=== PATIENT | female | born 1945 | race Caucasian/White ===

== ENCOUNTER → 2017-08-21 | Day surgery (SDC) | payer MEDICARE ==
[~2017-08-21] MED LIST: HYDROmorphone 2 MG/ML VIAL IV; LIDOCAINE 1% PF 2 ML VIAL. ID; LIDOCAINE 2% PF Vial for OR 5 ML VIAL.; MIDAZOLAM HCL/PF 2 MG/2 ML VIAL.; MORPHINE SULFATE 2 MG/ML DISP.SYRIN. IV; ONDANSETRON PF 4 MG/2 ML VIAL. IV; PROCHLORPERAZINE 10 MG/2 ML VIAL. IV; PROPOFOL 50 ML IV; fentaNYL PF VIAL 100 MCG/2 ML VIAL IV
[2017-08-21] MEDS: IV RINGERS,LACTATED 1000ML 1,000 ML IV (07:00)
== END | disposition home or self-care (01) ==
LOC: SURG 11:04
DX: M48.56XD Collapsed vertebra, not elsewhere classified, lumbar region, subsequent encounter for fracture with routine healing (principal); M54.5 Low back pain; M47.896 Other spondylosis, lumbar region; I95.89 Other hypotension; I10 Essential (primary) hypertension; I25.10 Atherosclerotic heart disease of native coronary artery without angina pectoris; E11.9 Type 2 diabetes mellitus without complications; E78.5 Hyperlipidemia, unspecified; K57.30 Diverticulosis of large intestine without perforation or abscess without bleeding; J44.9 Chronic obstructive pulmonary disease, unspecified; Z98.890 Other specified postprocedural states; Z79.82 Long term (current) use of aspirin; Z79.899 Other long term (current) drug therapy; Z95.5 Presence of coronary angioplasty implant and graft; Z88.8 Allergy status to other drugs, medicaments and biological substances
CPT/HCPCS: 22514; 99152; 99153; J2250; J2704

== ENCOUNTER → 2017-08-21 | Outpatient (CLI) | payer MEDICARE ==
[~2017-08-21] MED LIST changes: -HYDROmorphone 2 MG/ML VIAL IV; +IOHEXOL 240 MG/ML 50ML VIAL.; -LIDOCAINE 1% PF 2 ML VIAL. ID; -LIDOCAINE 2% PF Vial for OR 5 ML VIAL.; +LIDOCAINE WITH 8.4% SOD BICARB 3 ML DISP.SYRIN.; -MIDAZOLAM HCL/PF 2 MG/2 ML VIAL.; -MORPHINE SULFATE 2 MG/ML DISP.SYRIN. IV; -ONDANSETRON PF 4 MG/2 ML VIAL. IV; -PROCHLORPERAZINE 10 MG/2 ML VIAL. IV; -PROPOFOL 50 ML IV; +VANCOMYCIN 1GM IVPB FOR OMNI 250 ML; -fentaNYL PF VIAL 100 MCG/2 ML VIAL IV
[2017-08-21 11:30] LABS: ADD MAN DIFF? NO
[2017-08-21 11:33] LABS: BASO # 0.1 x10^3/uL (0.0-0.2); BASO % 1 % (0-3); EOS # 0.2 x10^3/uL (0.0-0.7); EOS % 2 % (0-3); LYMPH # 2.9 x10^3/uL (1.0-4.8); LYMPH % 38 % (24-48); MEAN CORPUSCULAR HEMOGLOBIN 30 pg (25-35); MEAN CORPUSCULAR HGB CONC 33 g/dL (31-37); MEAN CORPUSCULAR VOLUME 90 fL (79-100); MONO # 0.8 x10^3/uL (0.0-1.1); MONO % 10 % (0-9); NEUT # 3.6 x10^3uL (1.8-7.7); NEUT % 48 % (31-73); PLATELET COUNT 191 x10^3/uL (140-400); RED BLOOD COUNT 4.69 x10^6/uL (3.50-5.40); RED CELL DISTRIBUTION WIDTH 13.1 % (11.5-14.5); WHITE BLOOD COUNT 7.5 x10^3/uL (4.0-11.0)
[2017-08-21 11:41] LABS: PROTHROMBIN TIME PATIENT 12.6 SEC (11.7-14.0)
[2017-08-21] MEDS: VANCOMYCIN 1GM IVPB FOR OMNI 250 ML IV ×2 (12:11)
[2017-08-21] MEDS: IOHEXOL 240 MG/ML 50ML VIAL. IT ×2 (12:45)
[2017-08-21] MEDS: LIDOCAINE WITH 8.4% SOD BICARB 3 ML DISP.SYRIN. IJ ×2 (12:45)
== END | disposition home or self-care (01) ==
LOC: INTRAD 11:08
DX: M48.56XA Collapsed vertebra, not elsewhere classified, lumbar region, initial encounter for fracture (principal); Z79.01 Long term (current) use of anticoagulants; E11.42 Type 2 diabetes mellitus with diabetic polyneuropathy; J44.9 Chronic obstructive pulmonary disease, unspecified; E78.00 Pure hypercholesterolemia, unspecified; K21.9 Gastro-esophageal reflux disease without esophagitis; F32.9 Major depressive disorder, single episode, unspecified; F17.200 Nicotine dependence, unspecified, uncomplicated; I25.10 Atherosclerotic heart disease of native coronary artery without angina pectoris; Z87.39 Personal history of other diseases of the musculoskeletal system and connective tissue; Z86.69 Personal history of other diseases of the nervous system and sense organs; Z86.39 Personal history of other endocrine, nutritional and metabolic disease; Z90.710 Acquired absence of both cervix and uterus; Z88.8 Allergy status to other drugs, medicaments and biological substances; Z88.1 Allergy status to other antibiotic agents; Z91.040 Latex allergy status; Z90.49 Acquired absence of other specified parts of digestive tract
CPT/HCPCS: 22514; 36415; 85025; 85610; 99152; 99153; C1758; J3370; Q9966

== ENCOUNTER → 2017-10-22 | Outpatient (CLI) | payer MEDICARE | END | disposition home or self-care (01) | LOC: KCIC MRI 11:58 | DX: M48.56XD Collapsed vertebra, not elsewhere classified, lumbar region, subsequent encounter for fracture with routine healing (principal); M51.37 Other intervertebral disc degeneration, lumbosacral region; M48.061 Spinal stenosis, lumbar region without neurogenic claudication; M47.896 Other spondylosis, lumbar region; M25.78 Osteophyte, vertebrae; Z91.81 History of falling | CPT/HCPCS: 72148 ==

== ENCOUNTER 2018-04-01 15:00 | Inpatient (IN) | payer MEDICARE ==
[~2018-04-01] VITALS: Ht 160 cm; Wt 82.2 kg
[~2018-04-01 15:00] MED LIST changes: +AMLO5TAB7 PO; +ASPI-482 PO; +ATOR40TA59 PO; +ATORVASTATIN CA80 MG PO; +BENZ-8 PO; +BYSTOLIC10 MG PO; +CALC1TAB75 PO; +CARV6.252 PO; +CHOL10003 PO; +CITA10TA8 PO; +CYAN10005 PO; +DIPH50CA PO; +FLUT16SP NS; +GABA600T2 PO; +HYDR25TA9 PO; -IOHEXOL 240 MG/ML 50ML VIAL.; +IPRA3AMP29 NEB; +LEVALBUTER0.63 MG/3 IH; -LIDOCAINE WITH 8.4% SOD BICARB 3 ML DISP.SYRIN.; +LOSA50TA7 PO; +METH500T7 PO; +NAPR250T6 PO; +OMEP20CA9 PO; +OMEP40CA5 PO; +PRAS10TA9 PO; +SENN1TAB99 PO; +TIOT18CA IH; +TRAZ-86 PO; -VANCOMYCIN 1GM IVPB FOR OMNI 250 ML
--- NOTE | 2018-04-01 17:20 | PDOC1 ---
History and Physical Date of Admission Date of Admission DATE: 04/01/18 TIME: 17:19 Identification/Chief Complaint Chief Complaint seen at [facility] ER with chest tightness x 1 week, has known hx CAD/ STENTS, followed by [facility] cardiology. still smokes lightly, hx hx asthma/ copd, transferred here for cardiology eval, stat v/q, and doppler of legs notes pain radiates to neck, is better at this time, some pain in left calf, no known hx dvt's Past Medical History Cardiovascular: CAD, HTN, [place] GI: GERD Musculoskeletal: Osteoarthritis Renal/: Chronic renal insuff Past Surgical History Past Surgical History: Appendectomy, Cholecystectomy, Tonsillectomy, Hysterectomy Family History Family History: High Cholestrol Social History Smoke: <1 pack per day ALCOHOL: occassional Drugs: None Current Medications Current Medications Active Scripts Active Reported Duoneb 0.5-3(2.5) Mg/3 Ml (Albuterol/Ipratropium) 3 Ml Ampul.neb 3 Ml NEB TID PRN PRN Diphenhydramine Hcl 50 Mg Capsule 25 Mg PO Q4-6HRS PRN Carvedilol 6.25 Mg Tablet 1 Tab PO BID Vitamin D3 (Cholecalciferol (Vitamin D3)) 1,000 Unit Tablet 2,000 Unit PO DAILY Vitamin B-12 (Cyanocobalamin (Vitamin B-12)) 1,000 Mcg Tablet 5,000 Mcg PO DAILY Omeprazole 40 Mg Capsule.dr 40 Mg PO DAILY Atorvastatin Calcium 80 Mg Tablet 80 Mg PO HS Fluticasone Propionate Nasal [place] (Fluticasone Propionate) 16 Gm [place].susp 1 [place] NS BID Trazodone Hcl 100 Mg Tablet 1 Tab PO QHS Spiriva (Tiotropium [place]) 18 Mcg Cap.w.dev 1 Cap IH DAILY Losartan Potassium 50 Mg Tablet 50 Mg PO DAILY Gabapentin 600 Mg Tablet 600 Mg PO TID Celexa (Citalopram Hydrobromide) 10 Mg Tablet 1 Tab PO DAILY Aspir 81 (Aspirin) 81 Mg Tablet.dr 1 Tab PO DAILY Allergies Allergies: Coded Allergies: ampicillin (Verified Allergy, Intermediate, 10/03/15) cyclobenzaprine (Verified Allergy, Intermediate, 10/03/15) latex (Verified Allergy, Intermediate, 10/03/15) pravastatin (Verified Allergy, Intermediate, 08/13/17) ROS Review of System 14 pt ros otherwise neg General: No: Chills, Night Sweats, Fatigue, Malaise, Appetite, Other PSYCHOLOGICAL ROS: No: Anxiety, Behavioral Disorder, Concentration difficultie , Decreased libido, Depression, Disorientation, Hallucinations, Hostility, Irritablity, Memory difficulties, Mood Swings, Obsessive thoughts, Physical abuse, Sexual abuse, Sleep disturbances, Suicidal ideation, Other Eyes: No Blurry vision, No Decreased vision, No Double vision, No Dry eyes, No Excessive tearing, No Eye Pain, No Itchy Eyes, No Loss of vision, No Photophobia , No Scotomata, No Uses contacts, No Uses glasses, No Other HEENT: YES: Hearing change; No: Heacaches, Visual Changes, Nasal congestion, Nasal discharge, Oral lesions, Sinus pain, Sore Throat, Epistaxis, Sneezing, Snoring, Tinnitus, Vertigo, Vocal changes, Other ALLERGY AND IMMUNOLOGY: No: Hives, Insect Bite Sensitivity, Itchy/Watery Eyes, Nasal Congestion, Post Nasal Drip, Seasonal Allergies, Other Hematological and Lymphatic: No: Bleeding Problems, Blood Clots, Blood Transfusions, Brusing, Night Sweats, Pallor, Swollen Lymph Nodes, Other ENDOCRINE: No: Breast Changes, Galactorrhea, Hair Pattern Changes, Hot Flashes , Malaise/lethargy, Mood Swings, Palpitations, Polydipsia/polyuria, Skin Changes , Temperature Intolerance, Unexpected Weight Changes, Other Respiratory: YES: Cough, Shortness of breath, SOB with excertion Cardiovascular: yes Chest Pain Musculoskeletal: Yes Joint Stiffness Skin: No Dry Skin, No Eczema, No Hair Changes, No Lumps, No Mole Changes, No Mottling, No Nail Changes, No Pruritus, No Rash, No Skin Lesion Changes, No Other, No Acne Physical Exam General: Alert, Oriented X3, Cooperative HEENT: Atraumatic, PERRLA Lungs: Clear to auscultation Heart: S1S2, RRR Breasts: Not examined Abdomen: Normal bowel sounds, Soft Rectal Exam: not examined PELVIC: Examination not indicated Extremities: No clubbing, No cyanosis, Other (trace left leg edema) Neuro: Normal gait, Normal speech, Cranial nerves 3-12 NL Psych/Mental Status: Mental status NL, Mood NL VTE Prophylaxis Ordered VTE Prophylaxis Devices: Yes VTE Pharmacological Prophylaxi: Yes Assessment/Plan Assessment/Plan impression 1. chest pain with known CAD 2. HTN 3, GERD 4. COPD 5. HX ASTHMA 6. HX depression 7. elevated d-dimer plan 1. cvc admit 2. cardiology consult 3. stat vq scan 4, statin 5. sq lovenox 70mg sq bid 6, gi prophylaxis 7. yehuda troponin i 8. stat venous doppler both legs DANIELLE PARKER MD Apr 01, 2018 17:20
[2018-04-01] MEDS ORDERED: MAGNESIUM HYDROXIDE 2,400 MG/30 ML ORAL.SUSP. PO PRN (17:30)
[2018-04-01] MEDS ORDERED: NITROGLYCERIN SUBLINGUAL 0.4 MG BOTTLE OF 25. SL PRN (17:30)
[2018-04-01] MEDS ORDERED: ASPIRIN 325 MG TABLET PO ONE (17:30)
[2018-04-01] MEDS ORDERED: ACETAMINOPHEN 325 MG TABLET. PO PRN (17:30)
[2018-04-01] MEDS ORDERED: 0.9 % SODIUM CHLORIDE 10 ML DISP.SYRIN. IV PRN (17:30)
[2018-04-01] MEDS ORDERED: PROCHLORPERAZINE 25 MG SUPP.RECT. PR PRN (17:30)
[2018-04-01] MEDS ORDERED: CALC600T4 PO (17:31)
[2018-04-01] MEDS ORDERED: MECL25TA3 PO (17:31)
[2018-04-01] MEDS ORDERED: TIOT18CA IH (17:31)
[2018-04-01] MEDS ORDERED: CITA10TA4 PO (17:36)
[2018-04-01] MEDS ORDERED: IPRA0.2S5 IH (17:36)
[2018-04-01] MEDS ORDERED: DICL75TA PO (17:36)
[2018-04-01] MEDS ORDERED: LOSA100T7 PO (17:36)
[2018-04-01] MEDS ORDERED: MECLIZINE HCL 12.5 MG TABLET. PO PRN (18:00)
[2018-04-01] MEDS: CARVEDILOL 6.25 MG TABLET. PO SCH (18:16)
[2018-04-01] MEDS: IV NORMAL SALINE 1000ML BAG 1,000 ML IV SCH (18:17)
[2018-04-01] MEDS: NITROGLYCERIN OINT 1 GM PACKET. TP SCH ×2 (18:17→23:35)
[2018-04-01 19:00] VITALS: BP 170/77
--- NOTE | 2018-04-01 19:08 | RAD ---
Ultrasound venous Doppler INDICATION:LEFT CALF PAIN TECHNIQUE: Grayscale, color Doppler and spectral waveform ultrasound images of the bilateral lower extremities deep veins obtained. COMPARISON: None FINDINGS: The interrogated deep veins are compressible and demonstrate evidence of blood flow with normal respiratory variation and response to augmentation. IMPRESSION: No sonographic evidence of acute DVT of the bilateral lower extremity deep veins. Electronically signed by: Alexi He DO (04/01/2018 7:05 PM) [facility]
[2018-04-01] MEDS: IPRATRPIUM/ALBUTEROL 0.5/2.5MG 3 ML NEBU. NEB SCH (19:46)
[2018-04-01] MEDS ORDERED: ENOXAPARIN 40 MG/0.4 ML SYRINGE. SQ SCH (21:00)
--- NOTE | 2018-04-01 21:00 | RAD ---
Indication: Chest pain for one week. Positive d-dimer. TECHNIQUE: Nuclear medicine VQ scan with 20 mCi of xenon-133 for ventilation imaging and 6.3 mCi of technetium 99m MAA for perfusion imaging. COMPARISON: None FINDINGS: The ventilation exam demonstrates homogeneous distribution of the xenon-133 with appropriate washout and washout. Multiple wedge-shaped areas of ventilation/perfusion mismatch is seen in both lungs. IMPRESSION: High probability VQ scan. CT angiogram of the chest is strongly recommended. Electronically signed by: Alexi He DO (04/01/2018 8:56 PM) [facility]
[2018-04-01] MEDS: FLUTICASONE 50MCG/NASAL SPRAY 16GM BOTTLE. NS SCH (21:34)
[2018-04-01] MEDS: GABAPENTIN 300 MG CAPSULE. PO SCH (21:34)
[2018-04-01] MEDS: DICLOFENAC SODIUM 25 MG TABLET.DR PO SCH (21:35)
[2018-04-01] MEDS: DOCUSATE SODIUM 100 MG CAPSULE. PO SCH (21:35)
[2018-04-01] MEDS: traZODone 100 MG TABLET. PO SCH (21:35)
[2018-04-01] MEDS: SENNOSIDES/DOCUSATE 8.6/50MG TABLET. PO SCH (21:36)
[2018-04-01] MEDS: ATORVASTATIN CALCIUM 40 MG TABLET. PO SCH (21:36)
[2018-04-01] MEDS ORDERED: IPRATROPIUM BROMIDE 0.5 MG/2.5 ML NEBU. IH SCH (22:00)
[2018-04-01 22:32] VITALS: BP 140/62
[2018-04-02] VITALS (8 sets, daily range): BP systolic 99–181; BP diastolic 37–77
[2018-04-02] MEDS: ONDANSETRON PF 4 MG/2 ML VIAL. IV PRN (01:56)
[2018-04-02] MEDS: MORPHINE SULFATE 2 MG/ML VIAL. IV PRN ×5 (01:56→22:59)
[2018-04-02] MEDS: ENALAPRILAT 1.25 MG/ML VIAL. IVP PRN (03:30)
[2018-04-02] MEDS: IV NORMAL SALINE 1000ML BAG 1,000 ML IV SCH ×3 (03:30→20:39)
[2018-04-02 05:20] LABS: BASO # 0.1 x10^3/uL (0.0-0.2); BASO % 1 % (0-3); EOS # 0.3 x10^3/uL (0.0-0.7); EOS % 3 % (0-3); HEMATOCRIT 35.6 % (36.0-47.0); LYMPH % 43 % (24-48); MEAN CORPUSCULAR HEMOGLOBIN 31 pg (25-35); MEAN CORPUSCULAR HGB CONC 34 g/dL (31-37); MEAN CORPUSCULAR VOLUME 91 fL (79-100); MONO % 10 % (0-9); NEUT % 42 % (31-73); PLATELET COUNT 202 x10^3/uL (140-400); RED BLOOD COUNT 3.92 x10^6/uL (3.50-5.40); RED CELL DISTRIBUTION WIDTH 13.3 % (11.5-14.5); WHITE BLOOD COUNT 9.4 x10^3/uL (4.0-11.0)
[2018-04-02 05:27] LABS: ALBUMIN 3.1 g/dL (3.4-5.0); ALBUMIN/GLOBULIN RATIO 0.9 (1.0-1.7); CALCIUM 8.8 mg/dL (8.5-10.1); GFR 54.7; POTASSIUM 4.8 mmol/L (3.5-5.1); TOTAL BILIRUBIN 0.3 mg/dL (0.2-1.0); TOTAL PROTEIN 6.6 g/dL (6.4-8.2)
[2018-04-02] MEDS: NITROGLYCERIN OINT 1 GM PACKET. TP SCH ×4 (06:20→22:59)
[2018-04-02] MEDS: IPRATRPIUM/ALBUTEROL 0.5/2.5MG 3 ML NEBU. NEB SCH ×4 (07:28→19:05)
--- NOTE | 2018-04-02 07:55 | EKG ---
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
[2018-04-02 08:06] LABS: CHOLESTEROL/HDL RATIO 4.5
[2018-04-02] MEDS: LOSARTAN POTASSIUM 50 MG TABLET. PO SCH (09:00)
--- NOTE | 2018-04-02 09:45 | PDOC2 ---
[employer] 04/02/18 0945: CARDIAC CONSULT DATE OF CONSULT Date of Consult DATE: 04/02/18 TIME: 09:41 REASON FOR CONSULT Reason for Consult: chest pain REFERRING PHYSICIAN Referring Physician: Giovanni SOURCE Source: Chart review, Patient HISTORY OF PRESENT ILLNESS HISTORY OF PRESENT ILLNESS 72 year old female transferred from [facility] after presenting there with a one week history of chest heaviness involving the entire thoracic region. Associated with dizziness and nausea. Usually starts at night or awakens her from sleep. She has treated with multiple doses of aspirin. D-Dimer @ [facility] > [address] there due to elevated Cr. LE venous Dopplers negative for DVT; VQ scan high probability for PE. Only recent travel was 1.5 hr car trip to [facility]. Denies prior history of DVT/PE. History of CAD with stents placed to unknown targets @ [facility]. BP with accelerated HTN Reason for Visit: prob pulm embolus PAST MEDICAL HISTORY Cardiovascular: CAD (with prior PCI/stents-2015), HTN, [place], Hyperlipidemia Pulmonary: Asthma, COPD CENTRAL NERVOUS SYSTEM: Other (none) GI: GERD Heme/Onc: No pertinent hx Hepatobiliary: No pertinent hx Psych: No pertinent hx Musculoskeletal: No pain Rheumatologic: No pertinent hx Infectious disease: No pertinent hx Renal/: Chronic renal insuff Endocrine: No pertinent hx Dermatology: No pertinent hx PAST SURGICAL HISTORY Past Surgical History: Appendectomy, Cholecystectomy, Tonsillectomy, Hysterectomy FAMILY HISTORY Family History: High Cholestrol SOCIAL HISTORY Smoke: <1 pack per day ALCOHOL: social Drugs: None Lives: with Family CURRENT MEDICATIONS CURRENT MEDICATIONS Current Medications Medications (Trade) Dose Ordered Sig/Gale Route PRN Reason Start Time Stop Time Status Last Admin Dose Admin Aspirin (Gerry Aspirin) 325 mg 1X ONCE PO 04/01/18 17:30 04/01/18 17:31 DC 04/01/18 18:16 Nitroglycerin (Nitro-Bid Oint) 1 inch Q6HRS TP 04/01/18 18:00 04/01/18 23:35 Morphine Sulfate (Morphine Sulfate) 1 mg PRN Q10MIN PRN IV CHEST PAIN 04/01/18 17:30 04/02/18 03:29 Ondansetron HCl (Zofran) 4 mg PRN Q6HRS PRN IV NAUSEA/VOMITING 9/13/18 17:30 04/02/18 01:56 Sodium Chloride 1,000 ml @ 100 mls/hr Q10H IV 04/01/18 17:21 04/02/18 03:30 Senna/Docusate Sodium (Senna Plus) 1 tab BID PO 04/01/18 21:00 04/01/18 21:36 Docusate Sodium (Colace) 100 mg BID PO 04/01/18 21:00 04/01/18 21:35 Carvedilol (Coreg) 6.25 mg BIDWMEALS PO 04/01/18 18:00 04/01/18 18:16 Fluticasone Propionate (Flonase) 1 spray BID NS 04/01/18 21:00 04/01/18 21:34 Trazodone HCl (Desyrel) 100 mg QHS PO 04/01/18 21:00 04/01/18 21:35 Atorvastatin Calcium (Lipitor) 80 mg QHS PO 04/01/18 21:00 04/01/18 21:36 Diclofenac Sodium (Voltaren) 75 mg BID PO 04/01/18 21:00 04/01/18 21:35 Gabapentin (Neurontin) 600 mg TID PO 04/01/18 21:00 04/01/18 21:34 Albuterol/ Ipratropium (Duoneb) 3 ml RTQID NEB 04/01/18 20:00 04/02/18 07:28 Enoxaparin Sodium (Lovenox 80mg Syringe) 80 mg Q12HR SQ 04/01/18 19:01 04/02/18 07:18 DC 04/01/18 18:18 Enalaprilat (Vasotec Inj) 1.25 mg PRN Q6HRS PRN IVP HYPERTENSION, SEE COMMENTS 04/02/18 03:15 04/02/18 03:30 ALLERGIES ALLERGIES: Coded Allergies: ampicillin (Verified Allergy, Intermediate, 10/03/15) cyclobenzaprine (Verified Allergy, Intermediate, 10/03/15) latex (Verified Allergy, Intermediate, 10/03/15) pravastatin (Verified Allergy, Intermediate, 08/13/17) ROS General: No: Chills, Night Sweats, Fatigue, Malaise, Appetite, Other PSYCHOLOGICAL ROS: No: Anxiety, Behavioral Disorder, Concentration difficultie , Decreased libido, Depression, Disorientation, Hallucinations, Hostility, Irritablity, Memory difficulties, Mood Swings, Obsessive thoughts, Physical abuse, Sexual abuse, Sleep disturbances, Suicidal ideation, Other Eyes: No Blurry vision, No Decreased vision, No Double vision, No Dry eyes, No Excessive tearing, No Eye Pain, No Itchy Eyes, No Loss of vision, No Photophobia , No Scotomata, No Uses contacts, No Uses glasses, No Other HEENT: No: Heacaches, Visual Changes, Hearing change, Nasal congestion, Nasal discharge, Oral lesions, Sinus pain, Sore Throat, Epistaxis, Sneezing, Snoring, Tinnitus, Vertigo, Vocal changes, Other ENDOCRINE: No: Breast Changes, Galactorrhea, Hair Pattern Changes, Hot Flashes , Malaise/lethargy, Mood Swings, Palpitations, Polydipsia/polyuria, Skin Changes , Temperature Intolerance, Unexpected Weight Changes, Other Breast: No New/Changing Breast Lumps, No Nipple changes, No Nipple discharge, No Other Respiratory: No: Cough, Hemoptysis, Orthopnea, Pleuritic Pain, Shortness of breath, SOB with excertion, Sputum Changes, Stridor, Tachypnea, Wheezing, Other Cardiovascular: yes Chest Pain Gastrointestinal: Yes Nausea, Yes Vomiting Genitourinary: No Dysuria, No Frequency, No Incontinence, No Hematuria, No Retention, No Discharge, No Urgency, No Pain, No Flank Pain, No Other Musculoskeletal: No Gait Disturbance, No Joint Pain, No Joint Stiffness, No Joint Swelling, No Muscle Pain, No Muscular Weakness, No Pain In:, No Swelling In:, No Other Neurological: No Behavorial Changes, No Bowel/Bladder ControlChng, No Confusion , No Dizziness, No Gait Disturbance, No Headaches, No Impaired Coord/balance, No Memory Loss, No Numbness/Tingling, No Seizures, No Speech Problems, No Tremors, No Visual Changes, No Weakness, No Other Skin: No Dry Skin, No Eczema, No Hair Changes, No Lumps, No Mole Changes, No Mottling, No Nail Changes, No Pruritus, No Rash, No Skin Lesion Changes, No Other, No Acne PHYSICAL EXAM General: Alert, Oriented X3, Cooperative HEENT: Atraumatic, PERRLA Lungs: Clear to auscultation Heart: Normal S1, Normal S2, No murmurs Abdomen: Soft Extremities: No edema, Normal pulses Skin: No rashes Neuro: Normal speech Psych/Mental Status: Mental status NL, Mood NL MUSCULOSKELETAL: No deformity VITALS VITALS Vital Signs Date Time Temp Pulse Resp B/P (MAP) Pulse Ox O2 Delivery O2 Flow Rate FiO2 04/02/18 07:28 95 Room Air 04/02/18 06:15 98.2 65 16 99/43 (61) 2.0 98.2 LABS Lab: Laboratory Tests Test 04/01/18 17:30 04/01/18 20:20 04/01/18 20:57 04/02/18 02:30 Prothrombin Time 12.0 SEC (11.7-14.0) Prothromb Time International Ratio 0.9 (0.8-1.1) Troponin I Quantitative < 0.017 ng/mL (0.000-0.055) < 0.017 ng/mL (0.000-0.055) < 0.017 ng/mL (0.000-0.055) Glucose (Fingerstick) 135 mg/dL (70-99) White Blood Count 9.4 x10^3/uL (4.0-11.0) Red Blood Count 3.92 x10^6/uL (3.50-5.40) Hemoglobin 12.0 g/dL (12.0-15.5) Hematocrit 35.6 % (36.0-47.0) Mean Corpuscular Volume 91 fL (79-100) Mean Corpuscular Hemoglobin 31 pg (25-35) Mean Corpuscular Hemoglobin Concent 34 g/dL (31-37) Red Cell Distribution Width 13.3 % (11.5-14.5) Platelet Count 202 x10^3/uL (140-400) Neutrophils (%) (Auto) 42 % (31-73) Lymphocytes (%) (Auto) 43 % (24-48) Monocytes (%) (Auto) 10 % (0-9) Eosinophils (%) (Auto) 3 % (0-3) Basophils (%) (Auto) 1 % (0-3) Neutrophils # (Auto) 4.0 x10^3uL (1.8-7.7) Lymphocytes # (Auto) 4.0 x10^3/uL (1.0-4.8) Monocytes # (Auto) 1.0 x10^3/uL (0.0-1.1) Eosinophils # (Auto) 0.3 x10^3/uL (0.0-0.7) Basophils # (Auto) 0.1 x10^3/uL (0.0-0.2) Sodium Level 144 mmol/L (136-145) Potassium Level 4.8 mmol/L (3.5-5.1) Chloride Level 105 mmol/L (98-107) Carbon Dioxide Level 34 mmol/L (21-32) Anion Gap 5 (6-14) Blood Urea Nitrogen 23 mg/dL (7-20) Creatinine 1.0 mg/dL (0.6-1.0) Estimated GFR (Cockcroft-Gault) 54.7 BUN/Creatinine Ratio 23 (6-20) Glucose Level 131 mg/dL (70-99) Calcium Level 8.8 mg/dL (8.5-10.1) Total Bilirubin 0.3 mg/dL (0.2-1.0) Aspartate Amino Transf (AST/SGOT) 24 U/L (15-37) Alanine Aminotransferase (ALT/SGPT) 29 U/L (14-59) Alkaline Phosphatase 90 U/L (46-116) Total Protein 6.6 g/dL (6.4-8.2) Albumin 3.1 g/dL (3.4-5.0) Albumin/Globulin Ratio 0.9 (1.0-1.7) Triglycerides Level 193 mg/dL (0-150) Cholesterol Level 176 mg/dL (0-200) LDL Cholesterol, Calculated 98 mg/dL (0-100) VLDL Cholesterol, Calculated 39 mg/dL (0-40) Non-HDL Cholesterol Calculated 137 mg/dL (0-129) HDL Cholesterol 39 mg/dL (40-60) Cholesterol/HDL Ratio 4.5 Thyroid Stimulating Hormone (TSH) 1.059 uIU/mL (0.358-3.74) Test 04/02/18 08:25 Glucose (Fingerstick) 117 mg/dL (70-99) EKG EKG SR; no acute changes ECHOCARDIOGRAM ECHOCARDIOGRAM pending ASSESSMENT/PLAN ASSESSMENT/PLAN 1. chest pain --atypical presentation --troponin levels not consistent with AMI --EKG without acute changes --TTE to evaluate LVEF and assess for WMA --request records from [place] 2. pulmonary embolus --high prob VQ scan --continue BID lovenox --? CTA to confirm; defer to pulm 3. Asthma/COPD --persistent tobacco abuse --defer to pulm 4. HTN --continue usual meds 5. HLD --check FLP --continue statin therapy 6. GERD --continue home meds INEZ CARROLL MD 04/02/182: CARDIAC CONSULT ASSESSMENT/PLAN ASSESSMENT/PLAN Pt. seen and examined. Agree with above [employer] note. 72 y.o woman with prior CAD s/p PCI. Denies any recurrent similar symptoms but has diffuse chest pressure with features suggestive of unstable angina. She also has atypical features in the setting of GERD and prior esophageal issues and dysphagia. Given significant cardiac history with an abnormal EKG, will plan for cath in a.m. Discussed r/b/a and patient wishes to proceed. Thanks. Will f/u after cath. MAXIMO WAITE APRN Apr 02, 2018 09:45 INEZ CARROLL MD Apr 02, 2018 18:12
[2018-04-02] MEDS: CALCIUM CARBONATE 500 MG TABLET PO SCH (10:18)
[2018-04-02] MEDS: GABAPENTIN 300 MG CAPSULE. PO SCH ×3 (10:18→20:35)
[2018-04-02] MEDS: CARVEDILOL 6.25 MG TABLET. PO SCH ×2 (10:20→17:52)
[2018-04-02] MEDS: PANTOPRAZOLE 40 MG TABLET.DR. PO SCH (10:21)
[2018-04-02] MEDS: CYANOCOBALAMIN (VITAMIN B-12) 1,000 MCG TABLET. PO SCH (10:21)
[2018-04-02] MEDS: DOCUSATE SODIUM 100 MG CAPSULE. PO SCH ×2 (10:21→20:34)
[2018-04-02] MEDS: SENNOSIDES/DOCUSATE 8.6/50MG TABLET. PO SCH ×2 (10:21→20:39)
[2018-04-02] MEDS: FLUTICASONE 50MCG/NASAL SPRAY 16GM BOTTLE. NS SCH ×2 (10:22→20:34)
[2018-04-02] MEDS: CHOLECALCIFEROL (VITAMIN D3) 1,000 UNIT TABLET PO SCH (10:22)
[2018-04-02] MEDS: CITALOPRAM 10 MG TABLET. PO SCH (10:22)
[2018-04-02] MEDS: ASPIRIN ENTERIC COATED 81 MG TABLET.DR. PO SCH (10:22)
[2018-04-02] MEDS: DICLOFENAC SODIUM 25 MG TABLET.DR PO SCH ×2 (10:22→20:35)
--- NOTE | 2018-04-02 10:25 | PDOC ---
PROGRESS NOTES Chief Complaint Chief Complaint CC: Chest pain DE, 2 stents CAD HTN GERD Osteoarthritis Chronic renal insufficiency Appendectomy Cholecystectomy Tonsillectomy Hysterectomy <1 ppd smoker History of Present Illness History of Present Illness Pt. seen and examined Pt. alert and oriented; pt's affect good Pt. was seen at [facility] ER for 1 wk chest tightness; hx of CAD and 2 stents DW nursing Pt. receiving echo upon entrance Cardiac workup in-progress Troponin I: <0.017 (04/02) Vitals Vitals Vital Signs Date Time Temp Pulse Resp B/P (MAP) Pulse Ox O2 Delivery O2 Flow Rate FiO2 04/02/18 09:52 63 111/51 (71) 04/02/18 07:28 95 Room Air 04/02/18 06:15 98.2 16 2.0 98.2 Physical Exam General: Alert, Oriented X3, Cooperative Heart: Regular rate, Normal S1, Normal S2 Lungs: Clear Abdomen: Normal bowel sounds, Soft Extremities: No clubbing, No cyanosis, Other (trace left leg edema) Skin: No rashes, No breakdown Labs LABS Laboratory Tests Test 04/01/18 17:30 04/01/18 20:20 04/01/18 20:57 04/02/18 02:30 Prothrombin Time 12.0 SEC (11.7-14.0) Prothromb Time International Ratio 0.9 (0.8-1.1) Troponin I Quantitative < 0.017 ng/mL (0.000-0.055) < 0.017 ng/mL (0.000-0.055) < 0.017 ng/mL (0.000-0.055) Glucose (Fingerstick) 135 mg/dL (70-99) White Blood Count 9.4 x10^3/uL (4.0-11.0) Red Blood Count 3.92 x10^6/uL (3.50-5.40) Hemoglobin 12.0 g/dL (12.0-15.5) Hematocrit 35.6 % (36.0-47.0) Mean Corpuscular Volume 91 fL (79-100) Mean Corpuscular Hemoglobin 31 pg (25-35) Mean Corpuscular Hemoglobin Concent 34 g/dL (31-37) Red Cell Distribution Width 13.3 % (11.5-14.5) Platelet Count 202 x10^3/uL (140-400) Neutrophils (%) (Auto) 42 % (31-73) Lymphocytes (%) (Auto) 43 % (24-48) Monocytes (%) (Auto) 10 % (0-9) Eosinophils (%) (Auto) 3 % (0-3) Basophils (%) (Auto) 1 % (0-3) Neutrophils # (Auto) 4.0 x10^3uL (1.8-7.7) Lymphocytes # (Auto) 4.0 x10^3/uL (1.0-4.8) Monocytes # (Auto) 1.0 x10^3/uL (0.0-1.1) Eosinophils # (Auto) 0.3 x10^3/uL (0.0-0.7) Basophils # (Auto) 0.1 x10^3/uL (0.0-0.2) Sodium Level 144 mmol/L (136-145) Potassium Level 4.8 mmol/L (3.5-5.1) Chloride Level 105 mmol/L (98-107) Carbon Dioxide Level 34 mmol/L (21-32) Anion Gap 5 (6-14) Blood Urea Nitrogen 23 mg/dL (7-20) Creatinine 1.0 mg/dL (0.6-1.0) Estimated GFR (Cockcroft-Gault) 54.7 BUN/Creatinine Ratio 23 (6-20) Glucose Level 131 mg/dL (70-99) Calcium Level 8.8 mg/dL (8.5-10.1) Total Bilirubin 0.3 mg/dL (0.2-1.0) Aspartate Amino Transf (AST/SGOT) 24 U/L (15-37) Alanine Aminotransferase (ALT/SGPT) 29 U/L (14-59) Alkaline Phosphatase 90 U/L (46-116) Total Protein 6.6 g/dL (6.4-8.2) Albumin 3.1 g/dL (3.4-5.0) Albumin/Globulin Ratio 0.9 (1.0-1.7) Triglycerides Level 193 mg/dL (0-150) Cholesterol Level 176 mg/dL (0-200) LDL Cholesterol, Calculated 98 mg/dL (0-100) VLDL Cholesterol, Calculated 39 mg/dL (0-40) Non-HDL Cholesterol Calculated 137 mg/dL (0-129) HDL Cholesterol 39 mg/dL (40-60) Cholesterol/HDL Ratio 4.5 Thyroid Stimulating Hormone (TSH) 1.059 uIU/mL (0.358-3.74) Test 04/02/18 08:25 Glucose (Fingerstick) 117 mg/dL (70-99) Review of Systems Review of Systems C/O weakness Pt. denies current chest pain Assessment and Plan Assessmemt and Plan CC: Chest pain Assessment: Chest pain DE, 2 stents CAD HTN GERD Osteoarthritis Chronic renal insufficiency Appendectomy Cholecystectomy Tonsillectomy Hysterectomy <1 ppd smoker Plan: Continue cardiac monitoring Awaiting echo results and cardiac workup Fu w/ cardio; appreciate input Monitor labs PT/OT Home meds Continue current diet Comment Review of Relevant I have reviewed the following items sarah (where applicable) has been applied. Labs Laboratory Tests Test 04/01/18 17:30 04/01/18 20:20 04/01/18 20:57 04/02/18 02:30 Prothrombin Time 12.0 SEC (11.7-14.0) Prothromb Time International Ratio 0.9 (0.8-1.1) Troponin I Quantitative < 0.017 ng/mL (0.000-0.055) < 0.017 ng/mL (0.000-0.055) < 0.017 ng/mL (0.000-0.055) Glucose (Fingerstick) 135 mg/dL (70-99) White Blood Count 9.4 x10^3/uL (4.0-11.0) Red Blood Count 3.92 x10^6/uL (3.50-5.40) Hemoglobin 12.0 g/dL (12.0-15.5) Hematocrit 35.6 % (36.0-47.0) Mean Corpuscular Volume 91 fL (79-100) Mean Corpuscular Hemoglobin 31 pg (25-35) Mean Corpuscular Hemoglobin Concent 34 g/dL (31-37) Red Cell Distribution Width 13.3 % (11.5-14.5) Platelet Count 202 x10^3/uL (140-400) Neutrophils (%) (Auto) 42 % (31-73) Lymphocytes (%) (Auto) 43 % (24-48) Monocytes (%) (Auto) 10 % (0-9) Eosinophils (%) (Auto) 3 % (0-3) Basophils (%) (Auto) 1 % (0-3) Neutrophils # (Auto) 4.0 x10^3uL (1.8-7.7) Lymphocytes # (Auto) 4.0 x10^3/uL (1.0-4.8) Monocytes # (Auto) 1.0 x10^3/uL (0.0-1.1) Eosinophils # (Auto) 0.3 x10^3/uL (0.0-0.7) Basophils # (Auto) 0.1 x10^3/uL (0.0-0.2) Sodium Level 144 mmol/L (136-145) Potassium Level 4.8 mmol/L (3.5-5.1) Chloride Level 105 mmol/L (98-107) Carbon Dioxide Level 34 mmol/L (21-32) Anion Gap 5 (6-14) Blood Urea Nitrogen 23 mg/dL (7-20) Creatinine 1.0 mg/dL (0.6-1.0) Estimated GFR (Cockcroft-Gault) 54.7 BUN/Creatinine Ratio 23 (6-20) Glucose Level 131 mg/dL (70-99) Calcium Level 8.8 mg/dL (8.5-10.1) Total Bilirubin 0.3 mg/dL (0.2-1.0) Aspartate Amino Transf (AST/SGOT) 24 U/L (15-37) Alanine Aminotransferase (ALT/SGPT) 29 U/L (14-59) Alkaline Phosphatase 90 U/L (46-116) Total Protein 6.6 g/dL (6.4-8.2) Albumin 3.1 g/dL (3.4-5.0) Albumin/Globulin Ratio 0.9 (1.0-1.7) Triglycerides Level 193 mg/dL (0-150) Cholesterol Level 176 mg/dL (0-200) LDL Cholesterol, Calculated 98 mg/dL (0-100) VLDL Cholesterol, Calculated 39 mg/dL (0-40) Non-HDL Cholesterol Calculated 137 mg/dL (0-129) HDL Cholesterol 39 mg/dL (40-60) Cholesterol/HDL Ratio 4.5 Thyroid Stimulating Hormone (TSH) 1.059 uIU/mL (0.358-3.74) Test 04/02/18 08:25 Glucose (Fingerstick) 117 mg/dL (70-99) Laboratory Tests Test 04/01/18 17:30 04/01/18 20:20 04/01/18 20:57 04/02/18 02:30 Prothrombin Time 12.0 SEC (11.7-14.0) Prothromb Time International Ratio 0.9 (0.8-1.1) Troponin I Quantitative < 0.017 ng/mL (0.000-0.055) < 0.017 ng/mL (0.000-0.055) < 0.017 ng/mL (0.000-0.055) Glucose (Fingerstick) 135 mg/dL (70-99) White Blood Count 9.4 x10^3/uL (4.0-11.0) Red Blood Count 3.92 x10^6/uL (3.50-5.40) Hemoglobin 12.0 g/dL (12.0-15.5) Hematocrit 35.6 % (36.0-47.0) Mean Corpuscular Volume 91 fL (79-100) Mean Corpuscular Hemoglobin 31 pg (25-35) Mean Corpuscular Hemoglobin Concent 34 g/dL (31-37) Red Cell Distribution Width 13.3 % (11.5-14.5) Platelet Count 202 x10^3/uL (140-400) Neutrophils (%) (Auto) 42 % (31-73) Lymphocytes (%) (Auto) 43 % (24-48) Monocytes (%) (Auto) 10 % (0-9) Eosinophils (%) (Auto) 3 % (0-3) Basophils (%) (Auto) 1 % (0-3) Neutrophils # (Auto) 4.0 x10^3uL (1.8-7.7) Lymphocytes # (Auto) 4.0 x10^3/uL (1.0-4.8) Monocytes # (Auto) 1.0 x10^3/uL (0.0-1.1) Eosinophils # (Auto) 0.3 x10^3/uL (0.0-0.7) Basophils # (Auto) 0.1 x10^3/uL (0.0-0.2) Sodium Level 144 mmol/L (136-145) Potassium Level 4.8 mmol/L (3.5-5.1) Chloride Level 105 mmol/L (98-107) Carbon Dioxide Level 34 mmol/L (21-32) Anion Gap 5 (6-14) Blood Urea Nitrogen 23 mg/dL (7-20) Creatinine 1.0 mg/dL (0.6-1.0) Estimated GFR (Cockcroft-Gault) 54.7 BUN/Creatinine Ratio 23 (6-20) Glucose Level 131 mg/dL (70-99) Calcium Level 8.8 mg/dL (8.5-10.1) Total Bilirubin 0.3 mg/dL (0.2-1.0) Aspartate Amino Transf (AST/SGOT) 24 U/L (15-37) Alanine Aminotransferase (ALT/SGPT) 29 U/L (14-59) Alkaline Phosphatase 90 U/L (46-116) Total Protein 6.6 g/dL (6.4-8.2) Albumin 3.1 g/dL (3.4-5.0) Albumin/Globulin Ratio 0.9 (1.0-1.7) Triglycerides Level 193 mg/dL (0-150) Cholesterol Level 176 mg/dL (0-200) LDL Cholesterol, Calculated 98 mg/dL (0-100) VLDL Cholesterol, Calculated 39 mg/dL (0-40) Non-HDL Cholesterol Calculated 137 mg/dL (0-129) HDL Cholesterol 39 mg/dL (40-60) Cholesterol/HDL Ratio 4.5 Thyroid Stimulating Hormone (TSH) 1.059 uIU/mL (0.358-3.74) Test 04/02/18 08:25 Glucose (Fingerstick) 117 mg/dL (70-99) Medications Current Medications Aspirin (Gerry Aspirin) 325 mg 1X ONCE PO Last administered on 04/01/18at 18:16 ; Start 04/01/18 at 17:30; Stop 04/01/18 at 17:31; Status DC Nitroglycerin (Nitrostat) 0.4 mg PRN Q5MIN PRN SL CHEST PAIN; Start 04/01/18 at 17:30 Nitroglycerin (Nitro-Bid Oint) 1 inch Q6HRS TP Last administered on 04/01/18at 23:35; Start 04/01/18 at 18:00 Morphine Sulfate (Morphine Sulfate) 1 mg PRN Q10MIN PRN IV CHEST PAIN Last administered on 04/02/18at 03:29; Start 04/01/18 at 17:30 Acetaminophen (Tylenol) 650 mg PRN Q6HRS PRN PO MILD PAIN / TEMP; Start at 17:30 Ondansetron HCl (Zofran) 4 mg PRN Q6HRS PRN IV NAUSEA/VOMITING Last administered on 04/02/18at 01:56; Start 04/01/18 at 17:30 Prochlorperazine (Compazine) 25 mg PRN Q12HR PRN TN NAUSEA/VOMITING; Start at 17:30 Zolpidem Tartrate (Ambien) 5 mg PRN QHS PRN PO INSOMNIA; Start 04/01/18 at 17: 30 Enoxaparin Sodium (Lovenox 40mg Syringe) 40 mg Q12HR SQ ; Start 04/01/18 at 21: 00; Status Cancel Sodium Chloride (Normal Saline Flush) 3 ml QSHIFT PRN IV AFTER MEDS AND BLOOD DRAWS; Start 04/01/18 at 17:30 Sodium Chloride 1,000 ml @ 100 mls/hr Q10H IV Last administered on 04/02/18at 03:30; Start 04/01/18 at 17:21 Senna/Docusate Sodium (Senna Plus) 1 tab BID PO Last administered on 04/01/18at 21:36; Start 04/01/18 at 21:00 Docusate Sodium (Colace) 100 mg BID PO Last administered on 04/01/18at 21:35; Start 04/01/18 at 21:00 Magnesium Hydroxide (Milk Of Magnesia) 2,400 mg PRN Q12HR PRN PO CONSTIPATION; Start 04/01/18 at 17:30 Aspirin (Ecotrin) 81 mg DAILY PO ; Start 04/02/18 at 09:00 Carvedilol (Coreg) 6.25 mg BIDWMEALS PO Last administered on 04/01/18at 18:16; Start 04/01/18 at 18:00 Vitamin D (Vitamin D3) 2,000 unit DAILY PO ; Start 04/02/18 at 09:00 Citalopram Hydrobromide (CeleXA) 10 mg DAILY PO ; Start 04/02/18 at 09:00 Cyanocobalamin (Vitamin B-12) 5,000 mcg DAILY PO ; Start 04/02/18 at 09:00 Fluticasone Propionate (Flonase) 1 spray BID NS Last administered on 04/01/18at 21:34; Start 04/01/18 at 21:00 Ipratropium [place] (Atrovent) 0.2 mg Q8HRS IH ; Start 04/01/18 at 22:00; Status Cancel Trazodone HCl (Desyrel) 100 mg QHS PO Last administered on 04/01/18at 21:35; Start 04/01/18 at 21:00 Atorvastatin Calcium (Lipitor) 80 mg QHS PO Last administered on 04/01/18at 21: 36; Start 04/01/18 at 21:00 Calcium Carbonate/ Glycine (Oscal) 500 mg DAILY PO ; Start 04/02/18 at 09:00 Diclofenac Sodium (Voltaren) 75 mg BID PO Last administered on 04/01/18at 21:35 ; Start 04/01/18 at 21:00 Gabapentin (Neurontin) 600 mg TID PO Last administered on 04/01/18at 21:34; Start 04/01/18 at 21:00 Losartan Potassium (Cozaar) 100 mg DAILY PO ; Start 04/02/18 at 09:00 Meclizine HCl (Antivert) 25 mg PRN TID PRN PO DIZZINESS; Start 04/01/18 at 18: 00 Pantoprazole Sodium (Protonix) 40 mg DAILYAC PO ; Start 04/02/18 at 07:30 Albuterol/ Ipratropium (Duoneb) 3 ml RTQID NEB Last administered on 04/02/18at 07:28; Start 04/01/18 at 20:00 Enoxaparin Sodium (Lovenox 80mg Syringe) 80 mg Q12HR SQ Last administered on at 18:18; Start 04/01/18 at 19:01; Stop 04/02/18 at 07:18; Status DC Enalaprilat (Vasotec Inj) 1.25 mg PRN Q6HRS PRN IVP HYPERTENSION, SEE COMMENTS Last administered on 04/02/18at 03:30; Start 04/02/18 at 03:15 Enoxaparin Sodium (Lovenox 80mg Syringe) 70 mg Q12HR SQ ; Start 04/02/18 at 09: 00 Active Scripts Active Reported Diclofenac Sodium 75 Mg Tablet.dr 75 Mg PO BID Citalopram Hbr (Citalopram Hydrobromide) 10 Mg Tablet 10 Mg PO DAILY Losartan Potassium 100 Mg Tablet 100 Mg PO DAILY Ipratropium [place] 0.2 Mg/1 Ml Solution 0.2 Mg IH Q8HRS Meclizine Hcl 25 Mg Tablet 25 Mg PO QID PRN Spiriva (Tiotropium [place]) 18 Mcg Cap.w.dev 1 Cap IH DAILY Calcium (Calcium Carbonate) 600 Mg Tablet 600 Mg PO DAILY Carvedilol 6.25 Mg Tablet 1 Tab PO BID Vitamin D3 (Cholecalciferol (Vitamin D3)) 1,000 Unit Tablet 2,000 Unit PO DAILY Vitamin B-12 (Cyanocobalamin (Vitamin B-12)) 1,000 Mcg Tablet 5,000 Mcg PO DAILY Omeprazole 40 Mg Capsule.dr 40 Mg PO DAILY Atorvastatin Calcium 80 Mg Tablet 80 Mg PO HS Fluticasone Propionate Nasal [place] (Fluticasone Propionate) 16 Gm [place].susp 1 [place] NS BID Trazodone Hcl 100 Mg Tablet 1 Tab PO QHS Gabapentin 600 Mg Tablet 600 Mg PO TID Aspir 81 (Aspirin) 81 Mg Tablet.dr 1 Tab PO DAILY Vitals/I & O Vital Sign - Last 24 Hours 04/01/18 04/01/18 04/01/18 04/01/18 17:30 18:16 18:17 19:00 Temp 98.4 98.4 Pulse 71 71 72 Resp 16 B/P (MAP) 171/81 171/81 170/77 (108) Pulse Ox 94 O2 Delivery Room Air Room Air 04/01/18 04/01/18 04/01/18 04/01/18 19:25 19:47 22:32 23:35 Temp 97.9 97.9 Pulse 72 72 Resp 16 B/P (MAP) 140/62 (88) 140/62 Pulse Ox 95 95 O2 Delivery Room Air Room Air Room Air 04/02/18 04/02/18 04/02/18 04/02/18 01:56 02:51 03:29 03:30 Temp 98.3 98.3 Pulse 82 84 Resp 16 18 18 B/P (MAP) 173/72 (105) 173/72 Pulse Ox 97 93 94 O2 Delivery Nasal Cannula Room Air Room Air 04/02/18 04/02/18 04/02/18 04/02/18 04:07 04:35 06:15 07:28 Temp 98.2 98.2 Pulse 63 65 Resp 18 16 B/P (MAP) 100/41 (60) 99/43 (61) Pulse Ox 97 94 95 O2 Delivery Nasal Cannula Nasal Cannula Room Air O2 Flow Rate 2.0 2.0 04/02/18 09:52 Pulse 63 B/P (MAP) 111/51 (71) Intake and Output 04/01/18 04/01/18 04/02/18 15:00 23:00 07:00 Intake Total 120 ml Balance 120 ml ARA MATTHEW III DO Apr 02, 2018 10:25
--- NOTE | 2018-04-02 10:54 | CARD ---
MR#: [id number] Date of Study: 04/02/2018 Ordering Physician: TIANNA JACOB, Referring Physician: DANIELLE PAREKR, Tech: ELI Rodríguez APPROVED REPORT EXAM: Two-dimensional and M-mode echocardiogram with Doppler and color Doppler. Other Information Quality : AverageHR: 60bpm Technically limited study due to CABG. INDICATION Pericardial Effusion Chest Pain Surgery/Intervention CABD DIMENSIONS RVDd3.0 (2.9-3.5cm)Left Atrium(2D)3.2 (1.6-4.0cm) IVSd1.9 (0.7-1.1cm)Aortic Root(2D)2.7 (2.0-3.7cm) LVDd3.6 (3.9-5.9cm)LVOT Diameter1.9 (1.8-2.4cm) PWd1.6 (0.7-1.1cm)IVSs2.5 (0.8-1.2cm) LVDs2.5 (2.5-4.0cm)FS (%) 30.1 % PWs1.9 (0.8-1.2cm)SV31.9 ml LVEF(%)58.4 (>50%) Aortic Valve AoV Peak Jabier.168.7cm/sAoV VTI39.4cm AO Peak GR.11.4mmHgLVOT Peak Jabier.108.7cm/s LVOT VTI 27.92cmAO Mean GR.6mmHg SIERRA (VMAX)1.46ux0TWH (VTI)1.99cm2 Mitral Valve MV E Fhueftvp125.9cm/sMV E Peak Gr.67mmHg MV DECEL [id number] A Euuvawnh14.4cm/s MV ZGM08ziF/A Ratio1.2 MVA (PHT)3.13cm2 TDI E/Lateral E'20.7E/Medial E'18.7 Pulmonary Valve PV Peak Qhvlasbn255.9cm/sPV Peak Grad.5mmHg Tricuspid Valve TR P. Halggwng761ve/sRAP [id number] TR Peak Gr.[id number] Pulmonary Vein S1 Oxzzrils82.3cm/sD2 Rnjsnowv90.7cm/s LEFT VENTRICLE The left ventricle is normal size. There is moderate concentric left ventricular hypertrophy. The lef t ventricular systolic function is normal. The ejection fraction is estimated at 60-65%. There is nor mal LV segmental wall motion. The left ventricular diastolic function and filling is normal for age. RIGHT VENTRICLE The right ventricle is normal size. The right ventricular systolic function is normal. ATRIA The left atrium size is normal. The right atrium size is normal. The interatrial septum is intact wit h no evidence for an atrial septal defect or patent foramen ovale as noted on 2-D or Doppler imaging. AORTIC VALVE The aortic valve is mildly thickened but opens well. Doppler and Color Flow revealed no significant a ortic regurgitation. There is no significant aortic valvular stenosis. There is no aortic valvular ve getation. MITRAL VALVE The mitral valve is normal in structure. Mitral annular calcification is mild. There is no evidence o f mitral valve prolapse. There is no mitral valve stenosis. Doppler and Color-flow revealed mild mitr al regurgitation. TRICUSPID VALVE The tricuspid valve is not well visualized. Doppler and Color Flow revealed trace to mild tricuspid r egurgitation. There is no tricuspid valve prolapse or vegetation. There is no tricuspid valve stenosi s. PULMONIC VALVE The pulmonic valve is not well visualized. Doppler and Color Flow revealed mild to moderate pulmonic valvular regurgitation. There is no pulmonic valvular stenosis. GREAT VESSELS The aortic root is normal in size. The IVC is dilated and collapses <50% with inspiration. PERICARDIAL EFFUSION There is no pleural effusion. There is no evidence of significant pericardial effusion. Critical Notification Critical Value: No <Conclusion> The left ventricular systolic function is normal. The ejection fraction is estimated at 60-65%. There is normal LV segmental wall motion. Mild mitral regurgitation. Mild tricuspid regurgitation. There is no evidence of significant pericardial effusion. Signed by : Guido Matthew Electronically Approved : 04/02/2018 10:53:11
--- NOTE | 2018-04-02 11:08 | PDOC ---
PULMONARY PROGRESS NOTES Vitals Vital Signs Date Time Temp Pulse Resp B/P (MAP) Pulse Ox O2 Delivery O2 Flow Rate FiO2 04/02/18 10:20 63 111/51 04/02/18 07:28 95 Room Air 04/02/18 06:15 98.2 16 2.0 98.2 Lungs: Clear Labs Laboratory Tests Test 04/01/18 17:30 04/01/18 20:20 04/01/18 20:57 04/02/18 02:30 Prothrombin Time 12.0 SEC (11.7-14.0) Prothromb Time International Ratio 0.9 (0.8-1.1) Troponin I Quantitative < 0.017 ng/mL (0.000-0.055) < 0.017 ng/mL (0.000-0.055) < 0.017 ng/mL (0.000-0.055) Glucose (Fingerstick) 135 mg/dL (70-99) White Blood Count 9.4 x10^3/uL (4.0-11.0) Red Blood Count 3.92 x10^6/uL (3.50-5.40) Hemoglobin 12.0 g/dL (12.0-15.5) Hematocrit 35.6 % (36.0-47.0) Mean Corpuscular Volume 91 fL (79-100) Mean Corpuscular Hemoglobin 31 pg (25-35) Mean Corpuscular Hemoglobin Concent 34 g/dL (31-37) Red Cell Distribution Width 13.3 % (11.5-14.5) Platelet Count 202 x10^3/uL (140-400) Neutrophils (%) (Auto) 42 % (31-73) Lymphocytes (%) (Auto) 43 % (24-48) Monocytes (%) (Auto) 10 % (0-9) Eosinophils (%) (Auto) 3 % (0-3) Basophils (%) (Auto) 1 % (0-3) Neutrophils # (Auto) 4.0 x10^3uL (1.8-7.7) Lymphocytes # (Auto) 4.0 x10^3/uL (1.0-4.8) Monocytes # (Auto) 1.0 x10^3/uL (0.0-1.1) Eosinophils # (Auto) 0.3 x10^3/uL (0.0-0.7) Basophils # (Auto) 0.1 x10^3/uL (0.0-0.2) Sodium Level 144 mmol/L (136-145) Potassium Level 4.8 mmol/L (3.5-5.1) Chloride Level 105 mmol/L (98-107) Carbon Dioxide Level 34 mmol/L (21-32) Anion Gap 5 (6-14) Blood Urea Nitrogen 23 mg/dL (7-20) Creatinine 1.0 mg/dL (0.6-1.0) Estimated GFR (Cockcroft-Gault) 54.7 BUN/Creatinine Ratio 23 (6-20) Glucose Level 131 mg/dL (70-99) Calcium Level 8.8 mg/dL (8.5-10.1) Total Bilirubin 0.3 mg/dL (0.2-1.0) Aspartate Amino Transf (AST/SGOT) 24 U/L (15-37) Alanine Aminotransferase (ALT/SGPT) 29 U/L (14-59) Alkaline Phosphatase 90 U/L (46-116) Total Protein 6.6 g/dL (6.4-8.2) Albumin 3.1 g/dL (3.4-5.0) Albumin/Globulin Ratio 0.9 (1.0-1.7) Triglycerides Level 193 mg/dL (0-150) Cholesterol Level 176 mg/dL (0-200) LDL Cholesterol, Calculated 98 mg/dL (0-100) VLDL Cholesterol, Calculated 39 mg/dL (0-40) Non-HDL Cholesterol Calculated 137 mg/dL (0-129) HDL Cholesterol 39 mg/dL (40-60) Cholesterol/HDL Ratio 4.5 Thyroid Stimulating Hormone (TSH) 1.059 uIU/mL (0.358-3.74) Test 04/02/18 08:25 Glucose (Fingerstick) 117 mg/dL (70-99) Laboratory Tests Test 04/01/18 17:30 04/01/18 20:20 04/01/18 20:57 04/02/18 02:30 Prothrombin Time 12.0 SEC (11.7-14.0) Prothromb Time International Ratio 0.9 (0.8-1.1) Troponin I Quantitative < 0.017 ng/mL (0.000-0.055) < 0.017 ng/mL (0.000-0.055) < 0.017 ng/mL (0.000-0.055) Glucose (Fingerstick) 135 mg/dL (70-99) White Blood Count 9.4 x10^3/uL (4.0-11.0) Red Blood Count 3.92 x10^6/uL (3.50-5.40) Hemoglobin 12.0 g/dL (12.0-15.5) Hematocrit 35.6 % (36.0-47.0) Mean Corpuscular Volume 91 fL (79-100) Mean Corpuscular Hemoglobin 31 pg (25-35) Mean Corpuscular Hemoglobin Concent 34 g/dL (31-37) Red Cell Distribution Width 13.3 % (11.5-14.5) Platelet Count 202 x10^3/uL (140-400) Neutrophils (%) (Auto) 42 % (31-73) Lymphocytes (%) (Auto) 43 % (24-48) Monocytes (%) (Auto) 10 % (0-9) Eosinophils (%) (Auto) 3 % (0-3) Basophils (%) (Auto) 1 % (0-3) Neutrophils # (Auto) 4.0 x10^3uL (1.8-7.7) Lymphocytes # (Auto) 4.0 x10^3/uL (1.0-4.8) Monocytes # (Auto) 1.0 x10^3/uL (0.0-1.1) Eosinophils # (Auto) 0.3 x10^3/uL (0.0-0.7) Basophils # (Auto) 0.1 x10^3/uL (0.0-0.2) Sodium Level 144 mmol/L (136-145) Potassium Level 4.8 mmol/L (3.5-5.1) Chloride Level 105 mmol/L (98-107) Carbon Dioxide Level 34 mmol/L (21-32) Anion Gap 5 (6-14) Blood Urea Nitrogen 23 mg/dL (7-20) Creatinine 1.0 mg/dL (0.6-1.0) Estimated GFR (Cockcroft-Gault) 54.7 BUN/Creatinine Ratio 23 (6-20) Glucose Level 131 mg/dL (70-99) Calcium Level 8.8 mg/dL (8.5-10.1) Total Bilirubin 0.3 mg/dL (0.2-1.0) Aspartate Amino Transf (AST/SGOT) 24 U/L (15-37) Alanine Aminotransferase (ALT/SGPT) 29 U/L (14-59) Alkaline Phosphatase 90 U/L (46-116) Total Protein 6.6 g/dL (6.4-8.2) Albumin 3.1 g/dL (3.4-5.0) Albumin/Globulin Ratio 0.9 (1.0-1.7) Triglycerides Level 193 mg/dL (0-150) Cholesterol Level 176 mg/dL (0-200) LDL Cholesterol, Calculated 98 mg/dL (0-100) VLDL Cholesterol, Calculated 39 mg/dL (0-40) Non-HDL Cholesterol Calculated 137 mg/dL (0-129) HDL Cholesterol 39 mg/dL (40-60) Cholesterol/HDL Ratio 4.5 Thyroid Stimulating Hormone (TSH) 1.059 uIU/mL (0.358-3.74) Test 04/02/18 08:25 Glucose (Fingerstick) 117 mg/dL (70-99) Medications Active Scripts Medications Dose Route/Sig Max Daily Dose Days Date Category Diclofenac Sodium 75 Mg Tablet.dr 75 Mg PO BID 04/01/18 Reported Citalopram Hbr (Citalopram Hydrobromide) 10 Mg Tablet 10 Mg PO DAILY 04/01/18 Reported Losartan Potassium 100 Mg Tablet 100 Mg PO DAILY 04/01/18 Reported Ipratropium [place] 0.2 Mg/1 Ml Solution 0.2 Mg IH Q8HRS 04/01/18 Reported Meclizine Hcl 25 Mg Tablet 25 Mg PO QID PRN 04/01/18 Reported Spiriva (Tiotropium [place]) 18 Mcg Cap.w.dev 1 Cap IH DAILY 04/01/18 Reported Calcium (Calcium Carbonate) 600 Mg Tablet 600 Mg PO DAILY 04/01/18 Reported Carvedilol 6.25 Mg Tablet 1 Tab PO BID 08/13/17 Reported Vitamin D3 (Cholecalciferol (Vitamin D3)) 1,000 Unit Tablet 2,000 Unit PO DAILY 08/13/17 Reported Vitamin B-12 (Cyanocobalamin (Vitamin B-12)) 1,000 Mcg Tablet 5,000 Mcg PO DAILY 08/13/17 Reported Omeprazole 40 Mg Capsule. 40 Mg PO DAILY 08/13/17 Reported Atorvastatin Calcium 80 Mg Tablet 80 Mg PO HS 08/13/17 Reported Fluticasone Propionate Nasal [place] (Fluticasone Propionate) 16 Gm [place].susp 1 [place] NS BID 08/13/17 Reported Trazodone Hcl 100 Mg Tablet 1 Tab PO QHS 10/03/15 Reported Gabapentin 600 Mg Tablet 600 Mg PO TID 10/03/15 Reported Aspir 81 (Aspirin) 81 Mg Tablet.dr 1 Tab PO DAILY 10/03/15 Reported Impression . NOTED DICTATED POSSIBLE PE I REVIEWED THE V/Q SCAN NOT CONVINCED THAT IT IS HIGH PROBABILITY WILL CHECK CT ANGIO CLINICAL SUSPICION FOR PE IS LOW IF CT IS NEGATIVE OK TO D/C TODAY ARABELLA RAY MD Apr 02, 2018 11:08
[2018-04-02] MEDS ORDERED: CONTRAST GIVEN. MC PRN (11:30)
[2018-04-02] MEDS ORDERED: IOHEXOL 300 MG/ML 100ML VIAL. IV ONE (11:30)
--- NOTE | 2018-04-02 13:53 | RAD ---
Examination: CT angiography chest HISTORY: History of chest pain, high probability for pulmonary embolism or a VQ scan COMPARISON: None available Exposure: One or more of the following individualized dose reduction techniques were utilized for this examination: 1. Automated exposure control 2. Adjustment of the mA and/or kV according to patient size 3. Use of iterative reconstruction technique TECHNIQUE: Axial CT angiographic images were performed with IV contrast. Coronal and sagittal 3-D MIP reformats are performed FINDINGS: There is a 1 cm hypodense nodule identified in the right lobe of thyroid gland. The central airways are patent. Mild cardiomegaly. Coronary artery calcifications. Moderate aortic atherosclerosis. No evidence of filling defect identified in the main pulmonary arterial trunk and right and left main pulmonary arteries and the visualized lobar, segmental branches of the pulmonary arteries. Moderate emphysematous changes identified in the lungs. There is a 3 mm nodule identified in the right upper lobe of the lung. There is a 4 mm nodule identified in the right middle lobe of the lung. Mild left lung base airspace opacities likely atelectasis or infiltrate. The visualized liver, spleen, right adrenal grossly appears unremarkable. There is a nodule identified in the left adrenal gland measuring 1.8 cm and measuring 14 Hounsfield units. Moderate degenerative changes thoracic spine. IMPRESSION: 1. No evidence of pulmonary embolism. 2. Small nodules identified in the right upper lobe, right middle lobe of lung with the largest measuring 4 mm. Follow-up per Fleischner Society guidelines follow-up CT in 6 months. 3. Mild left lung base airspace opacity likely atelectasis or infiltrate. 4. Moderate emphysematous changes identified in the lungs. 5. A 1.8 cm nodule identified in the left adrenal gland likely lipid rich adrenal adenoma. 6. 1 cm hypodense nodule identified in the right lobe of the thyroid gland. Recommend follow-up ultrasound thyroid. Electronically signed by: Enrique Easley MD (04/02/2018 1:50 PM) [id number]
--- NOTE | 2018-04-02 16:49 | CONS ---
DATE OF CONSULTATION: 04/02/2018 ATTENDING PHYSICIAN: Devon Davila MD. CONSULTING PHYSICIAN: Arabella Landa MD. REASON FOR CONSULTATION: The patient seen in pulmonary consultation at the request of Dr. Davila for possible PE. HISTORY OF PRESENT ILLNESS: The patient is a 72-year-old that presented to the Emergency Department at [facility] for chest pain. She was not really short of breath. Upon further questioning, she mentioned that she was somewhat short of breath but was unsure. She has underlying COPD, normally wears oxygen at bedtime at 2 liters. She has been having chest pain on and off for quite some time. Last night, the pain was excruciating anteriorly, felt like pressure. She came in, was transferred to [facility]. The patient underwent VQ scan, which was read out as high probability. She had venous Dopplers, which were negative. She had a D-dimer, which was elevated. PAST MEDICAL HISTORY: COPD, coronary artery disease, previous myocardial infarction, hypertension, gastroesophageal reflux, esophageal stricture with previous dilatation, osteoarthritis, chronic renal insufficiency. No prior history of DVT or pulmonary embolism. PAST SURGICAL HISTORY: Appendectomy, cholecystectomy, tonsillectomy, hysterectomy, previous esophageal dilatation. FAMILY HISTORY: Hyperlipidemia. SOCIAL HISTORY: She continues to smoke, occasional use of alcohol. CURRENT MEDICATIONS: List was reviewed. REVIEW OF SYSTEMS: CONSTITUTIONAL: No fever or chills. EYES: No change in visual acuity. HENT: No nasal congestion, no sore throat. PULMONARY: As indicated above. CARDIOVASCULAR: As indicated above. GASTROINTESTINAL: No nausea, vomiting, or diarrhea. GENITOURINARY: No dysuria or frequency. MUSCULOSKELETAL: No localized muscle aches or joint pain. SKIN: No new skin lesions. NEUROLOGIC: No headaches, diplopia or blurred vision. ALLERGIES: LISTED TO AMPICILLIN, CYCLOBENZAPRINE, LATEX AND PRAVASTATIN. PHYSICAL EXAMINATION: GENERAL: The patient appeared to be of stated age. She was in no respiratory distress. VITAL SIGNS: Stable. O2 saturation was greater than 92%, currently on room air. HEENT: Eyes, the sclerae were nonicteric. NECK: Jugular venous distention was not elevated. No lymphadenopathy. CHEST: Full expansion. LUNGS: Adequate airway flow with no wheezes. CARDIOVASCULAR: Regular rate and rhythm with S1, S2, no S3. ABDOMEN: Soft, nontender, nondistended. EXTREMITIES: No clubbing, cyanosis or edema. NEUROLOGIC: The patient was awake, alert, following commands. A detailed neuro exam was not performed. LABORATORY DATA: Reviewed. White count was normal. INR was elevated at [facility]. BUN and creatinine 23 and 1.0 today, albumin was low. IMPRESSION: 1. Abnormal VQ scan read out as high probability, my clinical suspicion for pulmonary embolism is low. I reviewed the VQ scan. I did not concur with current reading, I reviewed it with Dr. Norris Segura who concurs that if at all the VQ scan is low probability. 2. Chronic obstructive pulmonary disease. 3. Chronic respiratory failure. 4. Protein malnutrition, present upon admission. 5. Atypical chest pain, suspect secondary to reflux. 6. Coronary artery disease with previous myocardial infarction. 7. Gastroesophageal reflux. PLAN: 1. We will complete workup with CT angiogram, venous Dopplers of the lower extremities were negative: The patient is okay to discharge home later today if the above is negative. 2. 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 3. Follow up with her primary care doctor, Dr. Conley. I do appreciate the privilege in sharing in the patient's care. ARABELLA LANDA MD DR: JACKIE/sam JOB#: [id number] / [id number] KHOA Aguillon MD
[2018-04-02] MEDS ORDERED: guaiFENesin DM 200MG/20MG 10 ML SYRUP PO PRN (17:30)
[2018-04-02] MEDS ORDERED: TEMAZEPAM 7.5 MG CAPSULE PO PRN (17:30)
[2018-04-02 18:24] LABS: ALBUMIN 2.6 g/dL (3.4-5.0); ALBUMIN/GLOBULIN RATIO 0.8 (1.0-1.7); CALCIUM 8.5 mg/dL (8.5-10.1); GFR 54.7; POTASSIUM 4.8 mmol/L (3.5-5.1); TOTAL BILIRUBIN 0.2 mg/dL (0.2-1.0)
[2018-04-02] MEDS: traZODone 100 MG TABLET. PO SCH (20:35)
[2018-04-02] MEDS: ATORVASTATIN CALCIUM 40 MG TABLET. PO SCH (20:35)
[2018-04-02] MEDS: ZOLPIDEM 5 MG TABLET. PO PRN (20:35)
[2018-04-02] MEDS: HYDROcodone/APAP 5/325MG 1 TAB TABLET PO PRN (20:36)
[2018-04-02] MEDS: ENOXAPARIN 40 MG/0.4 ML SYRINGE. SQ SCH (20:36)
[2018-04-03] VITALS (14 sets, daily range): BP systolic 115–208; BP diastolic 52–82
[2018-04-03] MEDS: MORPHINE SULFATE 2 MG/ML VIAL. IV PRN ×2 (04:16→22:52)
[2018-04-03] MEDS: NITROGLYCERIN OINT 1 GM PACKET. TP SCH ×3 (04:19→22:53)
[2018-04-03 05:32] LABS: BASO # 0.1 x10^3/uL (0.0-0.2); BASO % 1 % (0-3); EOS # 0.3 x10^3/uL (0.0-0.7); EOS % 3 % (0-3); HEMATOCRIT 32.5 % (36.0-47.0); HEMOGLOBIN 10.8 g/dL (12.0-15.5); LYMPH # 2.9 x10^3/uL (1.0-4.8); LYMPH % 33 % (24-48); MEAN CORPUSCULAR HEMOGLOBIN 30 pg (25-35); MEAN CORPUSCULAR HGB CONC 33 g/dL (31-37); MEAN CORPUSCULAR VOLUME 92 fL (79-100); MONO # 0.9 x10^3/uL (0.0-1.1); MONO % 10 % (0-9); NEUT # 4.6 x10^3uL (1.8-7.7); NEUT % 53 % (31-73); PLATELET COUNT 182 x10^3/uL (140-400); RED BLOOD COUNT 3.55 x10^6/uL (3.50-5.40); RED CELL DISTRIBUTION WIDTH 13.5 % (11.5-14.5); WHITE BLOOD COUNT 8.8 x10^3/uL (4.0-11.0)
[2018-04-03 05:51] LABS: CALCIUM 8.5 mg/dL (8.5-10.1); CREATININE 0.9 mg/dL (0.6-1.0); GFR 61.7; POTASSIUM 5.2 mmol/L (3.5-5.1)
--- NOTE | 2018-04-03 06:59 | PDOC ---
PULMONARY PROGRESS NOTES Subjective sob better, has occ cough, no cp, is on 02 at night Vitals Vital Signs Date Time Temp Pulse Resp B/P (MAP) Pulse Ox O2 Delivery O2 Flow Rate FiO2 04/03/18 04:46 20 Nasal Cannula 2.0 04/03/18 04:19 82 174/75 04/03/18 03:00 98.2 94 98.2 ROS: No Nausea, No Chest Pain General: Alert, Oriented X4 HEENT: Other (nc at perrl nose throat clear) Lungs: Crackles Cardiovascular: S1, S2 Abdomen: Soft, Non-tender Neuro Exam: Alert Extremities: No Edema Skin: Warm Labs Laboratory Tests Test 04/01/18 17:30 04/01/18 20:20 04/01/18 20:57 04/02/18 02:30 Prothrombin Time 12.0 SEC (11.7-14.0) Prothromb Time International Ratio 0.9 (0.8-1.1) Troponin I Quantitative < 0.017 ng/mL (0.000-0.055) < 0.017 ng/mL (0.000-0.055) < 0.017 ng/mL (0.000-0.055) Glucose (Fingerstick) 135 mg/dL (70-99) White Blood Count 9.4 x10^3/uL (4.0-11.0) Red Blood Count 3.92 x10^6/uL (3.50-5.40) Hemoglobin 12.0 g/dL (12.0-15.5) Hematocrit 35.6 % (36.0-47.0) Mean Corpuscular Volume 91 fL (79-100) Mean Corpuscular Hemoglobin 31 pg (25-35) Mean Corpuscular Hemoglobin Concent 34 g/dL (31-37) Red Cell Distribution Width 13.3 % (11.5-14.5) Platelet Count 202 x10^3/uL (140-400) Neutrophils (%) (Auto) 42 % (31-73) Lymphocytes (%) (Auto) 43 % (24-48) Monocytes (%) (Auto) 10 % (0-9) Eosinophils (%) (Auto) 3 % (0-3) Basophils (%) (Auto) 1 % (0-3) Neutrophils # (Auto) 4.0 x10^3uL (1.8-7.7) Lymphocytes # (Auto) 4.0 x10^3/uL (1.0-4.8) Monocytes # (Auto) 1.0 x10^3/uL (0.0-1.1) Eosinophils # (Auto) 0.3 x10^3/uL (0.0-0.7) Basophils # (Auto) 0.1 x10^3/uL (0.0-0.2) Sodium Level 144 mmol/L (136-145) Potassium Level 4.8 mmol/L (3.5-5.1) Chloride Level 105 mmol/L (98-107) Carbon Dioxide Level 34 mmol/L (21-32) Anion Gap 5 (6-14) Blood Urea Nitrogen 23 mg/dL (7-20) Creatinine 1.0 mg/dL (0.6-1.0) Estimated GFR (Cockcroft-Gault) 54.7 BUN/Creatinine Ratio 23 (6-20) Glucose Level 131 mg/dL (70-99) Calcium Level 8.8 mg/dL (8.5-10.1) Total Bilirubin 0.3 mg/dL (0.2-1.0) Aspartate Amino Transf (AST/SGOT) 24 U/L (15-37) Alanine Aminotransferase (ALT/SGPT) 29 U/L (14-59) Alkaline Phosphatase 90 U/L (46-116) Total Protein 6.6 g/dL (6.4-8.2) Albumin 3.1 g/dL (3.4-5.0) Albumin/Globulin Ratio 0.9 (1.0-1.7) Triglycerides Level 193 mg/dL (0-150) Cholesterol Level 176 mg/dL (0-200) LDL Cholesterol, Calculated 98 mg/dL (0-100) VLDL Cholesterol, Calculated 39 mg/dL (0-40) Non-HDL Cholesterol Calculated 137 mg/dL (0-129) HDL Cholesterol 39 mg/dL (40-60) Cholesterol/HDL Ratio 4.5 Thyroid Stimulating Hormone (TSH) 1.059 uIU/mL (0.358-3.74) Test 04/02/18 08:25 04/02/18 10:35 04/02/18 11:12 04/02/18 16:55 Glucose (Fingerstick) 117 mg/dL (70-99) 152 mg/dL (70-99) 126 mg/dL (70-99) Troponin I Quantitative 0.027 ng/mL (0.000-0.055) Test 04/02/18 17:45 04/02/18 20:43 04/03/18 05:00 Sodium Level 142 mmol/L (136-145) 143 mmol/L (136-145) Potassium Level 4.8 mmol/L (3.5-5.1) 5.2 mmol/L (3.5-5.1) Chloride Level 106 mmol/L (98-107) 107 mmol/L (98-107) Carbon Dioxide Level 32 mmol/L (21-32) 33 mmol/L (21-32) Anion Gap 4 (6-14) 3 (6-14) Blood Urea Nitrogen 21 mg/dL (7-20) 19 mg/dL (7-20) Creatinine 1.0 mg/dL (0.6-1.0) 0.9 mg/dL (0.6-1.0) Estimated GFR (Cockcroft-Gault) 54.7 61.7 BUN/Creatinine Ratio 21 (6-20) Glucose Level 141 mg/dL (70-99) 123 mg/dL (70-99) Calcium Level 8.5 mg/dL (8.5-10.1) 8.5 mg/dL (8.5-10.1) Total Bilirubin 0.2 mg/dL (0.2-1.0) Aspartate Amino Transf (AST/SGOT) 17 U/L (15-37) Alanine Aminotransferase (ALT/SGPT) 25 U/L (14-59) Alkaline Phosphatase 77 U/L (46-116) Total Protein 6.0 g/dL (6.4-8.2) Albumin 2.6 g/dL (3.4-5.0) Albumin/Globulin Ratio 0.8 (1.0-1.7) Glucose (Fingerstick) 136 mg/dL (70-99) White Blood Count 8.8 x10^3/uL (4.0-11.0) Red Blood Count 3.55 x10^6/uL (3.50-5.40) Hemoglobin 10.8 g/dL (12.0-15.5) Hematocrit 32.5 % (36.0-47.0) Mean Corpuscular Volume 92 fL (79-100) Mean Corpuscular Hemoglobin 30 pg (25-35) Mean Corpuscular Hemoglobin Concent 33 g/dL (31-37) Red Cell Distribution Width 13.5 % (11.5-14.5) Platelet Count 182 x10^3/uL (140-400) Neutrophils (%) (Auto) 53 % (31-73) Lymphocytes (%) (Auto) 33 % (24-48) Monocytes (%) (Auto) 10 % (0-9) Eosinophils (%) (Auto) 3 % (0-3) Basophils (%) (Auto) 1 % (0-3) Neutrophils # (Auto) 4.6 x10^3uL (1.8-7.7) Lymphocytes # (Auto) 2.9 x10^3/uL (1.0-4.8) Monocytes # (Auto) 0.9 x10^3/uL (0.0-1.1) Eosinophils # (Auto) 0.3 x10^3/uL (0.0-0.7) Basophils # (Auto) 0.1 x10^3/uL (0.0-0.2) Laboratory Tests Test 04/02/18 08:25 04/02/18 10:35 04/02/18 11:12 04/02/18 16:55 Glucose (Fingerstick) 117 mg/dL (70-99) 152 mg/dL (70-99) 126 mg/dL (70-99) Troponin I Quantitative 0.027 ng/mL (0.000-0.055) Test 04/02/18 17:45 04/02/18 20:43 04/03/18 05:00 Sodium Level 142 mmol/L (136-145) 143 mmol/L (136-145) Potassium Level 4.8 mmol/L (3.5-5.1) 5.2 mmol/L (3.5-5.1) Chloride Level 106 mmol/L (98-107) 107 mmol/L (98-107) Carbon Dioxide Level 32 mmol/L (21-32) 33 mmol/L (21-32) Anion Gap 4 (6-14) 3 (6-14) Blood Urea Nitrogen 21 mg/dL (7-20) 19 mg/dL (7-20) Creatinine 1.0 mg/dL (0.6-1.0) 0.9 mg/dL (0.6-1.0) Estimated GFR (Cockcroft-Gault) 54.7 61.7 BUN/Creatinine Ratio 21 (6-20) Glucose Level 141 mg/dL (70-99) 123 mg/dL (70-99) Calcium Level 8.5 mg/dL (8.5-10.1) 8.5 mg/dL (8.5-10.1) Total Bilirubin 0.2 mg/dL (0.2-1.0) Aspartate Amino Transf (AST/SGOT) 17 U/L (15-37) Alanine Aminotransferase (ALT/SGPT) 25 U/L (14-59) Alkaline Phosphatase 77 U/L (46-116) Total Protein 6.0 g/dL (6.4-8.2) Albumin 2.6 g/dL (3.4-5.0) Albumin/Globulin Ratio 0.8 (1.0-1.7) Glucose (Fingerstick) 136 mg/dL (70-99) White Blood Count 8.8 x10^3/uL (4.0-11.0) Red Blood Count 3.55 x10^6/uL (3.50-5.40) Hemoglobin 10.8 g/dL (12.0-15.5) Hematocrit 32.5 % (36.0-47.0) Mean Corpuscular Volume 92 fL (79-100) Mean Corpuscular Hemoglobin 30 pg (25-35) Mean Corpuscular Hemoglobin Concent 33 g/dL (31-37) Red Cell Distribution Width 13.5 % (11.5-14.5) Platelet Count 182 x10^3/uL (140-400) Neutrophils (%) (Auto) 53 % (31-73) Lymphocytes (%) (Auto) 33 % (24-48) Monocytes (%) (Auto) 10 % (0-9) Eosinophils (%) (Auto) 3 % (0-3) Basophils (%) (Auto) 1 % (0-3) Neutrophils # (Auto) 4.6 x10^3uL (1.8-7.7) Lymphocytes # (Auto) 2.9 x10^3/uL (1.0-4.8) Monocytes # (Auto) 0.9 x10^3/uL (0.0-1.1) Eosinophils # (Auto) 0.3 x10^3/uL (0.0-0.7) Basophils # (Auto) 0.1 x10^3/uL (0.0-0.2) Medications Active Scripts Medications Dose Route/Sig Max Daily Dose Days Date Category Diclofenac Sodium 75 Mg Tablet.dr 75 Mg PO BID 04/01/18 Reported Citalopram Hbr (Citalopram Hydrobromide) 10 Mg Tablet 10 Mg PO DAILY 04/01/18 Reported Losartan Potassium 100 Mg Tablet 100 Mg PO DAILY 04/01/18 Reported Ipratropium [place] 0.2 Mg/1 Ml Solution 0.2 Mg IH Q8HRS 04/01/18 Reported Meclizine Hcl 25 Mg Tablet 25 Mg PO QID PRN 04/01/18 Reported Spiriva (Tiotropium [place]) 18 Mcg Cap.w.dev 1 Cap IH DAILY 04/01/18 Reported Calcium (Calcium Carbonate) 600 Mg Tablet 600 Mg PO DAILY 04/01/18 Reported Carvedilol 6.25 Mg Tablet 1 Tab PO BID 08/13/17 Reported Vitamin D3 (Cholecalciferol (Vitamin D3)) 1,000 Unit Tablet 2,000 Unit PO DAILY 08/13/17 Reported Vitamin B-12 (Cyanocobalamin (Vitamin B-12)) 1,000 Mcg Tablet 5,000 Mcg PO DAILY 08/13/17 Reported Omeprazole 40 Mg Capsule.dr 40 Mg PO DAILY 08/13/17 Reported Atorvastatin Calcium 80 Mg Tablet 80 Mg PO HS 08/13/17 Reported Fluticasone Propionate Nasal [place] (Fluticasone Propionate) 16 Gm Chamber[place].susp 1 [place] NS BID 08/13/17 Reported Trazodone Hcl 100 Mg Tablet 1 Tab PO QHS 10/03/15 Reported Gabapentin 600 Mg Tablet 600 Mg PO TID 10/03/15 Reported Aspir 81 (Aspirin) 81 Mg Tablet.dr 1 Tab PO DAILY 10/03/15 Reported Comments 1. No evidence of pulmonary embolism. 2. Small nodules identified in the right upper lobe, right middle lobe of lung with the largest measuring 4 mm. Follow-up per Fleischner Society guidelines follow-up CT in 6 months. 3. Mild left lung base airspace opacity likely atelectasis or infiltrate. 4. Moderate emphysematous changes identified in the lungs. 5. A 1.8 cm nodule identified in the left adrenal gland likely lipid rich adrenal adenoma. 6. 1 cm hypodense nodule identified in the right lobe of the thyroid gland. Recommend follow-up ultrasound thyroid. Impression . IMPRESSION: 1. Abnormal VQ scan read out as high probability, cta no pe, has cp, cardiac cath today per cardiology 2. Chronic obstructive pulmonary disease. 3. Chronic respiratory failure. 4. Protein malnutrition, present upon admission. 5. Atypical chest pain, suspect secondary to reflux. 6. Coronary artery disease with previous myocardial infarction. 7. Gastroesophageal reflux. Plan . PLAN: 1. CT angiogram, venous Dopplers of the lower extremities were negative: lovenox changed to prophylaxis 2. 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 3. Follow up with her primary care doctor, Dr. Conley. 4. cardiac cath today 5. BD discussed w pt and rn PETRONA WHITTEN MD Apr 03, 2018 06:59
[2018-04-03] MEDS: IPRATRPIUM/ALBUTEROL 0.5/2.5MG 3 ML NEBU. NEB SCH ×4 (07:40→19:42)
[2018-04-03] MEDS ORDERED: IODIXANOL 320 MG/ML 100 ML VIAL. ONE (08:44)
[2018-04-03] MEDS ORDERED: LIDOCAINE 1% PF 30 ML VIAL. ONE (08:49)
[2018-04-03] MEDS ORDERED: fentaNYL PF VIAL 100 MCG/2 ML VIAL ONE (08:52)
[2018-04-03] MEDS ORDERED: MIDAZOLAM HCL/PF 5 MG/5 ML VIAL. ONE (08:52)
[2018-04-03] MEDS: CALCIUM CARBONATE 500 MG TABLET PO SCH (09:00)
[2018-04-03] MEDS: DICLOFENAC SODIUM 25 MG TABLET.DR PO SCH ×2 (09:00→20:04)
--- NOTE | 2018-04-03 09:14 | PDOC ---
MODERATE SEDATION ASSESSMENT RISKS/ALTERNATIVES Risks/Alternatives Risks and alternatives of this type of sedation and procedure discussed with: RISK/ALTERNATIVES: Patient H & P ON CHART H & P H & P on chart and reviewed for co-morbid conditions and appropriate labs. H&P ON CHART: Yes STATUS PREG STATUS ASSESSED: Yes MEDS/ALLERGIES REVIEWED Meds/Allergies Reviewed Medications and Allergies including time and route of recently administered narcotics and sedatives. MEDS/ALLERGIES REVIEWED: Yes ASA RATING ASA RATING: II AIRWAY ASSESSMENT Airway Assessment Airway patency, oral function limitations, presence of caps, crowns, dentures, partials, and ability to extend neck assessed. AIRWAY ASSESSMENT: Yes MALLAMPATI SCORE MALLAMPATI SCORE: II PRE-SEDATION ASSESSMENT PRE-SEDATION ASSESSMENT: Yes MASON AYERS MD Apr 03, 2018 09:14
[2018-04-03] MEDS ORDERED: IODIXANOL 320 MG/ML 100 ML VIAL. IART ONE (09:45)
[2018-04-03] MEDS ORDERED: MIDAZOLAM HCL/PF 5 MG/5 ML VIAL. IV ONE (09:45)
[2018-04-03] MEDS ORDERED: LIDOCAINE 1% PF 30 ML VIAL. INJ ONE (09:45)
[2018-04-03] MEDS ORDERED: fentaNYL PF VIAL 100 MCG/2 ML VIAL IV ONE (09:45)
--- NOTE | 2018-04-03 10:25 | PDOC ---
Provider Note Provider Note Brief cath report Normal LV systolic function Moderate LAD disease. Ostial borderline lesion in large RCA including a LCX vessel. Will review and consider possible Impella assisted revascularization. Discussed with the patient. Full report pending. MASON AYERS MD Apr 03, 2018 10:25
[2018-04-03] MEDS ORDERED: IV NORMAL SALINE 1000ML BAG 1,000 ML IV SCH (10:26)
[2018-04-03] MEDS ORDERED: 0.9 % SODIUM CHLORIDE 10 ML DISP.SYRIN. IV PRN (10:30)
[2018-04-03] MEDS ORDERED: NITROGLYCERIN SUBLINGUAL 0.4 MG BOTTLE OF 25. SL PRN (10:30)
[2018-04-03] MEDS: CARVEDILOL 6.25 MG TABLET. PO SCH ×2 (12:13→17:50)
[2018-04-03] MEDS: PANTOPRAZOLE 40 MG TABLET.DR. PO SCH (12:13)
[2018-04-03] MEDS: HYDROcodone/APAP 5/325MG 1 TAB TABLET PO PRN (12:14)
[2018-04-03] MEDS: LOSARTAN POTASSIUM 50 MG TABLET. PO SCH (12:15)
[2018-04-03] MEDS: ASPIRIN ENTERIC COATED 81 MG TABLET.DR. PO SCH (12:16)
[2018-04-03] MEDS: FLUTICASONE 50MCG/NASAL SPRAY 16GM BOTTLE. NS SCH ×2 (12:29→20:01)
--- NOTE | 2018-04-03 12:51 | PDOC ---
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 Pt sleepy Vitals Vitals Vital Signs Date Time Temp Pulse Resp B/P (MAP) Pulse Ox O2 Delivery O2 Flow Rate FiO2 04/03/18 12:15 72 145/58 04/03/18 12:14 18 88 Room Air 6.0 04/03/18 07:00 99.0 99.0 Physical Exam General: Cooperative, No acute distress Heart: Normal S1, Normal S2, No murmurs Lungs: Crackles Abdomen: Soft, No tenderness Extremities: No edema, Normal pulses Skin: No rashes Labs LABS Laboratory Tests Test 04/02/18 16:55 04/02/18 17:45 04/02/18 20:43 04/03/18 05:00 Glucose (Fingerstick) 126 mg/dL (70-99) 136 mg/dL (70-99) Sodium Level 142 mmol/L (136-145) 143 mmol/L (136-145) Potassium Level 4.8 mmol/L (3.5-5.1) 5.2 mmol/L (3.5-5.1) Chloride Level 106 mmol/L (98-107) 107 mmol/L (98-107) Carbon Dioxide Level 32 mmol/L (21-32) 33 mmol/L (21-32) Anion Gap 4 (6-14) 3 (6-14) Blood Urea Nitrogen 21 mg/dL (7-20) 19 mg/dL (7-20) Creatinine 1.0 mg/dL (0.6-1.0) 0.9 mg/dL (0.6-1.0) Estimated GFR (Cockcroft-Gault) 54.7 61.7 BUN/Creatinine Ratio 21 (6-20) Glucose Level 141 mg/dL (70-99) 123 mg/dL (70-99) Calcium Level 8.5 mg/dL (8.5-10.1) 8.5 mg/dL (8.5-10.1) Total Bilirubin 0.2 mg/dL (0.2-1.0) Aspartate Amino Transf (AST/SGOT) 17 U/L (15-37) Alanine Aminotransferase (ALT/SGPT) 25 U/L (14-59) Alkaline Phosphatase 77 U/L (46-116) Total Protein 6.0 g/dL (6.4-8.2) Albumin 2.6 g/dL (3.4-5.0) Albumin/Globulin Ratio 0.8 (1.0-1.7) White Blood Count 8.8 x10^3/uL (4.0-11.0) Red Blood Count 3.55 x10^6/uL (3.50-5.40) Hemoglobin 10.8 g/dL (12.0-15.5) Hematocrit 32.5 % (36.0-47.0) Mean Corpuscular Volume 92 fL (79-100) Mean Corpuscular Hemoglobin 30 pg (25-35) Mean Corpuscular Hemoglobin Concent 33 g/dL (31-37) Red Cell Distribution Width 13.5 % (11.5-14.5) Platelet Count 182 x10^3/uL (140-400) Neutrophils (%) (Auto) 53 % (31-73) Lymphocytes (%) (Auto) 33 % (24-48) Monocytes (%) (Auto) 10 % (0-9) Eosinophils (%) (Auto) 3 % (0-3) Basophils (%) (Auto) 1 % (0-3) Neutrophils # (Auto) 4.6 x10^3uL (1.8-7.7) Lymphocytes # (Auto) 2.9 x10^3/uL (1.0-4.8) Monocytes # (Auto) 0.9 x10^3/uL (0.0-1.1) Eosinophils # (Auto) 0.3 x10^3/uL (0.0-0.7) Basophils # (Auto) 0.1 x10^3/uL (0.0-0.2) Test 04/03/18 07:22 Glucose (Fingerstick) 117 mg/dL (70-99) Review of Systems Review of Systems CO pain CO fatigue Assessment and Plan Assessmemt and Plan Chest pain OH, 2 stents CAD HTN GERD Osteoarthritis Chronic renal insufficiency Appendectomy Cholecystectomy Tonsillectomy Hysterectomy <1 ppd smoker Plan: Cardiac monitoring Labs PT/OT Home meds Viability study tomorrow Cath Thursday pending viability study Appreciate subspecialist input Comment Review of Relevant I have reviewed the following items sarah (where applicable) has been applied. Labs Laboratory Tests Test 04/01/18 17:30 04/01/18 20:20 04/01/18 20:57 04/02/18 02:30 Prothrombin Time 12.0 SEC (11.7-14.0) Prothromb Time International Ratio 0.9 (0.8-1.1) Troponin I Quantitative < 0.017 ng/mL (0.000-0.055) < 0.017 ng/mL (0.000-0.055) < 0.017 ng/mL (0.000-0.055) Glucose (Fingerstick) 135 mg/dL (70-99) White Blood Count 9.4 x10^3/uL (4.0-11.0) Red Blood Count 3.92 x10^6/uL (3.50-5.40) Hemoglobin 12.0 g/dL (12.0-15.5) Hematocrit 35.6 % (36.0-47.0) Mean Corpuscular Volume 91 fL (79-100) Mean Corpuscular Hemoglobin 31 pg (25-35) Mean Corpuscular Hemoglobin Concent 34 g/dL (31-37) Red Cell Distribution Width 13.3 % (11.5-14.5) Platelet Count 202 x10^3/uL (140-400) Neutrophils (%) (Auto) 42 % (31-73) Lymphocytes (%) (Auto) 43 % (24-48) Monocytes (%) (Auto) 10 % (0-9) Eosinophils (%) (Auto) 3 % (0-3) Basophils (%) (Auto) 1 % (0-3) Neutrophils # (Auto) 4.0 x10^3uL (1.8-7.7) Lymphocytes # (Auto) 4.0 x10^3/uL (1.0-4.8) Monocytes # (Auto) 1.0 x10^3/uL (0.0-1.1) Eosinophils # (Auto) 0.3 x10^3/uL (0.0-0.7) Basophils # (Auto) 0.1 x10^3/uL (0.0-0.2) Sodium Level 144 mmol/L (136-145) Potassium Level 4.8 mmol/L (3.5-5.1) Chloride Level 105 mmol/L (98-107) Carbon Dioxide Level 34 mmol/L (21-32) Anion Gap 5 (6-14) Blood Urea Nitrogen 23 mg/dL (7-20) Creatinine 1.0 mg/dL (0.6-1.0) Estimated GFR (Cockcroft-Gault) 54.7 BUN/Creatinine Ratio 23 (6-20) Glucose Level 131 mg/dL (70-99) Calcium Level 8.8 mg/dL (8.5-10.1) Total Bilirubin 0.3 mg/dL (0.2-1.0) Aspartate Amino Transf (AST/SGOT) 24 U/L (15-37) Alanine Aminotransferase (ALT/SGPT) 29 U/L (14-59) Alkaline Phosphatase 90 U/L (46-116) Total Protein 6.6 g/dL (6.4-8.2) Albumin 3.1 g/dL (3.4-5.0) Albumin/Globulin Ratio 0.9 (1.0-1.7) Triglycerides Level 193 mg/dL (0-150) Cholesterol Level 176 mg/dL (0-200) LDL Cholesterol, Calculated 98 mg/dL (0-100) VLDL Cholesterol, Calculated 39 mg/dL (0-40) Non-HDL Cholesterol Calculated 137 mg/dL (0-129) HDL Cholesterol 39 mg/dL (40-60) Cholesterol/HDL Ratio 4.5 Thyroid Stimulating Hormone (TSH) 1.059 uIU/mL (0.358-3.74) Test 04/02/18 08:25 04/02/18 10:35 04/02/18 11:12 04/02/18 16:55 Glucose (Fingerstick) 117 mg/dL (70-99) 152 mg/dL (70-99) 126 mg/dL (70-99) Troponin I Quantitative 0.027 ng/mL (0.000-0.055) Test 04/02/18 17:45 04/02/18 20:43 04/03/18 05:00 04/03/18 07:22 Sodium Level 142 mmol/L (136-145) 143 mmol/L (136-145) Potassium Level 4.8 mmol/L (3.5-5.1) 5.2 mmol/L (3.5-5.1) Chloride Level 106 mmol/L (98-107) 107 mmol/L (98-107) Carbon Dioxide Level 32 mmol/L (21-32) 33 mmol/L (21-32) Anion Gap 4 (6-14) 3 (6-14) Blood Urea Nitrogen 21 mg/dL (7-20) 19 mg/dL (7-20) Creatinine 1.0 mg/dL (0.6-1.0) 0.9 mg/dL (0.6-1.0) Estimated GFR (Cockcroft-Gault) 54.7 61.7 BUN/Creatinine Ratio 21 (6-20) Glucose Level 141 mg/dL (70-99) 123 mg/dL (70-99) Calcium Level 8.5 mg/dL (8.5-10.1) 8.5 mg/dL (8.5-10.1) Total Bilirubin 0.2 mg/dL (0.2-1.0) Aspartate Amino Transf (AST/SGOT) 17 U/L (15-37) Alanine Aminotransferase (ALT/SGPT) 25 U/L (14-59) Alkaline Phosphatase 77 U/L (46-116) Total Protein 6.0 g/dL (6.4-8.2) Albumin 2.6 g/dL (3.4-5.0) Albumin/Globulin Ratio 0.8 (1.0-1.7) Glucose (Fingerstick) 136 mg/dL (70-99) 117 mg/dL (70-99) White Blood Count 8.8 x10^3/uL (4.0-11.0) Red Blood Count 3.55 x10^6/uL (3.50-5.40) Hemoglobin 10.8 g/dL (12.0-15.5) Hematocrit 32.5 % (36.0-47.0) Mean Corpuscular Volume 92 fL (79-100) Mean Corpuscular Hemoglobin 30 pg (25-35) Mean Corpuscular Hemoglobin Concent 33 g/dL (31-37) Red Cell Distribution Width 13.5 % (11.5-14.5) Platelet Count 182 x10^3/uL (140-400) Neutrophils (%) (Auto) 53 % (31-73) Lymphocytes (%) (Auto) 33 % (24-48) Monocytes (%) (Auto) 10 % (0-9) Eosinophils (%) (Auto) 3 % (0-3) Basophils (%) (Auto) 1 % (0-3) Neutrophils # (Auto) 4.6 x10^3uL (1.8-7.7) Lymphocytes # (Auto) 2.9 x10^3/uL (1.0-4.8) Monocytes # (Auto) 0.9 x10^3/uL (0.0-1.1) Eosinophils # (Auto) 0.3 x10^3/uL (0.0-0.7) Basophils # (Auto) 0.1 x10^3/uL (0.0-0.2) Laboratory Tests Test 04/02/18 16:55 04/02/18 17:45 04/02/18 20:43 04/03/18 05:00 Glucose (Fingerstick) 126 mg/dL (70-99) 136 mg/dL (70-99) Sodium Level 142 mmol/L (136-145) 143 mmol/L (136-145) Potassium Level 4.8 mmol/L (3.5-5.1) 5.2 mmol/L (3.5-5.1) Chloride Level 106 mmol/L (98-107) 107 mmol/L (98-107) Carbon Dioxide Level 32 mmol/L (21-32) 33 mmol/L (21-32) Anion Gap 4 (6-14) 3 (6-14) Blood Urea Nitrogen 21 mg/dL (7-20) 19 mg/dL (7-20) Creatinine 1.0 mg/dL (0.6-1.0) 0.9 mg/dL (0.6-1.0) Estimated GFR (Cockcroft-Gault) 54.7 61.7 BUN/Creatinine Ratio 21 (6-20) Glucose Level 141 mg/dL (70-99) 123 mg/dL (70-99) Calcium Level 8.5 mg/dL (8.5-10.1) 8.5 mg/dL (8.5-10.1) Total Bilirubin 0.2 mg/dL (0.2-1.0) Aspartate Amino Transf (AST/SGOT) 17 U/L (15-37) Alanine Aminotransferase (ALT/SGPT) 25 U/L (14-59) Alkaline Phosphatase 77 U/L (46-116) Total Protein 6.0 g/dL (6.4-8.2) Albumin 2.6 g/dL (3.4-5.0) Albumin/Globulin Ratio 0.8 (1.0-1.7) White Blood Count 8.8 x10^3/uL (4.0-11.0) Red Blood Count 3.55 x10^6/uL (3.50-5.40) Hemoglobin 10.8 g/dL (12.0-15.5) Hematocrit 32.5 % (36.0-47.0) Mean Corpuscular Volume 92 fL (79-100) Mean Corpuscular Hemoglobin 30 pg (25-35) Mean Corpuscular Hemoglobin Concent 33 g/dL (31-37) Red Cell Distribution Width 13.5 % (11.5-14.5) Platelet Count 182 x10^3/uL (140-400) Neutrophils (%) (Auto) 53 % (31-73) Lymphocytes (%) (Auto) 33 % (24-48) Monocytes (%) (Auto) 10 % (0-9) Eosinophils (%) (Auto) 3 % (0-3) Basophils (%) (Auto) 1 % (0-3) Neutrophils # (Auto) 4.6 x10^3uL (1.8-7.7) Lymphocytes # (Auto) 2.9 x10^3/uL (1.0-4.8) Monocytes # (Auto) 0.9 x10^3/uL (0.0-1.1) Eosinophils # (Auto) 0.3 x10^3/uL (0.0-0.7) Basophils # (Auto) 0.1 x10^3/uL (0.0-0.2) Test 04/03/18 07:22 Glucose (Fingerstick) 117 mg/dL (70-99) Medications Current Medications Aspirin (Gerry Aspirin) 325 mg 1X ONCE PO Last administered on 04/01/18at 18:16 ; Start 04/01/18 at 17:30; Stop 04/01/18 at 17:31; Status DC Nitroglycerin (Nitrostat) 0.4 mg PRN Q5MIN PRN SL CHEST PAIN; Start 04/01/18 at 17:30; Stop 04/03/18 at 10:31; Status DC Nitroglycerin (Nitro-Bid Oint) 1 inch Q6HRS TP Last administered on 04/03/18 04:19; Start 04/01/18 at 18:00 Morphine Sulfate (Morphine Sulfate) 1 mg PRN Q10MIN PRN IV CHEST PAIN Last administered on 04/03/18 04:16; Start 04/01/18 at 17:30 Acetaminophen (Tylenol) 650 mg PRN Q6HRS PRN PO MILD PAIN / TEMP; Start at 17:30 Ondansetron HCl (Zofran) 4 mg PRN Q6HRS PRN IV NAUSEA/VOMITING Last administered on 04/02/18at 01:56; Start 04/01/18 at 17:30 Prochlorperazine (Compazine) 25 mg PRN Q12HR PRN AL NAUSEA/VOMITING; Start at 17:30 Zolpidem Tartrate (Ambien) 5 mg PRN QHS PRN PO INSOMNIA, 1ST CHOICE Last administered on 04/02/18at 20:35; Start 04/01/18 at 17:30 Enoxaparin Sodium (Lovenox 40mg Syringe) 40 mg Q12HR SQ ; Start 04/01/18 at 21: 00; Status Cancel Sodium Chloride (Normal Saline Flush) 3 ml QSHIFT PRN IV AFTER MEDS AND BLOOD DRAWS; Start 04/01/18 at 17:30; Stop 04/03/18 at 10:32; Status DC Sodium Chloride 1,000 ml @ 100 mls/hr Q10H IV Last administered on 04/02/18at 20:39; Start 04/01/18 at 17:21 Senna/Docusate Sodium (Senna Plus) 1 tab BID PO Last administered on 04/02/18 20:39; Start 04/01/18 at 21:00 Docusate Sodium (Colace) 100 mg BID PO Last administered on 04/02/18at 20:34; Start 04/01/18 at 21:00 Magnesium Hydroxide (Milk Of Magnesia) 2,400 mg PRN Q12HR PRN PO CONSTIPATION; Start 04/01/18 at 17:30 Aspirin (Ecotrin) 81 mg DAILY PO Last administered on 04/03/18 12:16; Start at 09:00 Carvedilol (Coreg) 6.25 mg BIDWMEALS PO Last administered on 04/03/18 12:13; Start 04/01/18 at 18:00 Vitamin D (Vitamin D3) 2,000 unit DAILY PO Last administered on 04/02/18 10:22 ; Start 04/02/18 at 09:00 Citalopram Hydrobromide (CeleXA) 10 mg DAILY PO Last administered on 04/02/18 10:22; Start 04/02/18 at 09:00 Cyanocobalamin (Vitamin B-12) 5,000 mcg DAILY PO Last administered on 10:21; Start 04/02/18 at 09:00 Fluticasone Propionate (Flonase) 1 spray BID NS Last administered on 04/03/18 12:29; Start 04/01/18 at 21:00 Ipratropium Mcrae (Atrovent) 0.2 mg Q8HRS IH ; Start 04/01/18 at 22:00; Status Cancel Trazodone HCl (Desyrel) 100 mg QHS PO Last administered on 04/02/18 20:35; Start 04/01/18 at 21:00 Atorvastatin Calcium (Lipitor) 80 mg QHS PO Last administered on 04/02/18 20: 35; Start 04/01/18 at 21:00 Calcium Carbonate/ Glycine (Oscal) 500 mg DAILY PO Last administered on 10:18; Start 04/02/18 at 09:00 Diclofenac Sodium (Voltaren) 75 mg BID PO Last administered on 04/02/18 20:35 ; Start 04/01/18 at 21:00 Gabapentin (Neurontin) 600 mg TID PO Last administered on 04/02/18 20:35; Start 04/01/18 at 21:00 Losartan Potassium (Cozaar) 100 mg DAILY PO Last administered on 04/03/18 12: 15; Start 04/02/18 at 09:00 Meclizine HCl (Antivert) 25 mg PRN TID PRN PO DIZZINESS; Start 04/01/18 at 18: 00 Pantoprazole Sodium (Protonix) 40 mg DAILYAC PO Last administered on 9/15/18at 12:13; Start 04/02/18 at 07:30 Albuterol/ Ipratropium (Duoneb) 3 ml RTQID NEB Last administered on 04/03/18at 07:40; Start 04/01/18 at 20:00 Enoxaparin Sodium (Lovenox 80mg Syringe) 80 mg Q12HR SQ Last administered on at 18:18; Start 04/01/18 at 19:01; Stop 04/02/18 at 07:18; Status DC Enalaprilat (Vasotec Inj) 1.25 mg PRN Q6HRS PRN IVP HYPERTENSION, SEE COMMENTS Last administered on 04/02/18at 03:30; Start 04/02/18 at 03:15 Enoxaparin Sodium (Lovenox 80mg Syringe) 70 mg Q12HR SQ Last administered on at 10:23; Start 04/02/18 at 09:00; Stop 04/02/18 at 18:44; Status DC Iohexol (Omnipaque 300 Mg/ml) 60 ml 1X ONCE IV Last administered on 04/02/18at 11:52; Start 04/02/18 at 11:30; Stop 04/02/18 at 11:31; Status DC Info (CONTRAST GIVEN -- Rx MONITORING) 1 each PRN DAILY PRN MC SEE COMMENTS; Start 04/02/18 at 11:30; Stop 04/04/18 at 11:29 Guaifenesin (Robitussin Dm) 10 ml PRN Q6HRS PRN PO COUGH 1ST CHOICE; Start at 17:30 Acetaminophen/ Hydrocodone Bitart (Lortab 5/325) 1 tab PRN Q4HRS PRN PO MODERATE - SEVERE PAIN Last administered on 04/03/18at 12:14; Start 04/02/18 at 17:30 Temazepam (Restoril) 7.5 mg PRN QHS PRN PO INSOMNIA, 2ND CHOICE; Start at 17:30 Enoxaparin Sodium (Lovenox 40mg Syringe) 40 mg Q24H SQ Last administered on at 20:36; Start 04/02/18 at 21:00 Iodixanol (Visipaque 320) 100 ml STK-MED ONCE .ROUTE ; Start 04/03/18 at 08:44; Stop 04/03/18 at 08:45; Status DC Heparin Sodium/ Sodium Chloride 1,000 ml @ As Directed STK-MED ONCE .ROUTE ; Start 04/03/18 at 08:45; Stop 04/03/18 at 08:46; Status DC Lidocaine HCl (Xylocaine 1% Pf 30ml Vial) 30 ml STK-MED ONCE .ROUTE ; Start at 08:49; Stop 04/03/18 at 08:50; Status DC Fentanyl Citrate (Fentanyl 2ml Vial) 100 mcg STK-MED ONCE .ROUTE ; Start at 08:52; Stop 04/03/18 at 08:53; Status DC Midazolam HCl (Versed) 5 mg STK-MED ONCE .ROUTE ; Start 04/03/18 at 08:52; Stop 04/03/18 at 08:53; Status DC Heparin Sodium/ Sodium Chloride (HEPARIN for ARTERIAL LINE FLUSH) 1,000 unit 1X ONCE IART Last administered on 04/03/18at 10:10; Start 04/03/18 at 09:45; Stop 04/03/18 at 09:47; Status DC Heparin Sodium/ Sodium Chloride (HEPARIN for ARTERIAL LINE FLUSH) 1,000 unit 1X ONCE IART Last administered on 04/03/18at 10:10; Start 04/03/18 at 09:45; Stop 04/03/18 at 09:47; Status DC Midazolam HCl (Versed) 5 mg 1X ONCE IV Last administered on 04/03/18at 10:11; Start 04/03/18 at 09:45; Stop 04/03/18 at 09:47; Status DC Fentanyl Citrate (Fentanyl 2ml Vial) 100 mcg 1X ONCE IV Last administered on at 10:11; Start 04/03/18 at 09:45; Stop 04/03/18 at 09:47; Status DC Iodixanol (Visipaque 320) 100 ml 1X ONCE IART Last administered on 04/03/18at 10:10; Start 04/03/18 at 09:45; Stop 04/03/18 at 09:47; Status DC Lidocaine HCl (Xylocaine 1% Pf 30ml Vial) 30 ml 1X ONCE INJ Last administered on 04/03/18at 10:10; Start 04/03/18 at 09:45; Stop 04/03/18 at 09:47; Status DC Sodium Chloride (Normal Saline Flush) 3 ml QSHIFT PRN IV AFTER MEDS AND BLOOD DRAWS; Start 04/03/18 at 10:30 Sodium Chloride 1,000 ml @ 75 mls/hr [id number] IV ; Start 04/03/18 at 10:26; Stop 04/03/18 at 18:25 Nitroglycerin (Nitrostat) 0.4 mg PRN Q5MIN PRN SL CHEST PAIN Last administered on 04/03/18at 11:56; Start 04/03/18 at 10:30 Active Scripts Active Reported Diclofenac Sodium 75 Mg Tablet.dr 75 Mg PO BID Citalopram Hbr (Citalopram Hydrobromide) 10 Mg Tablet 10 Mg PO DAILY Losartan Potassium 100 Mg Tablet 100 Mg PO DAILY Ipratropium Mcrae 0.2 Mg/1 Ml Solution 0.2 Mg IH Q8HRS Meclizine Hcl 25 Mg Tablet 25 Mg PO QID PRN Spiriva (Tiotropium Mcrae) 18 Mcg Cap.w.dev 1 Cap IH DAILY Calcium (Calcium Carbonate) 600 Mg Tablet 600 Mg PO DAILY Carvedilol 6.25 Mg Tablet 1 Tab PO BID Vitamin D3 (Cholecalciferol (Vitamin D3)) 1,000 Unit Tablet 2,000 Unit PO DAILY Vitamin B-12 (Cyanocobalamin (Vitamin B-12)) 1,000 Mcg Tablet 5,000 Mcg PO DAILY Omeprazole 40 Mg Capsule.dr 40 Mg PO DAILY Atorvastatin Calcium 80 Mg Tablet 80 Mg PO HS Fluticasone Propionate Nasal Quincy (Fluticasone Propionate) 16 Gm Quincy.susp 1 Quincy NS BID Trazodone Hcl 100 Mg Tablet 1 Tab PO QHS Gabapentin 600 Mg Tablet 600 Mg PO TID Aspir 81 (Aspirin) 81 Mg Tablet.dr 1 Tab PO DAILY Vitals/I & O Vital Sign - Last 24 Hours 04/02/18 04/02/18 04/02/18 04/02/18 14:30 15:00 15:00 17:00 Temp 98.4 98.4 Pulse 79 Resp 18 14 B/P (MAP) 154/76 (102) Pulse Ox 95 95 O2 Delivery Room Air Room Air 04/02/18 04/02/18 04/02/18 04/02/18 17:52 18:36 19:00 19:03 Temp 98.9 98.9 Pulse 79 84 Resp 20 18 B/P (MAP) 154/76 145/37 (73) Pulse Ox 95 90 O2 Delivery Room Air Room Air Room Air O2 Flow Rate 2.0 04/02/18 04/02/18 04/02/18 04/02/18 19:05 20:36 21:36 22:59 Resp 18 18 B/P (MAP) 181/77 Pulse Ox 95 O2 Delivery Room Air Room Air Room Air 04/02/18 04/03/18 04/03/18 04/03/18 23:00 03:00 04:16 04:19 Temp 98.2 98.2 98.2 98.2 Pulse 90 82 82 Resp 20 20 B/P (MAP) 181/77 (111) 174/75 (108) 174/75 Pulse Ox 91 94 O2 Delivery Nasal Cannula Nasal Cannula Nasal Cannula O2 Flow Rate 2.0 2.0 2.0 04/03/18 04/03/18 04/03/18 04/03/18 04:46 07:00 07:30 07:41 Temp 99.0 99.0 Pulse 81 Resp 20 18 B/P (MAP) 140/70 (93) Pulse Ox 95 93 O2 Delivery Nasal Cannula Room Air Nasal Cannula O2 Flow Rate 2.0 2.0 6.0 2.0 04/03/18 04/03/18 04/03/18 04/03/18 10:07 10:11 11:56 12:13 Pulse 72 72 72 Resp 14 14 B/P (MAP) 145/58 145/58 Pulse Ox 88 88 O2 Delivery Nasal Cannula Nasal Cannula O2 Flow Rate 6.0 6.0 04/03/18 04/03/18 12:14 12:15 Pulse 72 Resp 18 B/P (MAP) 145/58 Pulse Ox 88 O2 Delivery Room Air O2 Flow Rate 6.0 Intake and Output 04/02/18 04/02/18 04/03/18 15:00 23:00 07:00 Intake Total 800 ml Output Total 250 ml 450 ml Balance -250 ml 350 ml ARA MATTHEW K III DO Apr 03, 2018 12:51
[2018-04-03] MEDS: GABAPENTIN 300 MG CAPSULE. PO SCH ×3 (14:00→20:05)
[2018-04-03] MEDS: CYANOCOBALAMIN (VITAMIN B-12) 1,000 MCG TABLET. PO SCH (15:18)
[2018-04-03] MEDS: CITALOPRAM 10 MG TABLET. PO SCH (15:19)
[2018-04-03] MEDS: DOCUSATE SODIUM 100 MG CAPSULE. PO SCH ×2 (15:19→20:05)
[2018-04-03] MEDS: CHOLECALCIFEROL (VITAMIN D3) 1,000 UNIT TABLET PO SCH (15:19)
[2018-04-03] MEDS: SENNOSIDES/DOCUSATE 8.6/50MG TABLET. PO SCH ×2 (15:20→20:05)
[2018-04-03] MEDS: ENOXAPARIN 40 MG/0.4 ML SYRINGE. SQ SCH (20:04)
[2018-04-03] MEDS: traZODone 100 MG TABLET. PO SCH (20:05)
[2018-04-03] MEDS: ZOLPIDEM 5 MG TABLET. PO PRN (20:05)
[2018-04-03] MEDS: ATORVASTATIN CALCIUM 40 MG TABLET. PO SCH (20:05)
[2018-04-03] MEDS: ONDANSETRON PF 4 MG/2 ML VIAL. IV PRN (22:52)
[2018-04-03] MEDS ORDERED: MORPHINE SULFATE 4 MG/ML VIAL. IV PRN (23:45)
[2018-04-03] MEDS ORDERED: HEPARIN for IV BOLUS 10,000 UNIT/10 ML VIAL. IV PRN (23:45)
[2018-04-03] MEDS: ALPRAZolam 0.25 MG TABLET PO PRN (23:52)
[2018-04-04] VITALS (7 sets, daily range): BP systolic 125–185; BP diastolic 62–71
[2018-04-04] MEDS: HEPARIN 25,000UTS/500ML PREMIX 500 ML IV PRN (00:03)
[2018-04-04] MEDS: ENALAPRILAT 1.25 MG/ML VIAL. IVP PRN (02:06)
[2018-04-04] MEDS: ANTI-COAG MONITOR BY PHARMACY. MC PRN ×2 (03:55→09:41)
[2018-04-04] MEDS: NITROGLYCERIN OINT 1 GM PACKET. TP SCH ×4 (06:05→17:32)
--- NOTE | 2018-04-04 06:42 | PDOC ---
PULMONARY PROGRESS NOTES Subjective sob better, has occ cough, had cp last night, is tired, is on 02 at night Vitals Vital Signs Date Time Temp Pulse Resp B/P (MAP) Pulse Ox O2 Delivery O2 Flow Rate FiO2 04/04/18 06:05 99 138/68 04/04/18 03:38 97.7 20 93 Nasal Cannula 3.0 97.7 ROS: No Nausea, No Chest Pain General: Alert, Oriented X4 HEENT: Other (nc at perrl nose throat clear) Lungs: Crackles Cardiovascular: S1, S2 Abdomen: Soft, Non-tender Neuro Exam: Alert Extremities: No Edema Skin: Warm Labs Laboratory Tests Test 04/02/18 08:25 04/02/18 10:35 04/02/18 11:12 04/02/18 16:55 Glucose (Fingerstick) 117 mg/dL (70-99) 152 mg/dL (70-99) 126 mg/dL (70-99) Troponin I Quantitative 0.027 ng/mL (0.000-0.055) Test 04/02/18 17:45 04/02/18 20:43 04/03/18 05:00 04/03/18 07:22 Sodium Level 142 mmol/L (136-145) 143 mmol/L (136-145) Potassium Level 4.8 mmol/L (3.5-5.1) 5.2 mmol/L (3.5-5.1) Chloride Level 106 mmol/L (98-107) 107 mmol/L (98-107) Carbon Dioxide Level 32 mmol/L (21-32) 33 mmol/L (21-32) Anion Gap 4 (6-14) 3 (6-14) Blood Urea Nitrogen 21 mg/dL (7-20) 19 mg/dL (7-20) Creatinine 1.0 mg/dL (0.6-1.0) 0.9 mg/dL (0.6-1.0) Estimated GFR (Cockcroft-Gault) 54.7 61.7 BUN/Creatinine Ratio 21 (6-20) Glucose Level 141 mg/dL (70-99) 123 mg/dL (70-99) Calcium Level 8.5 mg/dL (8.5-10.1) 8.5 mg/dL (8.5-10.1) Total Bilirubin 0.2 mg/dL (0.2-1.0) Aspartate Amino Transf (AST/SGOT) 17 U/L (15-37) Alanine Aminotransferase (ALT/SGPT) 25 U/L (14-59) Alkaline Phosphatase 77 U/L (46-116) Total Protein 6.0 g/dL (6.4-8.2) Albumin 2.6 g/dL (3.4-5.0) Albumin/Globulin Ratio 0.8 (1.0-1.7) Glucose (Fingerstick) 136 mg/dL (70-99) 117 mg/dL (70-99) White Blood Count 8.8 x10^3/uL (4.0-11.0) Red Blood Count 3.55 x10^6/uL (3.50-5.40) Hemoglobin 10.8 g/dL (12.0-15.5) Hematocrit 32.5 % (36.0-47.0) Mean Corpuscular Volume 92 fL (79-100) Mean Corpuscular Hemoglobin 30 pg (25-35) Mean Corpuscular Hemoglobin Concent 33 g/dL (31-37) Red Cell Distribution Width 13.5 % (11.5-14.5) Platelet Count 182 x10^3/uL (140-400) Neutrophils (%) (Auto) 53 % (31-73) Lymphocytes (%) (Auto) 33 % (24-48) Monocytes (%) (Auto) 10 % (0-9) Eosinophils (%) (Auto) 3 % (0-3) Basophils (%) (Auto) 1 % (0-3) Neutrophils # (Auto) 4.6 x10^3uL (1.8-7.7) Lymphocytes # (Auto) 2.9 x10^3/uL (1.0-4.8) Monocytes # (Auto) 0.9 x10^3/uL (0.0-1.1) Eosinophils # (Auto) 0.3 x10^3/uL (0.0-0.7) Basophils # (Auto) 0.1 x10^3/uL (0.0-0.2) Test 04/03/18 19:59 Glucose (Fingerstick) 128 mg/dL (70-99) Laboratory Tests Test 04/03/18 07:22 04/03/18 19:59 Glucose (Fingerstick) 117 mg/dL (70-99) 128 mg/dL (70-99) Medications Active Scripts Medications Dose Route/Sig Max Daily Dose Days Date Category Diclofenac Sodium 75 Mg Tablet.dr 75 Mg PO BID 04/01/18 Reported Citalopram Hbr (Citalopram Hydrobromide) 10 Mg Tablet 10 Mg PO DAILY 04/01/18 Reported Losartan Potassium 100 Mg Tablet 100 Mg PO DAILY 04/01/18 Reported Ipratropium [place] 0.2 Mg/1 Ml Solution 0.2 Mg IH Q8HRS 04/01/18 Reported Meclizine Hcl 25 Mg Tablet 25 Mg PO QID PRN 04/01/18 Reported Spiriva (Tiotropium [place]) 18 Mcg Cap.w.dev 1 Cap IH DAILY 04/01/18 Reported Calcium (Calcium Carbonate) 600 Mg Tablet 600 Mg PO DAILY 04/01/18 Reported Carvedilol 6.25 Mg Tablet 1 Tab PO BID 08/13/17 Reported Vitamin D3 (Cholecalciferol (Vitamin D3)) 1,000 Unit Tablet 2,000 Unit PO DAILY 08/13/17 Reported Vitamin B-12 (Cyanocobalamin (Vitamin B-12)) 1,000 Mcg Tablet 5,000 Mcg PO DAILY 08/13/17 Reported Omeprazole 40 Mg Capsule.dr 40 Mg PO DAILY 08/13/17 Reported Atorvastatin Calcium 80 Mg Tablet 80 Mg PO HS 08/13/17 Reported Fluticasone Propionate Nasal [place] (Fluticasone Propionate) 16 Gm [place].susp 1 [place] NS BID 08/13/17 Reported Trazodone Hcl 100 Mg Tablet 1 Tab PO QHS 10/03/15 Reported Gabapentin 600 Mg Tablet 600 Mg PO TID 10/03/15 Reported Aspir 81 (Aspirin) 81 Mg Tablet.dr 1 Tab PO DAILY 10/03/15 Reported Comments 1. No evidence of pulmonary embolism. 2. Small nodules identified in the right upper lobe, right middle lobe of lung with the largest measuring 4 mm. Follow-up per Fleischner Society guidelines follow-up CT in 6 months. 3. Mild left lung base airspace opacity likely atelectasis or infiltrate. 4. Moderate emphysematous changes identified in the lungs. 5. A 1.8 cm nodule identified in the left adrenal gland likely lipid rich adrenal adenoma. 6. 1 cm hypodense nodule identified in the right lobe of the thyroid gland. Recommend follow-up ultrasound thyroid. Impression . IMPRESSION: 1. Abnormal VQ scan read out as high probability, cta no pe, has cp, s/p cardiac cath 04/03 2. Chronic obstructive pulmonary disease. 3. Chronic respiratory failure. 4. Protein malnutrition, present upon admission. 5. Atypical chest pain, suspect secondary to reflux. 6. Coronary artery disease with previous myocardial infarction. 7. Gastroesophageal reflux. Plan . PLAN: 1. CT angiogram, venous Dopplers of the lower extremities were negative: lovenox for dvt prophylaxis 2. 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 3. Follow up with her primary care doctor, Dr. Conley. 4. BD 5. cardiac cath, Normal LV systolic function Moderate LAD disease. Ostial borderline lesion in large RCA including a LCX vessel. cardiology to review and consider possible Impella assisted revascularization. discussed w pt and rn PETRONA WHITTEN MD Apr 04, 2018 06:42
[2018-04-04 07:29] LABS: BASO # 0.1 x10^3/uL (0.0-0.2); BASO % 1 % (0-3); EOS # 0.1 x10^3/uL (0.0-0.7); EOS % 1 % (0-3); HEMATOCRIT 32.3 % (36.0-47.0); HEMOGLOBIN 10.8 g/dL (12.0-15.5); LYMPH # 1.6 x10^3/uL (1.0-4.8); LYMPH % 19 % (24-48); MEAN CORPUSCULAR HEMOGLOBIN 31 pg (25-35); MEAN CORPUSCULAR HGB CONC 33 g/dL (31-37); MEAN CORPUSCULAR VOLUME 92 fL (79-100); MONO # 0.8 x10^3/uL (0.0-1.1); MONO % 10 % (0-9); NEUT % 70 % (31-73); PLATELET COUNT 168 x10^3/uL (140-400); RED BLOOD COUNT 3.53 x10^6/uL (3.50-5.40); RED CELL DISTRIBUTION WIDTH 12.9 % (11.5-14.5); WHITE BLOOD COUNT 8.7 x10^3/uL (4.0-11.0)
[2018-04-04] MEDS: PANTOPRAZOLE 40 MG TABLET.DR. PO SCH (07:30)
[2018-04-04 07:46] LABS: CALCIUM 8.5 mg/dL (8.5-10.1); CREATININE 0.8 mg/dL (0.6-1.0); GFR 70.7; POTASSIUM 4.7 mmol/L (3.5-5.1)
[2018-04-04] MEDS: IPRATRPIUM/ALBUTEROL 0.5/2.5MG 3 ML NEBU. NEB SCH ×4 (07:51→20:00)
[2018-04-04] MEDS: CARVEDILOL 6.25 MG TABLET. PO SCH ×2 (08:00→17:32)
[2018-04-04] MEDS: GABAPENTIN 300 MG CAPSULE. PO SCH ×3 (09:00→21:00)
[2018-04-04] MEDS: CHOLECALCIFEROL (VITAMIN D3) 1,000 UNIT TABLET PO SCH (09:00)
[2018-04-04] MEDS: LOSARTAN POTASSIUM 50 MG TABLET. PO SCH (09:00)
[2018-04-04] MEDS: SENNOSIDES/DOCUSATE 8.6/50MG TABLET. PO SCH ×2 (09:00→21:00)
[2018-04-04] MEDS: CITALOPRAM 10 MG TABLET. PO SCH (09:00)
[2018-04-04] MEDS: ASPIRIN ENTERIC COATED 81 MG TABLET.DR. PO SCH (09:00)
[2018-04-04] MEDS: CYANOCOBALAMIN (VITAMIN B-12) 1,000 MCG TABLET. PO SCH (09:00)
[2018-04-04] MEDS ORDERED: REGADENOSON 0.4 MG/5 ML DISP.SYRIN. IV ONE (09:00)
[2018-04-04] MEDS: CALCIUM CARBONATE 500 MG TABLET PO SCH (09:00)
[2018-04-04] MEDS: DOCUSATE SODIUM 100 MG CAPSULE. PO SCH ×2 (09:00→21:00)
[2018-04-04] MEDS: DICLOFENAC SODIUM 25 MG TABLET.DR PO SCH ×2 (09:00→21:00)
[2018-04-04] MEDS: FLUTICASONE 50MCG/NASAL SPRAY 16GM BOTTLE. NS SCH ×2 (09:00→21:00)
[2018-04-04] MEDS ORDERED: ONDANSETRON PF 4 MG/2 ML VIAL. ONE (11:08)
[2018-04-04] MEDS: ONDANSETRON PF 4 MG/2 ML VIAL. IV PRN ×2 (11:12→19:49)
--- NOTE | 2018-04-04 11:13 | PDOC ---
PROGRESS NOTES Subjective Subjective Patient seen and examined Comfortable this morning. Objective Objective Vital Signs Date Time Temp Pulse Resp B/P (MAP) Pulse Ox O2 Delivery O2 Flow Rate FiO2 04/04/18 08:00 Room Air 04/04/18 07:54 96 2.0 04/04/18 07:00 98.6 81 16 129/62 (84) 98.6 Intake and Output 04/04/18 07:00 Intake Total 1100 ml Output Total 1425 ml Balance -325 ml Intake Oral 1100 ml Output Urine Total 1425 ml Physical Exam Abdomen: Normal bowel sounds Heart: Regular rate General: No acute distress Lungs: Clear to auscultation Assessment Assessment 1. chest pain. No pulmonary embolus as per the primary service as above. Catheterization yesterday showed a borderline off stool right coronary artery lesion. Episodes of epigastric and chest discomfort last night now resolved. Checking MPI test today to look for ischemia on scanning. Possible future revascularization. This was discussed with the patient and her family. 2. pulmonary embolus. Evaluated by the pulmonary service. Continue present treatmenmt. 3. Asthma/COPD 4. HTN 5. HLD continue statin therapy 6. GERD continue home meds Comment Review of Relevant I have reviewed the following items sarah (where applicable) has been applied. Labs Laboratory Tests Test 04/02/18 11:12 04/02/18 16:55 04/02/18 17:45 04/02/18 20:43 Glucose (Fingerstick) 152 mg/dL (70-99) 126 mg/dL (70-99) 136 mg/dL (70-99) Sodium Level 142 mmol/L (136-145) Potassium Level 4.8 mmol/L (3.5-5.1) Chloride Level 106 mmol/L (98-107) Carbon Dioxide Level 32 mmol/L (21-32) Anion Gap 4 (6-14) Blood Urea Nitrogen 21 mg/dL (7-20) Creatinine 1.0 mg/dL (0.6-1.0) Estimated GFR (Cockcroft-Gault) 54.7 BUN/Creatinine Ratio 21 (6-20) Glucose Level 141 mg/dL (70-99) Calcium Level 8.5 mg/dL (8.5-10.1) Total Bilirubin 0.2 mg/dL (0.2-1.0) Aspartate Amino Transf (AST/SGOT) 17 U/L (15-37) Alanine Aminotransferase (ALT/SGPT) 25 U/L (14-59) Alkaline Phosphatase 77 U/L (46-116) Total Protein 6.0 g/dL (6.4-8.2) Albumin 2.6 g/dL (3.4-5.0) Albumin/Globulin Ratio 0.8 (1.0-1.7) Test 04/03/18 05:00 04/03/18 07:22 04/03/18 19:59 04/04/18 07:15 White Blood Count 8.8 x10^3/uL (4.0-11.0) 8.7 x10^3/uL (4.0-11.0) Red Blood Count 3.55 x10^6/uL (3.50-5.40) 3.53 x10^6/uL (3.50-5.40) Hemoglobin 10.8 g/dL (12.0-15.5) 10.8 g/dL (12.0-15.5) Hematocrit 32.5 % (36.0-47.0) 32.3 % (36.0-47.0) Mean Corpuscular Volume 92 fL (79-100) 92 fL (79-100) Mean Corpuscular Hemoglobin 30 pg (25-35) 31 pg (25-35) Mean Corpuscular Hemoglobin Concent 33 g/dL (31-37) 33 g/dL (31-37) Red Cell Distribution Width 13.5 % (11.5-14.5) 12.9 % (11.5-14.5) Platelet Count 182 x10^3/uL (140-400) 168 x10^3/uL (140-400) Neutrophils (%) (Auto) 53 % (31-73) 70 % (31-73) Lymphocytes (%) (Auto) 33 % (24-48) 19 % (24-48) Monocytes (%) (Auto) 10 % (0-9) 10 % (0-9) Eosinophils (%) (Auto) 3 % (0-3) 1 % (0-3) Basophils (%) (Auto) 1 % (0-3) 1 % (0-3) Neutrophils # (Auto) 4.6 x10^3uL (1.8-7.7) 6.0 x10^3uL (1.8-7.7) Lymphocytes # (Auto) 2.9 x10^3/uL (1.0-4.8) 1.6 x10^3/uL (1.0-4.8) Monocytes # (Auto) 0.9 x10^3/uL (0.0-1.1) 0.8 x10^3/uL (0.0-1.1) Eosinophils # (Auto) 0.3 x10^3/uL (0.0-0.7) 0.1 x10^3/uL (0.0-0.7) Basophils # (Auto) 0.1 x10^3/uL (0.0-0.2) 0.1 x10^3/uL (0.0-0.2) Sodium Level 143 mmol/L (136-145) 138 mmol/L (136-145) Potassium Level 5.2 mmol/L (3.5-5.1) 4.7 mmol/L (3.5-5.1) Chloride Level 107 mmol/L (98-107) 103 mmol/L (98-107) Carbon Dioxide Level 33 mmol/L (21-32) 35 mmol/L (21-32) Anion Gap 3 (6-14) 0 (6-14) Blood Urea Nitrogen 19 mg/dL (7-20) 14 mg/dL (7-20) Creatinine 0.9 mg/dL (0.6-1.0) 0.8 mg/dL (0.6-1.0) Estimated GFR (Cockcroft-Gault) 61.7 70.7 Glucose Level 123 mg/dL (70-99) 131 mg/dL (70-99) Calcium Level 8.5 mg/dL (8.5-10.1) 8.5 mg/dL (8.5-10.1) Glucose (Fingerstick) 117 mg/dL (70-99) 128 mg/dL (70-99) Heparin Anti-Xa Act, Unfractionated 0.47 IU/mL (0.30-0.70) Magnesium Level 1.4 mg/dL (1.8-2.4) Laboratory Tests Test 04/03/18 19:59 04/04/18 07:15 Glucose (Fingerstick) 128 mg/dL (70-99) White Blood Count 8.7 x10^3/uL (4.0-11.0) Red Blood Count 3.53 x10^6/uL (3.50-5.40) Hemoglobin 10.8 g/dL (12.0-15.5) Hematocrit 32.3 % (36.0-47.0) Mean Corpuscular Volume 92 fL (79-100) Mean Corpuscular Hemoglobin 31 pg (25-35) Mean Corpuscular Hemoglobin Concent 33 g/dL (31-37) Red Cell Distribution Width 12.9 % (11.5-14.5) Platelet Count 168 x10^3/uL (140-400) Neutrophils (%) (Auto) 70 % (31-73) Lymphocytes (%) (Auto) 19 % (24-48) Monocytes (%) (Auto) 10 % (0-9) Eosinophils (%) (Auto) 1 % (0-3) Basophils (%) (Auto) 1 % (0-3) Neutrophils # (Auto) 6.0 x10^3uL (1.8-7.7) Lymphocytes # (Auto) 1.6 x10^3/uL (1.0-4.8) Monocytes # (Auto) 0.8 x10^3/uL (0.0-1.1) Eosinophils # (Auto) 0.1 x10^3/uL (0.0-0.7) Basophils # (Auto) 0.1 x10^3/uL (0.0-0.2) Heparin Anti-Xa Act, Unfractionated 0.47 IU/mL (0.30-0.70) Sodium Level 138 mmol/L (136-145) Potassium Level 4.7 mmol/L (3.5-5.1) Chloride Level 103 mmol/L (98-107) Carbon Dioxide Level 35 mmol/L (21-32) Anion Gap 0 (6-14) Blood Urea Nitrogen 14 mg/dL (7-20) Creatinine 0.8 mg/dL (0.6-1.0) Estimated GFR (Cockcroft-Gault) 70.7 Glucose Level 131 mg/dL (70-99) Calcium Level 8.5 mg/dL (8.5-10.1) Magnesium Level 1.4 mg/dL (1.8-2.4) Medications Current Medications Aspirin (Gerry Aspirin) 325 mg 1X ONCE PO Last administered on 04/01/18 18:16 ; Start 04/01/18 at 17:30; Stop 04/01/18 at 17:31; Status DC Nitroglycerin (Nitrostat) 0.4 mg PRN Q5MIN PRN SL CHEST PAIN; Start 04/01/18 at 17:30; Stop 04/03/18 at 10:31; Status DC Nitroglycerin (Nitro-Bid Oint) 1 inch Q6HRS TP Last administered on 04/04/18at 06:05; Start 04/01/18 at 18:00 Morphine Sulfate (Morphine Sulfate) 1 mg PRN Q10MIN PRN IV CHEST PAIN Last administered on 04/03/18at 22:52; Start 04/01/18 at 17:30 Acetaminophen (Tylenol) 650 mg PRN Q6HRS PRN PO MILD PAIN / TEMP; Start at 17:30 Ondansetron HCl (Zofran) 4 mg PRN Q6HRS PRN IV NAUSEA/VOMITING Last administered on 04/03/18at 22:52; Start 04/01/18 at 17:30 Prochlorperazine (Compazine) 25 mg PRN Q12HR PRN ND NAUSEA/VOMITING; Start at 17:30 Zolpidem Tartrate (Ambien) 5 mg PRN QHS PRN PO INSOMNIA, 1ST CHOICE Last administered on 04/03/18at 20:05; Start 04/01/18 at 17:30 Enoxaparin Sodium (Lovenox 40mg Syringe) 40 mg Q12HR SQ ; Start 04/01/18 at 21: 00; Status Cancel Sodium Chloride (Normal Saline Flush) 3 ml QSHIFT PRN IV AFTER MEDS AND BLOOD DRAWS; Start 04/01/18 at 17:30; Stop 04/03/18 at 10:32; Status DC Sodium Chloride 1,000 ml @ 100 mls/hr Q10H IV Last administered on 04/02/18at 20:39; Start 04/01/18 at 17:21; Stop 04/03/18 at 15:28; Status DC Senna/Docusate Sodium (Senna Plus) 1 tab BID PO Last administered on 04/03/18 20:05; Start 04/01/18 at 21:00 Docusate Sodium (Colace) 100 mg BID PO Last administered on 04/03/18 20:05; Start 04/01/18 at 21:00 Magnesium Hydroxide (Milk Of Magnesia) 2,400 mg PRN Q12HR PRN PO CONSTIPATION; Start 04/01/18 at 17:30 Aspirin (Ecotrin) 81 mg DAILY PO Last administered on 04/03/18 12:16; Start at 09:00 Carvedilol (Coreg) 6.25 mg BIDWMEALS PO Last administered on 04/03/18 17:50; Start 04/01/18 at 18:00 Vitamin D (Vitamin D3) 2,000 unit DAILY PO Last administered on 04/03/18 15:19 ; Start 04/02/18 at 09:00 Citalopram Hydrobromide (CeleXA) 10 mg DAILY PO Last administered on 04/03/18 15:19; Start 04/02/18 at 09:00 Cyanocobalamin (Vitamin B-12) 5,000 mcg DAILY PO Last administered on 15:18; Start 04/02/18 at 09:00 Fluticasone Propionate (Flonase) 1 spray BID NS Last administered on 04/03/18 20:01; Start 04/01/18 at 21:00 Ipratropium Barnum (Atrovent) 0.2 mg Q8HRS IH ; Start 04/01/18 at 22:00; Status Cancel Trazodone HCl (Desyrel) 100 mg QHS PO Last administered on 04/03/18 20:05; Start 04/01/18 at 21:00 Atorvastatin Calcium (Lipitor) 80 mg QHS PO Last administered on 04/03/18 20: 05; Start 04/01/18 at 21:00 Calcium Carbonate/ Glycine (Oscal) 500 mg DAILY PO Last administered on at 10:18; Start 04/02/18 at 09:00 Diclofenac Sodium (Voltaren) 75 mg BID PO Last administered on 04/03/18 20:04 ; Start 04/01/18 at 21:00 Gabapentin (Neurontin) 600 mg TID PO Last administered on 9/15/18at 20:05; Start 04/01/18 at 21:00 Losartan Potassium (Cozaar) 100 mg DAILY PO Last administered on 04/03/18at 12: 15; Start 04/02/18 at 09:00 Meclizine HCl (Antivert) 25 mg PRN TID PRN PO DIZZINESS; Start 04/01/18 at 18: 00 Pantoprazole Sodium (Protonix) 40 mg DAILYAC PO Last administered on 04/03/18at 12:13; Start 04/02/18 at 07:30 Albuterol/ Ipratropium (Duoneb) 3 ml RTQID NEB Last administered on 04/04/18at 07:51; Start 04/01/18 at 20:00 Enoxaparin Sodium (Lovenox 80mg Syringe) 80 mg Q12HR SQ Last administered on at 18:18; Start 04/01/18 at 19:01; Stop 04/02/18 at 07:18; Status DC Enalaprilat (Vasotec Inj) 1.25 mg PRN Q6HRS PRN IVP HYPERTENSION, SEE COMMENTS Last administered on 04/04/18at 02:06; Start 04/02/18 at 03:15 Enoxaparin Sodium (Lovenox 80mg Syringe) 70 mg Q12HR SQ Last administered on at 10:23; Start 04/02/18 at 09:00; Stop 04/02/18 at 18:44; Status DC Iohexol (Omnipaque 300 Mg/ml) 60 ml 1X ONCE IV Last administered on 04/02/18at 11:52; Start 04/02/18 at 11:30; Stop 04/02/18 at 11:31; Status DC Info (CONTRAST GIVEN -- Rx MONITORING) 1 each PRN DAILY PRN MC SEE COMMENTS; Start 04/02/18 at 11:30; Stop 04/04/18 at 11:29 Guaifenesin (Robitussin Dm) 10 ml PRN Q6HRS PRN PO COUGH 1ST CHOICE; Start at 17:30 Acetaminophen/ Hydrocodone Bitart (Lortab 5/325) 1 tab PRN Q4HRS PRN PO MODERATE - SEVERE PAIN Last administered on 04/03/18at 12:14; Start 04/02/18 at 17:30 Temazepam (Restoril) 7.5 mg PRN QHS PRN PO INSOMNIA, 2ND CHOICE; Start at 17:30 Enoxaparin Sodium (Lovenox 40mg Syringe) 40 mg Q24H SQ Last administered on at 20:04; Start 04/02/18 at 21:00; Stop 04/03/18 at 23:48; Status DC Iodixanol (Visipaque 320) 100 ml STK-MED ONCE .ROUTE ; Start 04/03/18 at 08:44; Stop 04/03/18 at 08:45; Status DC Heparin Sodium/ Sodium Chloride 1,000 ml @ As Directed STK-MED ONCE .ROUTE ; Start 04/03/18 at 08:45; Stop 04/03/18 at 08:46; Status DC Lidocaine HCl (Xylocaine 1% Pf 30ml Vial) 30 ml STK-MED ONCE .ROUTE ; Start at 08:49; Stop 04/03/18 at 08:50; Status DC Fentanyl Citrate (Fentanyl 2ml Vial) 100 mcg STK-MED ONCE .ROUTE ; Start at 08:52; Stop 04/03/18 at 08:53; Status DC Midazolam HCl (Versed) 5 mg STK-MED ONCE .ROUTE ; Start 04/03/18 at 08:52; Stop 04/03/18 at 08:53; Status DC Heparin Sodium/ Sodium Chloride (HEPARIN for ARTERIAL LINE FLUSH) 1,000 unit 1X ONCE IART Last administered on 04/03/18at 10:10; Start 04/03/18 at 09:45; Stop 04/03/18 at 09:47; Status DC Heparin Sodium/ Sodium Chloride (HEPARIN for ARTERIAL LINE FLUSH) 1,000 unit 1X ONCE IART Last administered on 04/03/18at 10:10; Start 04/03/18 at 09:45; Stop 04/03/18 at 09:47; Status DC Midazolam HCl (Versed) 5 mg 1X ONCE IV Last administered on 04/03/18at 10:11; Start 04/03/18 at 09:45; Stop 04/03/18 at 09:47; Status DC Fentanyl Citrate (Fentanyl 2ml Vial) 100 mcg 1X ONCE IV Last administered on at 10:11; Start 04/03/18 at 09:45; Stop 04/03/18 at 09:47; Status DC Iodixanol (Visipaque 320) 100 ml 1X ONCE IART Last administered on 04/03/18at 10:10; Start 04/03/18 at 09:45; Stop 04/03/18 at 09:47; Status DC Lidocaine HCl (Xylocaine 1% Pf 30ml Vial) 30 ml 1X ONCE INJ Last administered on 04/03/18at 10:10; Start 04/03/18 at 09:45; Stop 04/03/18 at 09:47; Status DC Sodium Chloride (Normal Saline Flush) 3 ml QSHIFT PRN IV AFTER MEDS AND BLOOD DRAWS; Start 04/03/18 at 10:30 Sodium Chloride 1,000 ml @ 75 mls/hr [id number] IV ; Start 04/03/18 at 10:26; Stop 04/03/18 at 16:32; Status DC Nitroglycerin (Nitrostat) 0.4 mg PRN Q5MIN PRN SL CHEST PAIN Last administered on 04/03/18at 11:56; Start 04/03/18 at 10:30 Morphine Sulfate (Morphine Sulfate) 4 mg PRN Q2HR PRN IV SEVERE PAIN; Start at 23:45 Morphine Sulfate (Morphine Sulfate) 2 mg PRN Q2HR PRN IV MODERATE PAIN; Start 04/03/18 at 23:45 Heparin Sodium/ Dextrose 500 ml @ 0 mls/hr CONT PRN IV SEE I/O RECORD Last administered on 04/04/18at 00:03; Start 04/03/18 at 23:45 Heparin Sodium (Porcine) (Heparin Sodium) 2,150 unit PRN Q6HRS PRN IV FOR UFH LEVEL LESS THAN 0.2 Last administered on 04/03/18at 23:53; Start 04/03/18 at 23: 45 Alprazolam (Xanax) 0.25 mg PRN Q6HRS PRN PO ANXIETY / AGITATION Last administered on 04/03/18at 23:52; Start 04/03/18 at 23:45 Info (Anti-Coagulation Monitoring By Pharmacy) 1 each PRN DAILY PRN MC SEE COMMENTS Last administered on 04/04/18at 09:41; Start 04/03/18 at 23:45 Regadenoson (Lexiscan) 0.4 mg 1X ONCE IV Last administered on 04/04/18at 09:00 ; Start 04/04/18 at 09:00; Stop 04/04/18 at 09:01; Status DC Active Scripts Active Reported Diclofenac Sodium 75 Mg Tablet. 75 Mg PO BID Citalopram Hbr (Citalopram Hydrobromide) 10 Mg Tablet 10 Mg PO DAILY Losartan Potassium 100 Mg Tablet 100 Mg PO DAILY Ipratropium Barnum 0.2 Mg/1 Ml Solution 0.2 Mg IH Q8HRS Meclizine Hcl 25 Mg Tablet 25 Mg PO QID PRN Spiriva (Tiotropium Barnum) 18 Mcg Cap.w.dev 1 Cap IH DAILY Calcium (Calcium Carbonate) 600 Mg Tablet 600 Mg PO DAILY Carvedilol 6.25 Mg Tablet 1 Tab PO BID Vitamin D3 (Cholecalciferol (Vitamin D3)) 1,000 Unit Tablet 2,000 Unit PO DAILY Vitamin B-12 (Cyanocobalamin (Vitamin B-12)) 1,000 Mcg Tablet 5,000 Mcg PO DAILY Omeprazole 40 Mg Capsule.dr 40 Mg PO DAILY Atorvastatin Calcium 80 Mg Tablet 80 Mg PO HS Fluticasone Propionate Nasal [place] (Fluticasone Propionate) 16 Gm [place].susp 1 [place] NS BID Trazodone Hcl 100 Mg Tablet 1 Tab PO QHS Gabapentin 600 Mg Tablet 600 Mg PO TID Aspir 81 (Aspirin) 81 Mg Tablet.dr 1 Tab PO DAILY Vitals/I & O Vital Sign - Last 24 Hours 04/03/18 04/03/18 04/03/18 04/03/18 11:15 11:30 11:45 11:56 Pulse 72 72 72 72 B/P (MAP) 120/64 (82) 120/64 (82) 122/56 (78) 145/58 Pulse Ox 92 92 92 O2 Delivery Nasal Cannula Nasal Cannula Nasal Cannula O2 Flow Rate 6.0 6.0 6.0 04/03/18 04/03/18 04/03/18 04/03/18 12:00 12:13 12:14 12:15 Pulse 72 72 72 Resp 18 B/P (MAP) 129/53 (78) 145/58 145/58 Pulse Ox 92 88 O2 Delivery Nasal Cannula Room Air O2 Flow Rate 6.0 6.0 04/03/18 04/03/18 04/03/18 04/03/18 12:30 13:00 13:14 15:00 Temp 98.8 98.8 Pulse 72 62 60 Resp 20 18 B/P (MAP) 121/52 (75) 115/57 (76) 145/60 (88) Pulse Ox 92 92 91 93 O2 Delivery Nasal Cannula Nasal Cannula Room Air Nasal Cannula O2 Flow Rate 6.0 6.0 6.0 2.0 04/03/18 04/03/18 04/03/18 04/03/18 17:50 19:04 19:25 19:42 Temp 98.5 98.5 Pulse 60 61 Resp 20 B/P (MAP) 145/60 127/67 (87) Pulse Ox 96 96 O2 Delivery Nasal Cannula Nasal Cannula Nasal Cannula O2 Flow Rate 2.0 2.0 2.0 04/03/18 04/03/18 04/03/18 04/03/18 22:52 22:53 22:58 23:05 Temp 98.2 98.2 Pulse 84 84 Resp 22 22 B/P (MAP) 208/82 208/82 (124) 165/72 (103) Pulse Ox 92 92 O2 Delivery Nasal Cannula Nasal Cannula O2 Flow Rate 2.0 2.0 04/03/18 04/04/18 04/04/18 04/04/18 23:22 02:05 02:06 03:38 Temp 97.7 97.7 Pulse 90 90 99 Resp 20 20 B/P (MAP) 185/67 (106) 185/67 138/68 (91) Pulse Ox 92 93 O2 Delivery Nasal Cannula Nasal Cannula O2 Flow Rate 2.0 3.0 04/04/18 04/04/18 04/04/18 04/04/18 06:05 07:00 07:54 08:00 Temp 98.6 98.6 Pulse 99 81 Resp 16 B/P (MAP) 138/68 129/62 (84) Pulse Ox 97 96 O2 Delivery Nasal Cannula Nasal Cannula Room Air O2 Flow Rate 3.0 2.0 Intake and Output 04/03/18 04/03/18 04/04/18 15:00 23:00 07:00 Intake Total 100 ml 500 ml 500 ml Output Total 300 ml 950 ml 175 ml Balance -200 ml -450 ml 325 ml MASON AYERS MD Apr 04, 2018 11:13
[2018-04-04] MEDS ORDERED: MAGNESIUM SULFATE 1GM 100 ML IV ONE (12:45)
--- NOTE | 2018-04-04 13:13 | RAD ---
MR#: [id number] Date of Study: 04/04/2018 Ordering Physician: MASON JUÁREZ, Referring Physician: REY MAX Tech: RT Katharine PriceR) (N) APPROVED REPORT Test Type: Pharmacological Stress Nurse/Tech: RT Dee (R) (N) Test Indications: c/p Cardiac History: htn, CAD, COPD, smoker, DM, obese Medications: See Electronic Medical Record Medical History: See Electronic Medical Record Resting Heart Rate: 72 bpm Resting Blood Pressure: 108/56mmHg Pretest Chest Pain: No chest pain Nurse/Tech Notes S1S2, lungs CTA Consent: The procedure was explained to the patient in lay terms. Informed consent was witnessed. Nick eout was entered into [employer]. History and Stress Test performed by RT Dee (R) (N) Pharm. Details Pharmacologic stress testing was performed using 0.4mg per 5ml of regadenoson given intravenously ove r 7-10 seconds. Stress Symptoms chest pressure about 4 minutes post lexiscan- scale of 8/10. this pressure did go down to 5/10 by end of recovery period. h/a and nausea at end of recovery period POST EXERCISE Reason for Termination: Infusion complete Max HR: 95 bpm Max Blood Pressure: 143/63mmHg Blood Pressure response to exercise: Normal blood pressure response during stress. Heart Rate response to exercise: wnl Chest Pain: Yes. see above note Arrhythmia: No. INTERPRETATION Stress EKG Conclusion: The resting EKG shows a sinus rhythm with nonspecific ST-T wave changes. The stress EKG shows no significant changes from baseline. No EKG evidence of stress-induced ischemia. Imaging Protocol IMAGE PROTOCOL: Rest Tc-99m/stress Tc-99m 1 day Rest: Stress: Viability: Radiopharm.Tc99m [id number] Sestamibi [id number] 38mCi Duration 15min. 15min. Img Date 04/04/2018 04/04/2018 Inj-Img Wjem19lux. 45min. Rest Admin Site:IV - Right AntecubitalAdministrator:RT Katharine PriceR)(N) Stress Admin Site: IV - Right AntecubitalAdministrator: William Garcia, RT (R)(N) STRESS DATA End Diast. Vol.81.0mlAv. Heart Rate72.0bpm End Syst. Vol.32.0mlCO Index BSA0.0L/min Myocardial Itll986.0gEject. Vveqvilg56.0% Stress Rates Pk. Fill Rate2.61EDV/secLVtime Pk. Fill 127.36msec Pk. Empty Rate3.71ESV/secLVtime Pk. Ifwwf670.19msec 07/22 Pk. Fill1.69EDV/sec Stress Scores Regional WT2.00Summed WT6.00 Regional WM0.00Summed WM23.00 LV Perfusion The stress scans show no significant defects. The rest scans show no significant defects. Nuclear imaging shows no reversible ischemia or infarct. Wall Motion Left ventricular systolic function shows an ejection fraction of 60% and slight distal inferior wall hypokinesis. LV Perf. Quant 17 Seg. SSS4.00 17 Seg. SRS0.00 17 Seg. SDS4.00 Stress Defect Extent (% LAD)18.10Rest Defect Extent (% LAD)0.00Rev. Defect Extent (% LAD)18.10 Stress Defect Extent (% LCX) 10.00Rest Defect Extent (% LCX)7.50Rev. Defect Extent (% LCX)0.00 Stress Defect Extent (% RCA)0.00Rest Defect Extent (% RCA)0.00Rev. Defect Extent (% RCA)0.00 Stress Defect Extent (% LALO)13.50Rest Defect Extent (% LALO)1.30Rev. Defect Extent (% LALO)11.70 Conclusion 1. No EKG evidence of stressed induced ischemia. 2. Nuclear imaging shows no reversible ischemia or infarct. 3. Left ventricular ejection fraction is 60% with slight distal inferior wall hypokinesis. 4. Moderately low risk Lexiscan nuclear stress test. Signed by : Mason Juárez MD Electronically Approved : 04/04/2018 13:12:01
[2018-04-04] MEDS ORDERED: MAGNESIUM SULFATE 2GM 50 ML IV ONE (13:15)
--- NOTE | 2018-04-04 13:24 | PDOC ---
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 Pt sleepy Viability study results pending Reviewed chart with family Vitals Vitals Vital Signs Date Time Temp Pulse Resp B/P (MAP) Pulse Ox O2 Delivery O2 Flow Rate FiO2 04/04/18 12:11 Nasal Cannula 2.0 04/04/18 11:59 98.4 67 16 125/65 (85) 93 98.4 Physical Exam General: No acute distress Heart: Regular rate Lungs: Crackles Abdomen: Normal bowel sounds Extremities: No edema, Normal pulses Skin: No rashes Labs LABS Laboratory Tests Test 04/03/18 19:59 04/04/18 07:15 Glucose (Fingerstick) 128 mg/dL (70-99) White Blood Count 8.7 x10^3/uL (4.0-11.0) Red Blood Count 3.53 x10^6/uL (3.50-5.40) Hemoglobin 10.8 g/dL (12.0-15.5) Hematocrit 32.3 % (36.0-47.0) Mean Corpuscular Volume 92 fL (79-100) Mean Corpuscular Hemoglobin 31 pg (25-35) Mean Corpuscular Hemoglobin Concent 33 g/dL (31-37) Red Cell Distribution Width 12.9 % (11.5-14.5) Platelet Count 168 x10^3/uL (140-400) Neutrophils (%) (Auto) 70 % (31-73) Lymphocytes (%) (Auto) 19 % (24-48) Monocytes (%) (Auto) 10 % (0-9) Eosinophils (%) (Auto) 1 % (0-3) Basophils (%) (Auto) 1 % (0-3) Neutrophils # (Auto) 6.0 x10^3uL (1.8-7.7) Lymphocytes # (Auto) 1.6 x10^3/uL (1.0-4.8) Monocytes # (Auto) 0.8 x10^3/uL (0.0-1.1) Eosinophils # (Auto) 0.1 x10^3/uL (0.0-0.7) Basophils # (Auto) 0.1 x10^3/uL (0.0-0.2) Heparin Anti-Xa Act, Unfractionated 0.47 IU/mL (0.30-0.70) Sodium Level 138 mmol/L (136-145) Potassium Level 4.7 mmol/L (3.5-5.1) Chloride Level 103 mmol/L (98-107) Carbon Dioxide Level 35 mmol/L (21-32) Anion Gap 0 (6-14) Blood Urea Nitrogen 14 mg/dL (7-20) Creatinine 0.8 mg/dL (0.6-1.0) Estimated GFR (Cockcroft-Gault) 70.7 Glucose Level 131 mg/dL (70-99) Calcium Level 8.5 mg/dL (8.5-10.1) Magnesium Level 1.4 mg/dL (1.8-2.4) Review of Systems Review of Systems co weakness co sleepiness Assessment and Plan Assessmemt and Plan Chest pain PA, 2 stents CAD HTN GERD Osteoarthritis Chronic renal insufficiency Appendectomy Cholecystectomy Tonsillectomy Hysterectomy <1 ppd smoker Plan Await viability study Re cath in am if viability study shows viable myocardium Labs school lunch monitor Home meds PTOT DW alejandrina at length Total time 31 minutes Comment Review of Relevant I have reviewed the following items sarah (where applicable) has been applied. Labs Laboratory Tests Test 04/02/18 16:55 04/02/18 17:45 04/02/18 20:43 04/03/18 05:00 Glucose (Fingerstick) 126 mg/dL (70-99) 136 mg/dL (70-99) Sodium Level 142 mmol/L (136-145) 143 mmol/L (136-145) Potassium Level 4.8 mmol/L (3.5-5.1) 5.2 mmol/L (3.5-5.1) Chloride Level 106 mmol/L (98-107) 107 mmol/L (98-107) Carbon Dioxide Level 32 mmol/L (21-32) 33 mmol/L (21-32) Anion Gap 4 (6-14) 3 (6-14) Blood Urea Nitrogen 21 mg/dL (7-20) 19 mg/dL (7-20) Creatinine 1.0 mg/dL (0.6-1.0) 0.9 mg/dL (0.6-1.0) Estimated GFR (Cockcroft-Gault) 54.7 61.7 BUN/Creatinine Ratio 21 (6-20) Glucose Level 141 mg/dL (70-99) 123 mg/dL (70-99) Calcium Level 8.5 mg/dL (8.5-10.1) 8.5 mg/dL (8.5-10.1) Total Bilirubin 0.2 mg/dL (0.2-1.0) Aspartate Amino Transf (AST/SGOT) 17 U/L (15-37) Alanine Aminotransferase (ALT/SGPT) 25 U/L (14-59) Alkaline Phosphatase 77 U/L (46-116) Total Protein 6.0 g/dL (6.4-8.2) Albumin 2.6 g/dL (3.4-5.0) Albumin/Globulin Ratio 0.8 (1.0-1.7) White Blood Count 8.8 x10^3/uL (4.0-11.0) Red Blood Count 3.55 x10^6/uL (3.50-5.40) Hemoglobin 10.8 g/dL (12.0-15.5) Hematocrit 32.5 % (36.0-47.0) Mean Corpuscular Volume 92 fL (79-100) Mean Corpuscular Hemoglobin 30 pg (25-35) Mean Corpuscular Hemoglobin Concent 33 g/dL (31-37) Red Cell Distribution Width 13.5 % (11.5-14.5) Platelet Count 182 x10^3/uL (140-400) Neutrophils (%) (Auto) 53 % (31-73) Lymphocytes (%) (Auto) 33 % (24-48) Monocytes (%) (Auto) 10 % (0-9) Eosinophils (%) (Auto) 3 % (0-3) Basophils (%) (Auto) 1 % (0-3) Neutrophils # (Auto) 4.6 x10^3uL (1.8-7.7) Lymphocytes # (Auto) 2.9 x10^3/uL (1.0-4.8) Monocytes # (Auto) 0.9 x10^3/uL (0.0-1.1) Eosinophils # (Auto) 0.3 x10^3/uL (0.0-0.7) Basophils # (Auto) 0.1 x10^3/uL (0.0-0.2) Test 04/03/18 07:22 04/03/18 19:59 04/04/18 07:15 Glucose (Fingerstick) 117 mg/dL (70-99) 128 mg/dL (70-99) White Blood Count 8.7 x10^3/uL (4.0-11.0) Red Blood Count 3.53 x10^6/uL (3.50-5.40) Hemoglobin 10.8 g/dL (12.0-15.5) Hematocrit 32.3 % (36.0-47.0) Mean Corpuscular Volume 92 fL (79-100) Mean Corpuscular Hemoglobin 31 pg (25-35) Mean Corpuscular Hemoglobin Concent 33 g/dL (31-37) Red Cell Distribution Width 12.9 % (11.5-14.5) Platelet Count 168 x10^3/uL (140-400) Neutrophils (%) (Auto) 70 % (31-73) Lymphocytes (%) (Auto) 19 % (24-48) Monocytes (%) (Auto) 10 % (0-9) Eosinophils (%) (Auto) 1 % (0-3) Basophils (%) (Auto) 1 % (0-3) Neutrophils # (Auto) 6.0 x10^3uL (1.8-7.7) Lymphocytes # (Auto) 1.6 x10^3/uL (1.0-4.8) Monocytes # (Auto) 0.8 x10^3/uL (0.0-1.1) Eosinophils # (Auto) 0.1 x10^3/uL (0.0-0.7) Basophils # (Auto) 0.1 x10^3/uL (0.0-0.2) Heparin Anti-Xa Act, Unfractionated 0.47 IU/mL (0.30-0.70) Sodium Level 138 mmol/L (136-145) Potassium Level 4.7 mmol/L (3.5-5.1) Chloride Level 103 mmol/L (98-107) Carbon Dioxide Level 35 mmol/L (21-32) Anion Gap 0 (6-14) Blood Urea Nitrogen 14 mg/dL (7-20) Creatinine 0.8 mg/dL (0.6-1.0) Estimated GFR (Cockcroft-Gault) 70.7 Glucose Level 131 mg/dL (70-99) Calcium Level 8.5 mg/dL (8.5-10.1) Magnesium Level 1.4 mg/dL (1.8-2.4) Laboratory Tests Test 04/03/18 19:59 04/04/18 07:15 Glucose (Fingerstick) 128 mg/dL (70-99) White Blood Count 8.7 x10^3/uL (4.0-11.0) Red Blood Count 3.53 x10^6/uL (3.50-5.40) Hemoglobin 10.8 g/dL (12.0-15.5) Hematocrit 32.3 % (36.0-47.0) Mean Corpuscular Volume 92 fL (79-100) Mean Corpuscular Hemoglobin 31 pg (25-35) Mean Corpuscular Hemoglobin Concent 33 g/dL (31-37) Red Cell Distribution Width 12.9 % (11.5-14.5) Platelet Count 168 x10^3/uL (140-400) Neutrophils (%) (Auto) 70 % (31-73) Lymphocytes (%) (Auto) 19 % (24-48) Monocytes (%) (Auto) 10 % (0-9) Eosinophils (%) (Auto) 1 % (0-3) Basophils (%) (Auto) 1 % (0-3) Neutrophils # (Auto) 6.0 x10^3uL (1.8-7.7) Lymphocytes # (Auto) 1.6 x10^3/uL (1.0-4.8) Monocytes # (Auto) 0.8 x10^3/uL (0.0-1.1) Eosinophils # (Auto) 0.1 x10^3/uL (0.0-0.7) Basophils # (Auto) 0.1 x10^3/uL (0.0-0.2) Heparin Anti-Xa Act, Unfractionated 0.47 IU/mL (0.30-0.70) Sodium Level 138 mmol/L (136-145) Potassium Level 4.7 mmol/L (3.5-5.1) Chloride Level 103 mmol/L (98-107) Carbon Dioxide Level 35 mmol/L (21-32) Anion Gap 0 (6-14) Blood Urea Nitrogen 14 mg/dL (7-20) Creatinine 0.8 mg/dL (0.6-1.0) Estimated GFR (Cockcroft-Gault) 70.7 Glucose Level 131 mg/dL (70-99) Calcium Level 8.5 mg/dL (8.5-10.1) Magnesium Level 1.4 mg/dL (1.8-2.4) Medications Current Medications Aspirin (Gerry Aspirin) 325 mg 1X ONCE PO Last administered on 04/01/18at 18:16 ; Start 04/01/18 at 17:30; Stop 04/01/18 at 17:31; Status DC Nitroglycerin (Nitrostat) 0.4 mg PRN Q5MIN PRN SL CHEST PAIN; Start 04/01/18 at 17:30; Stop 04/03/18 at 10:31; Status DC Nitroglycerin (Nitro-Bid Oint) 1 inch Q6HRS TP Last administered on 04/04/18at 06:05; Start 04/01/18 at 18:00 Morphine Sulfate (Morphine Sulfate) 1 mg PRN Q10MIN PRN IV CHEST PAIN Last administered on 04/03/18at 22:52; Start 04/01/18 at 17:30 Acetaminophen (Tylenol) 650 mg PRN Q6HRS PRN PO MILD PAIN / TEMP; Start at 17:30 Ondansetron HCl (Zofran) 4 mg PRN Q6HRS PRN IV NAUSEA/VOMITING Last administered on 04/04/18at 11:12; Start 04/01/18 at 17:30 Prochlorperazine (Compazine) 25 mg PRN Q12HR PRN LA NAUSEA/VOMITING; Start at 17:30 Zolpidem Tartrate (Ambien) 5 mg PRN QHS PRN PO INSOMNIA, 1ST CHOICE Last administered on 04/03/18at 20:05; Start 04/01/18 at 17:30 Enoxaparin Sodium (Lovenox 40mg Syringe) 40 mg Q12HR SQ ; Start 04/01/18 at 21: 00; Status Cancel Sodium Chloride (Normal Saline Flush) 3 ml QSHIFT PRN IV AFTER MEDS AND BLOOD DRAWS; Start 04/01/18 at 17:30; Stop 04/03/18 at 10:32; Status DC Sodium Chloride 1,000 ml @ 100 mls/hr Q10H IV Last administered on 04/02/18at 20:39; Start 04/01/18 at 17:21; Stop 04/03/18 at 15:28; Status DC Senna/Docusate Sodium (Senna Plus) 1 tab BID PO Last administered on 04/03/18 20:05; Start 04/01/18 at 21:00 Docusate Sodium (Colace) 100 mg BID PO Last administered on 04/03/18 20:05; Start 04/01/18 at 21:00 Magnesium Hydroxide (Milk Of Magnesia) 2,400 mg PRN Q12HR PRN PO CONSTIPATION; Start 04/01/18 at 17:30 Aspirin (Ecotrin) 81 mg DAILY PO Last administered on 04/03/18 12:16; Start at 09:00 Carvedilol (Coreg) 6.25 mg BIDWMEALS PO Last administered on 04/03/18at 17:50; Start 04/01/18 at 18:00 Vitamin D (Vitamin D3) 2,000 unit DAILY PO Last administered on 04/03/18 15:19 ; Start 04/02/18 at 09:00 Citalopram Hydrobromide (CeleXA) 10 mg DAILY PO Last administered on 04/03/18 15:19; Start 04/02/18 at 09:00 Cyanocobalamin (Vitamin B-12) 5,000 mcg DAILY PO Last administered on 15:18; Start 04/02/18 at 09:00 Fluticasone Propionate (Flonase) 1 spray BID NS Last administered on 04/03/18 20:01; Start 04/01/18 at 21:00 Ipratropium [place] (Atrovent) 0.2 mg Q8HRS IH ; Start 04/01/18 at 22:00; Status Cancel Trazodone HCl (Desyrel) 100 mg QHS PO Last administered on 04/03/18 20:05; Start 04/01/18 at 21:00 Atorvastatin Calcium (Lipitor) 80 mg QHS PO Last administered on 9/15/18at 20: 05; Start 04/01/18 at 21:00 Calcium Carbonate/ Glycine (Oscal) 500 mg DAILY PO Last administered on at 10:18; Start 04/02/18 at 09:00 Diclofenac Sodium (Voltaren) 75 mg BID PO Last administered on 04/03/18at 20:04 ; Start 04/01/18 at 21:00 Gabapentin (Neurontin) 600 mg TID PO Last administered on 04/03/18at 20:05; Start 04/01/18 at 21:00 Losartan Potassium (Cozaar) 100 mg DAILY PO Last administered on 04/03/18at 12: 15; Start 04/02/18 at 09:00 Meclizine HCl (Antivert) 25 mg PRN TID PRN PO DIZZINESS; Start 04/01/18 at 18: 00 Pantoprazole Sodium (Protonix) 40 mg DAILYAC PO Last administered on 04/03/18at 12:13; Start 04/02/18 at 07:30 Albuterol/ Ipratropium (Duoneb) 3 ml RTQID NEB Last administered on 04/04/18at 12:09; Start 04/01/18 at 20:00 Enoxaparin Sodium (Lovenox 80mg Syringe) 80 mg Q12HR SQ Last administered on at 18:18; Start 04/01/18 at 19:01; Stop 04/02/18 at 07:18; Status DC Enalaprilat (Vasotec Inj) 1.25 mg PRN Q6HRS PRN IVP HYPERTENSION, SEE COMMENTS Last administered on 04/04/18at 02:06; Start 04/02/18 at 03:15 Enoxaparin Sodium (Lovenox 80mg Syringe) 70 mg Q12HR SQ Last administered on at 10:23; Start 04/02/18 at 09:00; Stop 04/02/18 at 18:44; Status DC Iohexol (Omnipaque 300 Mg/ml) 60 ml 1X ONCE IV Last administered on 04/02/18at 11:52; Start 04/02/18 at 11:30; Stop 04/02/18 at 11:31; Status DC Info (CONTRAST GIVEN -- Rx MONITORING) 1 each PRN DAILY PRN MC SEE COMMENTS; Start 04/02/18 at 11:30; Stop 04/04/18 at 11:29; Status DC Guaifenesin (Robitussin Dm) 10 ml PRN Q6HRS PRN PO COUGH 1ST CHOICE; Start at 17:30 Acetaminophen/ Hydrocodone Bitart (Lortab 5/325) 1 tab PRN Q4HRS PRN PO MODERATE - SEVERE PAIN Last administered on 04/03/18at 12:14; Start 04/02/18 at 17:30 Temazepam (Restoril) 7.5 mg PRN QHS PRN PO INSOMNIA, 2ND CHOICE; Start at 17:30 Enoxaparin Sodium (Lovenox 40mg Syringe) 40 mg Q24H SQ Last administered on at 20:04; Start 04/02/18 at 21:00; Stop 04/03/18 at 23:48; Status DC Iodixanol (Visipaque 320) 100 ml STK-MED ONCE .ROUTE ; Start 04/03/18 at 08:44; Stop 04/03/18 at 08:45; Status DC Heparin Sodium/ Sodium Chloride 1,000 ml @ As Directed STK-MED ONCE .ROUTE ; Start 04/03/18 at 08:45; Stop 04/03/18 at 08:46; Status DC Lidocaine HCl (Xylocaine 1% Pf 30ml Vial) 30 ml STK-MED ONCE .ROUTE ; Start at 08:49; Stop 04/03/18 at 08:50; Status DC Fentanyl Citrate (Fentanyl 2ml Vial) 100 mcg STK-MED ONCE .ROUTE ; Start at 08:52; Stop 04/03/18 at 08:53; Status DC Midazolam HCl (Versed) 5 mg STK-MED ONCE .ROUTE ; Start 04/03/18 at 08:52; Stop 04/03/18 at 08:53; Status DC Heparin Sodium/ Sodium Chloride (HEPARIN for ARTERIAL LINE FLUSH) 1,000 unit 1X ONCE IART Last administered on 04/03/18at 10:10; Start 04/03/18 at 09:45; Stop 04/03/18 at 09:47; Status DC Heparin Sodium/ Sodium Chloride (HEPARIN for ARTERIAL LINE FLUSH) 1,000 unit 1X ONCE IART Last administered on 04/03/18at 10:10; Start 04/03/18 at 09:45; Stop 04/03/18 at 09:47; Status DC Midazolam HCl (Versed) 5 mg 1X ONCE IV Last administered on 04/03/18at 10:11; Start 04/03/18 at 09:45; Stop 04/03/18 at 09:47; Status DC Fentanyl Citrate (Fentanyl 2ml Vial) 100 mcg 1X ONCE IV Last administered on at 10:11; Start 04/03/18 at 09:45; Stop 04/03/18 at 09:47; Status DC Iodixanol (Visipaque 320) 100 ml 1X ONCE IART Last administered on 04/03/18at 10:10; Start 04/03/18 at 09:45; Stop 04/03/18 at 09:47; Status DC Lidocaine HCl (Xylocaine 1% Pf 30ml Vial) 30 ml 1X ONCE INJ Last administered on 04/03/18at 10:10; Start 04/03/18 at 09:45; Stop 04/03/18 at 09:47; Status DC Sodium Chloride (Normal Saline Flush) 3 ml QSHIFT PRN IV AFTER MEDS AND BLOOD DRAWS; Start 04/03/18 at 10:30 Sodium Chloride 1,000 ml @ 75 mls/hr [id number] IV ; Start 04/03/18 at 10:26; Stop 04/03/18 at 16:32; Status DC Nitroglycerin (Nitrostat) 0.4 mg PRN Q5MIN PRN SL CHEST PAIN Last administered on 04/03/18at 11:56; Start 04/03/18 at 10:30 Morphine Sulfate (Morphine Sulfate) 4 mg PRN Q2HR PRN IV SEVERE PAIN; Start at 23:45 Morphine Sulfate (Morphine Sulfate) 2 mg PRN Q2HR PRN IV MODERATE PAIN; Start 04/03/18 at 23:45 Heparin Sodium/ Dextrose 500 ml @ 0 mls/hr CONT PRN IV SEE I/O RECORD Last administered on 04/04/18at 00:03; Start 04/03/18 at 23:45 Heparin Sodium (Porcine) (Heparin Sodium) 2,150 unit PRN Q6HRS PRN IV FOR UFH LEVEL LESS THAN 0.2 Last administered on 04/03/18at 23:53; Start 04/03/18 at 23: 45 Alprazolam (Xanax) 0.25 mg PRN Q6HRS PRN PO ANXIETY / AGITATION Last administered on 04/03/18at 23:52; Start 04/03/18 at 23:45 Info (Anti-Coagulation Monitoring By Pharmacy) 1 each PRN DAILY PRN MC SEE COMMENTS Last administered on 04/04/18at 09:41; Start 04/03/18 at 23:45 Regadenoson (Lexiscan) 0.4 mg 1X ONCE IV Last administered on 04/04/18at 09:00 ; Start 04/04/18 at 09:00; Stop 04/04/18 at 09:01; Status DC Ondansetron HCl (Zofran) 4 mg STK-MED ONCE .ROUTE ; Start 04/04/18 at 11:08; Stop 04/04/18 at 11:09; Status DC Magnesium Sulfate/ Dextrose 100 ml @ 100 mls/hr 1X ONCE IV ; Start 04/04/18 at 12:45; Stop 04/04/18 at 13:44; Status Cancel Magnesium Sulfate 50 ml @ 25 mls/hr 1X ONCE IV Last administered on 04/04/18at 13:11; Start 04/04/18 at 13:15; Stop 04/04/18 at 15:14 Active Scripts Active Reported Diclofenac Sodium 75 Mg Tablet.dr 75 Mg PO BID Citalopram Hbr (Citalopram Hydrobromide) 10 Mg Tablet 10 Mg PO DAILY Losartan Potassium 100 Mg Tablet 100 Mg PO DAILY Ipratropium [place] 0.2 Mg/1 Ml Solution 0.2 Mg IH Q8HRS Meclizine Hcl 25 Mg Tablet 25 Mg PO QID PRN Spiriva (Tiotropium [place]) 18 Mcg Cap.w.dev 1 Cap IH DAILY Calcium (Calcium Carbonate) 600 Mg Tablet 600 Mg PO DAILY Carvedilol 6.25 Mg Tablet 1 Tab PO BID Vitamin D3 (Cholecalciferol (Vitamin D3)) 1,000 Unit Tablet 2,000 Unit PO DAILY Vitamin B-12 (Cyanocobalamin (Vitamin B-12)) 1,000 Mcg Tablet 5,000 Mcg PO DAILY Omeprazole 40 Mg Capsule.dr 40 Mg PO DAILY Atorvastatin Calcium 80 Mg Tablet 80 Mg PO HS Fluticasone Propionate Nasal [place] (Fluticasone Propionate) 16 Gm [place].susp 1 [place] NS BID Trazodone Hcl 100 Mg Tablet 1 Tab PO QHS Gabapentin 600 Mg Tablet 600 Mg PO TID Aspir 81 (Aspirin) 81 Mg Tablet. 1 Tab PO DAILY Vitals/I & O Vital Sign - Last 24 Hours 04/03/18 04/03/18 04/03/18 04/03/18 15:00 17:50 19:04 19:25 Temp 98.8 98.5 98.8 98.5 Pulse 60 60 61 Resp 18 20 B/P (MAP) 145/60 (88) 145/60 127/67 (87) Pulse Ox 93 96 O2 Delivery Nasal Cannula Nasal Cannula Nasal Cannula O2 Flow Rate 2.0 2.0 2.0 04/03/18 04/03/18 04/03/18 04/03/18 19:42 22:52 22:53 22:58 Temp 98.2 98.2 Pulse 84 84 Resp 22 22 B/P (MAP) 208/82 208/82 (124) Pulse Ox 96 92 92 O2 Delivery Nasal Cannula Nasal Cannula Nasal Cannula O2 Flow Rate 2.0 2.0 2.0 04/03/18 04/03/18 04/04/18 04/04/18 23:05 23:22 02:05 02:06 Pulse 90 90 Resp 20 B/P (MAP) 165/72 (103) 185/67 (106) 185/67 Pulse Ox 92 O2 Delivery Nasal Cannula O2 Flow Rate 2.0 04/04/18 04/04/18 04/04/18 04/04/18 03:38 06:05 07:00 07:54 Temp 97.7 98.6 97.7 98.6 Pulse 99 99 81 Resp 20 16 B/P (MAP) 138/68 (91) 138/68 129/62 (84) Pulse Ox 93 97 96 O2 Delivery Nasal Cannula Nasal Cannula Nasal Cannula O2 Flow Rate 3.0 3.0 2.0 04/04/18 04/04/18 04/04/18 08:00 11:59 12:11 Temp 98.4 98.4 Pulse 67 Resp 16 B/P (MAP) 125/65 (85) Pulse Ox 93 O2 Delivery Room Air Nasal Cannula Nasal Cannula O2 Flow Rate 3.0 2.0 Intake and Output 04/03/18 04/03/18 04/04/18 15:00 23:00 07:00 Intake Total 100 ml 500 ml 500 ml Output Total 300 ml 950 ml 175 ml Balance -200 ml -450 ml 325 ml ARA MATTHEW III DO Apr 04, 2018 13:24
[2018-04-04] MEDS: HYDROcodone/APAP 5/325MG 1 TAB TABLET PO PRN (14:46)
[2018-04-04] MEDS: MORPHINE SULFATE 2 MG/ML VIAL. IV PRN ×3 (16:01→21:00)
[2018-04-04] MEDS: traZODone 100 MG TABLET. PO SCH (21:00)
[2018-04-04] MEDS: ATORVASTATIN CALCIUM 40 MG TABLET. PO SCH (21:00)
[2018-04-05] VITALS (16 sets, daily range): BP systolic 150–201; BP diastolic 64–117
[2018-04-05] MEDS: HEPARIN 25,000UTS/500ML PREMIX 500 ML IV PRN (00:18)
[2018-04-05 05:13] LABS: BASO # 0.1 x10^3/uL (0.0-0.2); BASO % 1 % (0-3); EOS # 0.3 x10^3/uL (0.0-0.7); EOS % 3 % (0-3); HEMATOCRIT 30.7 % (36.0-47.0); HEMOGLOBIN 10.5 g/dL (12.0-15.5); LYMPH # 2.8 x10^3/uL (1.0-4.8); LYMPH % 31 % (24-48); MEAN CORPUSCULAR HEMOGLOBIN 31 pg (25-35); MEAN CORPUSCULAR HGB CONC 34 g/dL (31-37); MEAN CORPUSCULAR VOLUME 91 fL (79-100); MONO % 12 % (0-9); NEUT # 4.8 x10^3uL (1.8-7.7); NEUT % 54 % (31-73); PLATELET COUNT 163 x10^3/uL (140-400); RED BLOOD COUNT 3.39 x10^6/uL (3.50-5.40); RED CELL DISTRIBUTION WIDTH 12.9 % (11.5-14.5); WHITE BLOOD COUNT 8.9 x10^3/uL (4.0-11.0)
[2018-04-05 05:38] LABS: CREATININE 0.7 mg/dL (0.6-1.0); GFR 82.5; POTASSIUM 4.1 mmol/L (3.5-5.1)
[2018-04-05] MEDS: NITROGLYCERIN OINT 1 GM PACKET. TP SCH ×5 (06:00→23:02)
[2018-04-05] MEDS: IPRATRPIUM/ALBUTEROL 0.5/2.5MG 3 ML NEBU. NEB SCH ×4 (07:49→20:27)
[2018-04-05] MEDS: ONDANSETRON PF 4 MG/2 ML VIAL. IV PRN (08:01)
[2018-04-05] MEDS: ENALAPRILAT 1.25 MG/ML VIAL. IVP PRN (08:10)
[2018-04-05] MEDS ORDERED: ONDANSETRON PF 4 MG/2 ML VIAL. IV PRN (08:30)
[2018-04-05] MEDS ORDERED: NITROGLYCERIN PREMIX 250 ML IV ONE (08:45)
[2018-04-05] MEDS: CALCIUM CARBONATE 500 MG TABLET PO SCH (09:00)
[2018-04-05] MEDS: FLUTICASONE 50MCG/NASAL SPRAY 16GM BOTTLE. NS SCH ×2 (09:00→20:54)
[2018-04-05] MEDS: SENNOSIDES/DOCUSATE 8.6/50MG TABLET. PO SCH ×2 (09:00→20:54)
[2018-04-05] MEDS: DICLOFENAC SODIUM 25 MG TABLET.DR PO SCH ×2 (09:00→21:39)
[2018-04-05] MEDS: CYANOCOBALAMIN (VITAMIN B-12) 1,000 MCG TABLET. PO SCH (09:00)
[2018-04-05] MEDS: DOCUSATE SODIUM 100 MG CAPSULE. PO SCH ×2 (09:00→20:54)
[2018-04-05] MEDS: GABAPENTIN 300 MG CAPSULE. PO SCH ×3 (09:00→20:55)
[2018-04-05] MEDS: CITALOPRAM 10 MG TABLET. PO SCH (09:00)
[2018-04-05] MEDS: CHOLECALCIFEROL (VITAMIN D3) 1,000 UNIT TABLET PO SCH (09:00)
[2018-04-05] MEDS: ALPRAZolam 0.25 MG TABLET PO PRN (10:29)
[2018-04-05] MEDS: ACETAMINOPHEN 500 MG TABLET PO PRN ×2 (10:29→18:18)
[2018-04-05] MEDS: PANTOPRAZOLE 40 MG TABLET.DR. PO SCH (10:30)
[2018-04-05] MEDS: ASPIRIN ENTERIC COATED 81 MG TABLET.DR. PO SCH (10:30)
[2018-04-05] MEDS: CARVEDILOL 6.25 MG TABLET. PO SCH ×2 (10:33→18:16)
[2018-04-05] MEDS: LOSARTAN POTASSIUM 50 MG TABLET. PO SCH (10:34)
--- NOTE | 2018-04-05 11:27 | PDOC ---
PROGRESS NOTES Chief Complaint Chief Complaint CC: Chest pain MO, 2 stents CAD HTN GERD Osteoarthritis Chronic renal insufficiency Appendectomy Cholecystectomy Tonsillectomy Hysterectomy <1 ppd smoker History of Present Illness History of Present Illness Pt. seen and examined Dw bander present at bedside Pt sleepy cardiac cath for today Reviewed chart with family Vitals Vitals Vital Signs Date Time Temp Pulse Resp B/P (MAP) Pulse Ox O2 Delivery O2 Flow Rate FiO2 04/05/18 11:01 98.5 70 16 171/74 (106) 95 Nasal Cannula 2.0 98.5 Physical Exam General: Alert, No acute distress Heart: Regular rate, No murmurs Lungs: Crackles Abdomen: Normal bowel sounds Extremities: No edema, Normal pulses Skin: No rashes Labs LABS Laboratory Tests Test 04/04/18 13:05 04/04/18 17:18 04/04/18 21:03 04/05/18 04:55 Heparin Anti-Xa Act, Unfractionated 0.43 IU/mL (0.30-0.70) 0.42 IU/mL (0.30-0.70) Glucose (Fingerstick) 139 mg/dL (70-99) 153 mg/dL (70-99) White Blood Count 8.9 x10^3/uL (4.0-11.0) Red Blood Count 3.39 x10^6/uL (3.50-5.40) Hemoglobin 10.5 g/dL (12.0-15.5) Hematocrit 30.7 % (36.0-47.0) Mean Corpuscular Volume 91 fL (79-100) Mean Corpuscular Hemoglobin 31 pg (25-35) Mean Corpuscular Hemoglobin Concent 34 g/dL (31-37) Red Cell Distribution Width 12.9 % (11.5-14.5) Platelet Count 163 x10^3/uL (140-400) Neutrophils (%) (Auto) 54 % (31-73) Lymphocytes (%) (Auto) 31 % (24-48) Monocytes (%) (Auto) 12 % (0-9) Eosinophils (%) (Auto) 3 % (0-3) Basophils (%) (Auto) 1 % (0-3) Neutrophils # (Auto) 4.8 x10^3uL (1.8-7.7) Lymphocytes # (Auto) 2.8 x10^3/uL (1.0-4.8) Monocytes # (Auto) 1.0 x10^3/uL (0.0-1.1) Eosinophils # (Auto) 0.3 x10^3/uL (0.0-0.7) Basophils # (Auto) 0.1 x10^3/uL (0.0-0.2) Sodium Level 139 mmol/L (136-145) Potassium Level 4.1 mmol/L (3.5-5.1) Chloride Level 100 mmol/L (98-107) Carbon Dioxide Level 36 mmol/L (21-32) Anion Gap 3 (6-14) Blood Urea Nitrogen 16 mg/dL (7-20) Creatinine 0.7 mg/dL (0.6-1.0) Estimated GFR (Cockcroft-Gault) 82.5 Glucose Level 120 mg/dL (70-99) Calcium Level 9.0 mg/dL (8.5-10.1) Review of Systems Review of Systems pt complains of occasional c/p denies fever Assessment and Plan Assessmemt and Plan Assessment: Chest pain MO, 2 stents CAD HTN GERD Osteoarthritis Chronic renal insufficiency Appendectomy Cholecystectomy Tonsillectomy Hysterectomy <1 ppd smoker 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 Labs Laboratory Tests Test 04/03/18 19:59 04/04/18 07:15 04/04/18 13:05 04/04/18 17:18 Glucose (Fingerstick) 128 mg/dL (70-99) 139 mg/dL (70-99) White Blood Count 8.7 x10^3/uL (4.0-11.0) Red Blood Count 3.53 x10^6/uL (3.50-5.40) Hemoglobin 10.8 g/dL (12.0-15.5) Hematocrit 32.3 % (36.0-47.0) Mean Corpuscular Volume 92 fL (79-100) Mean Corpuscular Hemoglobin 31 pg (25-35) Mean Corpuscular Hemoglobin Concent 33 g/dL (31-37) Red Cell Distribution Width 12.9 % (11.5-14.5) Platelet Count 168 x10^3/uL (140-400) Neutrophils (%) (Auto) 70 % (31-73) Lymphocytes (%) (Auto) 19 % (24-48) Monocytes (%) (Auto) 10 % (0-9) Eosinophils (%) (Auto) 1 % (0-3) Basophils (%) (Auto) 1 % (0-3) Neutrophils # (Auto) 6.0 x10^3uL (1.8-7.7) Lymphocytes # (Auto) 1.6 x10^3/uL (1.0-4.8) Monocytes # (Auto) 0.8 x10^3/uL (0.0-1.1) Eosinophils # (Auto) 0.1 x10^3/uL (0.0-0.7) Basophils # (Auto) 0.1 x10^3/uL (0.0-0.2) Heparin Anti-Xa Act, Unfractionated 0.47 IU/mL (0.30-0.70) 0.43 IU/mL (0.30-0.70) Sodium Level 138 mmol/L (136-145) Potassium Level 4.7 mmol/L (3.5-5.1) Chloride Level 103 mmol/L (98-107) Carbon Dioxide Level 35 mmol/L (21-32) Anion Gap 0 (6-14) Blood Urea Nitrogen 14 mg/dL (7-20) Creatinine 0.8 mg/dL (0.6-1.0) Estimated GFR (Cockcroft-Gault) 70.7 Glucose Level 131 mg/dL (70-99) Calcium Level 8.5 mg/dL (8.5-10.1) Magnesium Level 1.4 mg/dL (1.8-2.4) Test 04/04/18 21:03 04/05/18 04:55 Glucose (Fingerstick) 153 mg/dL (70-99) White Blood Count 8.9 x10^3/uL (4.0-11.0) Red Blood Count 3.39 x10^6/uL (3.50-5.40) Hemoglobin 10.5 g/dL (12.0-15.5) Hematocrit 30.7 % (36.0-47.0) Mean Corpuscular Volume 91 fL (79-100) Mean Corpuscular Hemoglobin 31 pg (25-35) Mean Corpuscular Hemoglobin Concent 34 g/dL (31-37) Red Cell Distribution Width 12.9 % (11.5-14.5) Platelet Count 163 x10^3/uL (140-400) Neutrophils (%) (Auto) 54 % (31-73) Lymphocytes (%) (Auto) 31 % (24-48) Monocytes (%) (Auto) 12 % (0-9) Eosinophils (%) (Auto) 3 % (0-3) Basophils (%) (Auto) 1 % (0-3) Neutrophils # (Auto) 4.8 x10^3uL (1.8-7.7) Lymphocytes # (Auto) 2.8 x10^3/uL (1.0-4.8) Monocytes # (Auto) 1.0 x10^3/uL (0.0-1.1) Eosinophils # (Auto) 0.3 x10^3/uL (0.0-0.7) Basophils # (Auto) 0.1 x10^3/uL (0.0-0.2) Heparin Anti-Xa Act, Unfractionated 0.42 IU/mL (0.30-0.70) Sodium Level 139 mmol/L (136-145) Potassium Level 4.1 mmol/L (3.5-5.1) Chloride Level 100 mmol/L (98-107) Carbon Dioxide Level 36 mmol/L (21-32) Anion Gap 3 (6-14) Blood Urea Nitrogen 16 mg/dL (7-20) Creatinine 0.7 mg/dL (0.6-1.0) Estimated GFR (Cockcroft-Gault) 82.5 Glucose Level 120 mg/dL (70-99) Calcium Level 9.0 mg/dL (8.5-10.1) Laboratory Tests Test 04/04/18 13:05 04/04/18 17:18 04/04/18 21:03 04/05/18 04:55 Heparin Anti-Xa Act, Unfractionated 0.43 IU/mL (0.30-0.70) 0.42 IU/mL (0.30-0.70) Glucose (Fingerstick) 139 mg/dL (70-99) 153 mg/dL (70-99) White Blood Count 8.9 x10^3/uL (4.0-11.0) Red Blood Count 3.39 x10^6/uL (3.50-5.40) Hemoglobin 10.5 g/dL (12.0-15.5) Hematocrit 30.7 % (36.0-47.0) Mean Corpuscular Volume 91 fL (79-100) Mean Corpuscular Hemoglobin 31 pg (25-35) Mean Corpuscular Hemoglobin Concent 34 g/dL (31-37) Red Cell Distribution Width 12.9 % (11.5-14.5) Platelet Count 163 x10^3/uL (140-400) Neutrophils (%) (Auto) 54 % (31-73) Lymphocytes (%) (Auto) 31 % (24-48) Monocytes (%) (Auto) 12 % (0-9) Eosinophils (%) (Auto) 3 % (0-3) Basophils (%) (Auto) 1 % (0-3) Neutrophils # (Auto) 4.8 x10^3uL (1.8-7.7) Lymphocytes # (Auto) 2.8 x10^3/uL (1.0-4.8) Monocytes # (Auto) 1.0 x10^3/uL (0.0-1.1) Eosinophils # (Auto) 0.3 x10^3/uL (0.0-0.7) Basophils # (Auto) 0.1 x10^3/uL (0.0-0.2) Sodium Level 139 mmol/L (136-145) Potassium Level 4.1 mmol/L (3.5-5.1) Chloride Level 100 mmol/L (98-107) Carbon Dioxide Level 36 mmol/L (21-32) Anion Gap 3 (6-14) Blood Urea Nitrogen 16 mg/dL (7-20) Creatinine 0.7 mg/dL (0.6-1.0) Estimated GFR (Cockcroft-Gault) 82.5 Glucose Level 120 mg/dL (70-99) Calcium Level 9.0 mg/dL (8.5-10.1) Medications Current Medications Aspirin (Gerry Aspirin) 325 mg 1X ONCE PO Last administered on 04/01/18at 18:16 ; Start 04/01/18 at 17:30; Stop 04/01/18 at 17:31; Status DC Nitroglycerin (Nitrostat) 0.4 mg PRN Q5MIN PRN SL CHEST PAIN; Start 04/01/18 at 17:30; Stop 04/03/18 at 10:31; Status DC Nitroglycerin (Nitro-Bid Oint) 1 inch Q6HRS TP Last administered on 04/04/18at 17:32; Start 04/01/18 at 18:00 Morphine Sulfate (Morphine Sulfate) 1 mg PRN Q10MIN PRN IV CHEST PAIN Last administered on 04/03/18at 22:52; Start 04/01/18 at 17:30 Acetaminophen (Tylenol) 650 mg PRN Q6HRS PRN PO MILD PAIN / TEMP; Start at 17:30; Stop 04/05/18 at 10:04; Status DC Ondansetron HCl (Zofran) 4 mg PRN Q6HRS PRN IV NAUSEA/VOMITING Last administered on 04/05/18at 08:01; Start 04/01/18 at 17:30 Prochlorperazine (Compazine) 25 mg PRN Q12HR PRN [place] NAUSEA/VOMITING; Start at 17:30 Zolpidem Tartrate (Ambien) 5 mg PRN QHS PRN PO INSOMNIA, 1ST CHOICE Last administered on 04/03/18at 20:05; Start 04/01/18 at 17:30 Enoxaparin Sodium (Lovenox 40mg Syringe) 40 mg Q12HR SQ ; Start 04/01/18 at 21: 00; Status Cancel Sodium Chloride (Normal Saline Flush) 3 ml QSHIFT PRN IV AFTER MEDS AND BLOOD DRAWS; Start 04/01/18 at 17:30; Stop 04/03/18 at 10:32; Status DC Sodium Chloride 1,000 ml @ 100 mls/hr Q10H IV Last administered on 04/02/18at 20:39; Start 04/01/18 at 17:21; Stop 04/03/18 at 15:28; Status DC Senna/Docusate Sodium (Senna Plus) 1 tab BID PO Last administered on 04/03/18at 20:05; Start 04/01/18 at 21:00 Docusate Sodium (Colace) 100 mg BID PO Last administered on 04/03/18at 20:05; Start 04/01/18 at 21:00 Magnesium Hydroxide (Milk Of Magnesia) 2,400 mg PRN Q12HR PRN PO CONSTIPATION; Start 04/01/18 at 17:30 Aspirin (Ecotrin) 81 mg DAILY PO Last administered on 04/05/18 10:30; Start at 09:00 Carvedilol (Coreg) 6.25 mg BIDWMEALS PO Last administered on 04/05/18 10:33; Start 04/01/18 at 18:00 Vitamin D (Vitamin D3) 2,000 unit DAILY PO Last administered on 04/03/18 15:19 ; Start 04/02/18 at 09:00 Citalopram Hydrobromide (CeleXA) 10 mg DAILY PO Last administered on 04/03/18 15:19; Start 04/02/18 at 09:00 Cyanocobalamin (Vitamin B-12) 5,000 mcg DAILY PO Last administered on 15:18; Start 04/02/18 at 09:00 Fluticasone Propionate (Flonase) 1 spray BID NS Last administered on 04/03/18 20:01; Start 04/01/18 at 21:00 Ipratropium Boyd (Atrovent) 0.2 mg Q8HRS IH ; Start 04/01/18 at 22:00; Status Cancel Trazodone HCl (Desyrel) 100 mg QHS PO Last administered on 04/03/18at 20:05; Start 04/01/18 at 21:00 Atorvastatin Calcium (Lipitor) 80 mg QHS PO Last administered on 04/03/18at 20: 05; Start 04/01/18 at 21:00 Calcium Carbonate/ Glycine (Oscal) 500 mg DAILY PO Last administered on 10:18; Start 04/02/18 at 09:00 Diclofenac Sodium (Voltaren) 75 mg BID PO Last administered on 04/03/18 20:04 ; Start 04/01/18 at 21:00 Gabapentin (Neurontin) 600 mg TID PO Last administered on 04/03/18 20:05; Start 04/01/18 at 21:00 Losartan Potassium (Cozaar) 100 mg DAILY PO Last administered on 04/05/18at 10: 34; Start 04/02/18 at 09:00 Meclizine HCl (Antivert) 25 mg PRN TID PRN PO DIZZINESS; Start 04/01/18 at 18: 00 Pantoprazole Sodium (Protonix) 40 mg DAILYAC PO Last administered on 04/05/18at 10:30; Start 04/02/18 at 07:30 Albuterol/ Ipratropium (Duoneb) 3 ml RTQID NEB Last administered on 04/04/18at 12:09; Start 04/01/18 at 20:00 Enoxaparin Sodium (Lovenox 80mg Syringe) 80 mg Q12HR SQ Last administered on at 18:18; Start 04/01/18 at 19:01; Stop 04/02/18 at 07:18; Status DC Enalaprilat (Vasotec Inj) 1.25 mg PRN Q6HRS PRN IVP HYPERTENSION, SEE COMMENTS Last administered on 04/05/18at 08:10; Start 04/02/18 at 03:15 Enoxaparin Sodium (Lovenox 80mg Syringe) 70 mg Q12HR SQ Last administered on at 10:23; Start 04/02/18 at 09:00; Stop 04/02/18 at 18:44; Status DC Iohexol (Omnipaque 300 Mg/ml) 60 ml 1X ONCE IV Last administered on 04/02/18at 11:52; Start 04/02/18 at 11:30; Stop 04/02/18 at 11:31; Status DC Info (CONTRAST GIVEN -- Rx MONITORING) 1 each PRN DAILY PRN MC SEE COMMENTS; Start 04/02/18 at 11:30; Stop 04/04/18 at 11:29; Status DC Guaifenesin (Robitussin Dm) 10 ml PRN Q6HRS PRN PO COUGH 1ST CHOICE; Start at 17:30 Acetaminophen/ Hydrocodone Bitart (Lortab 5/325) 1 tab PRN Q4HRS PRN PO MODERATE - SEVERE PAIN Last administered on 04/04/18at 14:46; Start 04/02/18 at 17:30 Temazepam (Restoril) 7.5 mg PRN QHS PRN PO INSOMNIA, 2ND CHOICE; Start at 17:30 Enoxaparin Sodium (Lovenox 40mg Syringe) 40 mg Q24H SQ Last administered on at 20:04; Start 04/02/18 at 21:00; Stop 04/03/18 at 23:48; Status DC Iodixanol (Visipaque 320) 100 ml STK-MED ONCE .ROUTE ; Start 04/03/18 at 08:44; Stop 04/03/18 at 08:45; Status DC Heparin Sodium/ Sodium Chloride 1,000 ml @ As Directed STK-MED ONCE .ROUTE ; Start 04/03/18 at 08:45; Stop 04/03/18 at 08:46; Status DC Lidocaine HCl (Xylocaine 1% Pf 30ml Vial) 30 ml STK-MED ONCE .ROUTE ; Start at 08:49; Stop 04/03/18 at 08:50; Status DC Fentanyl Citrate (Fentanyl 2ml Vial) 100 mcg STK-MED ONCE .ROUTE ; Start at 08:52; Stop 04/03/18 at 08:53; Status DC Midazolam HCl (Versed) 5 mg STK-MED ONCE .ROUTE ; Start 04/03/18 at 08:52; Stop 04/03/18 at 08:53; Status DC Heparin Sodium/ Sodium Chloride (HEPARIN for ARTERIAL LINE FLUSH) 1,000 unit 1X ONCE IART Last administered on 04/03/18at 10:10; Start 04/03/18 at 09:45; Stop 04/03/18 at 09:47; Status DC Heparin Sodium/ Sodium Chloride (HEPARIN for ARTERIAL LINE FLUSH) 1,000 unit 1X ONCE IART Last administered on 04/03/18at 10:10; Start 04/03/18 at 09:45; Stop 04/03/18 at 09:47; Status DC Midazolam HCl (Versed) 5 mg 1X ONCE IV Last administered on 04/03/18at 10:11; Start 04/03/18 at 09:45; Stop 04/03/18 at 09:47; Status DC Fentanyl Citrate (Fentanyl 2ml Vial) 100 mcg 1X ONCE IV Last administered on at 10:11; Start 04/03/18 at 09:45; Stop 04/03/18 at 09:47; Status DC Iodixanol (Visipaque 320) 100 ml 1X ONCE IART Last administered on 04/03/18at 10:10; Start 04/03/18 at 09:45; Stop 04/03/18 at 09:47; Status DC Lidocaine HCl (Xylocaine 1% Pf 30ml Vial) 30 ml 1X ONCE INJ Last administered on 04/03/18at 10:10; Start 04/03/18 at 09:45; Stop 04/03/18 at 09:47; Status DC Sodium Chloride (Normal Saline Flush) 3 ml QSHIFT PRN IV AFTER MEDS AND BLOOD DRAWS; Start 04/03/18 at 10:30 Sodium Chloride 1,000 ml @ 75 mls/hr [id number] IV ; Start 04/03/18 at 10:26; Stop 04/03/18 at 16:32; Status DC Nitroglycerin (Nitrostat) 0.4 mg PRN Q5MIN PRN SL CHEST PAIN Last administered on 04/03/18at 11:56; Start 04/03/18 at 10:30 Morphine Sulfate (Morphine Sulfate) 4 mg PRN Q2HR PRN IV SEVERE PAIN; Start at 23:45 Morphine Sulfate (Morphine Sulfate) 2 mg PRN Q2HR PRN IV MODERATE PAIN Last administered on 04/04/18at 19:50; Start 04/03/18 at 23:45 Heparin Sodium/ Dextrose 500 ml @ 0 mls/hr CONT PRN IV SEE I/O RECORD Last administered on 04/05/18at 00:18; Start 04/03/18 at 23:45 Heparin Sodium (Porcine) (Heparin Sodium) 2,150 unit PRN Q6HRS PRN IV FOR UFH LEVEL LESS THAN 0.2 Last administered on 04/03/18at 23:53; Start 04/03/18 at 23: 45 Alprazolam (Xanax) 0.25 mg PRN Q6HRS PRN PO ANXIETY / AGITATION Last administered on 04/05/18at 10:29; Start 04/03/18 at 23:45 Info (Anti-Coagulation Monitoring By Pharmacy) 1 each PRN DAILY PRN MC SEE COMMENTS Last administered on 04/04/18at 09:41; Start 04/03/18 at 23:45 Regadenoson (Lexiscan) 0.4 mg 1X ONCE IV Last administered on 04/04/18at 09:00 ; Start 04/04/18 at 09:00; Stop 04/04/18 at 09:01; Status DC Ondansetron HCl (Zofran) 4 mg STK-MED ONCE .ROUTE ; Start 04/04/18 at 11:08; Stop 04/04/18 at 11:09; Status DC Magnesium Sulfate/ Dextrose 100 ml @ 100 mls/hr 1X ONCE IV ; Start 04/04/18 at 12:45; Stop 04/04/18 at 13:44; Status Cancel Magnesium Sulfate 50 ml @ 25 mls/hr 1X ONCE IV Last administered on 04/04/18at 13:11; Start 04/04/18 at 13:15; Stop 04/04/18 at 15:14; Status DC Ondansetron HCl (Zofran) 4 mg PRN Q6HRS PRN IV NAUSEA/VOMITING; Start 04/05/18 at 08:30 Nitroglycerin/ Dextrose 250 ml @ 0 mls/hr 1X ONCE IV Last administered on 04/05at 10:42; Start 04/05/18 at 08:45; Stop 04/05/18 at 08:47; Status DC Acetaminophen (Tylenol) 1,000 mg PRN Q6HRS PRN PO MILD PAIN / TEMP Last administered on 04/05/18at 10:29; Start 04/05/18 at 09:00 Active Scripts Active Reported Diclofenac Sodium 75 Mg Tablet.dr 75 Mg PO BID Citalopram Hbr (Citalopram Hydrobromide) 10 Mg Tablet 10 Mg PO DAILY Losartan Potassium 100 Mg Tablet 100 Mg PO DAILY Ipratropium Boyd 0.2 Mg/1 Ml Solution 0.2 Mg IH Q8HRS Meclizine Hcl 25 Mg Tablet 25 Mg PO QID PRN Spiriva (Tiotropium Boyd) 18 Mcg Cap.w.dev 1 Cap IH DAILY Calcium (Calcium Carbonate) 600 Mg Tablet 600 Mg PO DAILY Carvedilol 6.25 Mg Tablet 1 Tab PO BID Vitamin D3 (Cholecalciferol (Vitamin D3)) 1,000 Unit Tablet 2,000 Unit PO DAILY Vitamin B-12 (Cyanocobalamin (Vitamin B-12)) 1,000 Mcg Tablet 5,000 Mcg PO DAILY Omeprazole 40 Mg Capsule.dr 40 Mg PO DAILY Atorvastatin Calcium 80 Mg Tablet 80 Mg PO HS Fluticasone Propionate Nasal Coldiron (Fluticasone Propionate) 16 Gm Coldiron.susp 1 Coldiron NS BID Trazodone Hcl 100 Mg Tablet 1 Tab PO QHS Gabapentin 600 Mg Tablet 600 Mg PO TID Aspir 81 (Aspirin) 81 Mg Tablet. 1 Tab PO DAILY Vitals/I & O Vital Sign - Last 24 Hours 04/04/18 04/04/18 04/04/18 04/04/18 11:59 12:11 14:30 14:46 Temp 98.4 97.6 98.4 97.6 Pulse 67 79 Resp 16 18 B/P (MAP) 125/65 (85) 133/71 (91) Pulse Ox 93 94 94 O2 Delivery Nasal Cannula Nasal Cannula Nasal Cannula Room Air O2 Flow Rate 3.0 2.0 3.0 3.0 04/04/18 04/04/18 04/04/18 04/04/18 16:01 16:22 17:32 17:32 Pulse 79 79 B/P (MAP) 133/71 133/71 Pulse Ox 94 94 O2 Delivery Room Air Room Air O2 Flow Rate 3.0 3.0 04/04/18 04/04/18 04/04/18 04/04/18 19:25 19:50 20:00 20:20 Temp 98.6 98.6 Pulse 77 Resp 20 18 18 B/P (MAP) 165/70 (101) Pulse Ox 95 94 94 O2 Delivery Nasal Cannula Room Air Room Air Nasal Cannula O2 Flow Rate 2.0 3.0 2.0 04/04/18 04/05/18 04/05/18 04/05/18 23:35 03:50 07:47 07:52 Temp 98.2 97.8 98.4 98.2 97.8 98.4 Pulse 74 72 75 Resp 18 18 16 B/P (MAP) 139/65 (89) 150/78 (102) 164/81 (108) Pulse Ox 98 94 90 95 O2 Delivery Nasal Cannula Nasal Cannula Nasal Cannula Nasal Cannula O2 Flow Rate 2.0 2.0 2.0 2.0 04/05/18 04/05/18 04/05/18 04/05/18 08:10 10:33 10:34 11:01 Temp 98.5 98.5 Pulse 75 75 75 70 Resp 16 B/P (MAP) 198/89 171/74 171/74 171/74 (106) Pulse Ox 95 O2 Delivery Nasal Cannula O2 Flow Rate 2.0 Intake and Output 04/04/18 04/04/18 04/05/18 15:00 23:00 07:00 Intake Total 480 ml Balance 480 ml ARA MATTHEW III, DO Apr 05, 2018 11:27
--- NOTE | 2018-04-05 12:37 | PDOC ---
PULMONARY PROGRESS NOTES Subjective sob better, has occ cough, had cp last night, is tired, is on 02 at night Vitals Vital Signs Date Time Temp Pulse Resp B/P (MAP) Pulse Ox O2 Delivery O2 Flow Rate FiO2 04/05/18 11:01 98.5 70 16 171/74 (106) 95 Nasal Cannula 2.0 98.5 ROS: No Nausea, No Chest Pain General: Alert, Oriented X4 HEENT: Other (nc at perrl nose throat clear) Lungs: Clear Cardiovascular: S1, S2 Abdomen: Soft, Non-tender Neuro Exam: Alert Extremities: Other (trace edema) Skin: Warm Labs Laboratory Tests Test 04/03/18 19:59 04/04/18 07:15 04/04/18 13:05 04/04/18 17:18 Glucose (Fingerstick) 128 mg/dL (70-99) 139 mg/dL (70-99) White Blood Count 8.7 x10^3/uL (4.0-11.0) Red Blood Count 3.53 x10^6/uL (3.50-5.40) Hemoglobin 10.8 g/dL (12.0-15.5) Hematocrit 32.3 % (36.0-47.0) Mean Corpuscular Volume 92 fL (79-100) Mean Corpuscular Hemoglobin 31 pg (25-35) Mean Corpuscular Hemoglobin Concent 33 g/dL (31-37) Red Cell Distribution Width 12.9 % (11.5-14.5) Platelet Count 168 x10^3/uL (140-400) Neutrophils (%) (Auto) 70 % (31-73) Lymphocytes (%) (Auto) 19 % (24-48) Monocytes (%) (Auto) 10 % (0-9) Eosinophils (%) (Auto) 1 % (0-3) Basophils (%) (Auto) 1 % (0-3) Neutrophils # (Auto) 6.0 x10^3uL (1.8-7.7) Lymphocytes # (Auto) 1.6 x10^3/uL (1.0-4.8) Monocytes # (Auto) 0.8 x10^3/uL (0.0-1.1) Eosinophils # (Auto) 0.1 x10^3/uL (0.0-0.7) Basophils # (Auto) 0.1 x10^3/uL (0.0-0.2) Heparin Anti-Xa Act, Unfractionated 0.47 IU/mL (0.30-0.70) 0.43 IU/mL (0.30-0.70) Sodium Level 138 mmol/L (136-145) Potassium Level 4.7 mmol/L (3.5-5.1) Chloride Level 103 mmol/L (98-107) Carbon Dioxide Level 35 mmol/L (21-32) Anion Gap 0 (6-14) Blood Urea Nitrogen 14 mg/dL (7-20) Creatinine 0.8 mg/dL (0.6-1.0) Estimated GFR (Cockcroft-Gault) 70.7 Glucose Level 131 mg/dL (70-99) Calcium Level 8.5 mg/dL (8.5-10.1) Magnesium Level 1.4 mg/dL (1.8-2.4) Test 04/04/18 21:03 04/05/18 04:55 04/05/18 11:50 Glucose (Fingerstick) 153 mg/dL (70-99) 137 mg/dL (70-99) White Blood Count 8.9 x10^3/uL (4.0-11.0) Red Blood Count 3.39 x10^6/uL (3.50-5.40) Hemoglobin 10.5 g/dL (12.0-15.5) Hematocrit 30.7 % (36.0-47.0) Mean Corpuscular Volume 91 fL (79-100) Mean Corpuscular Hemoglobin 31 pg (25-35) Mean Corpuscular Hemoglobin Concent 34 g/dL (31-37) Red Cell Distribution Width 12.9 % (11.5-14.5) Platelet Count 163 x10^3/uL (140-400) Neutrophils (%) (Auto) 54 % (31-73) Lymphocytes (%) (Auto) 31 % (24-48) Monocytes (%) (Auto) 12 % (0-9) Eosinophils (%) (Auto) 3 % (0-3) Basophils (%) (Auto) 1 % (0-3) Neutrophils # (Auto) 4.8 x10^3uL (1.8-7.7) Lymphocytes # (Auto) 2.8 x10^3/uL (1.0-4.8) Monocytes # (Auto) 1.0 x10^3/uL (0.0-1.1) Eosinophils # (Auto) 0.3 x10^3/uL (0.0-0.7) Basophils # (Auto) 0.1 x10^3/uL (0.0-0.2) Heparin Anti-Xa Act, Unfractionated 0.42 IU/mL (0.30-0.70) Sodium Level 139 mmol/L (136-145) Potassium Level 4.1 mmol/L (3.5-5.1) Chloride Level 100 mmol/L (98-107) Carbon Dioxide Level 36 mmol/L (21-32) Anion Gap 3 (6-14) Blood Urea Nitrogen 16 mg/dL (7-20) Creatinine 0.7 mg/dL (0.6-1.0) Estimated GFR (Cockcroft-Gault) 82.5 Glucose Level 120 mg/dL (70-99) Calcium Level 9.0 mg/dL (8.5-10.1) Laboratory Tests Test 04/04/18 13:05 04/04/18 17:18 04/04/18 21:03 04/05/18 04:55 Heparin Anti-Xa Act, Unfractionated 0.43 IU/mL (0.30-0.70) 0.42 IU/mL (0.30-0.70) Glucose (Fingerstick) 139 mg/dL (70-99) 153 mg/dL (70-99) White Blood Count 8.9 x10^3/uL (4.0-11.0) Red Blood Count 3.39 x10^6/uL (3.50-5.40) Hemoglobin 10.5 g/dL (12.0-15.5) Hematocrit 30.7 % (36.0-47.0) Mean Corpuscular Volume 91 fL (79-100) Mean Corpuscular Hemoglobin 31 pg (25-35) Mean Corpuscular Hemoglobin Concent 34 g/dL (31-37) Red Cell Distribution Width 12.9 % (11.5-14.5) Platelet Count 163 x10^3/uL (140-400) Neutrophils (%) (Auto) 54 % (31-73) Lymphocytes (%) (Auto) 31 % (24-48) Monocytes (%) (Auto) 12 % (0-9) Eosinophils (%) (Auto) 3 % (0-3) Basophils (%) (Auto) 1 % (0-3) Neutrophils # (Auto) 4.8 x10^3uL (1.8-7.7) Lymphocytes # (Auto) 2.8 x10^3/uL (1.0-4.8) Monocytes # (Auto) 1.0 x10^3/uL (0.0-1.1) Eosinophils # (Auto) 0.3 x10^3/uL (0.0-0.7) Basophils # (Auto) 0.1 x10^3/uL (0.0-0.2) Sodium Level 139 mmol/L (136-145) Potassium Level 4.1 mmol/L (3.5-5.1) Chloride Level 100 mmol/L (98-107) Carbon Dioxide Level 36 mmol/L (21-32) Anion Gap 3 (6-14) Blood Urea Nitrogen 16 mg/dL (7-20) Creatinine 0.7 mg/dL (0.6-1.0) Estimated GFR (Cockcroft-Gault) 82.5 Glucose Level 120 mg/dL (70-99) Calcium Level 9.0 mg/dL (8.5-10.1) Test 04/05/18 11:50 Glucose (Fingerstick) 137 mg/dL (70-99) Medications Active Scripts Medications Dose Route/Sig Max Daily Dose Days Date Category Diclofenac Sodium 75 Mg Tablet.dr 75 Mg PO BID 04/01/18 Reported Citalopram Hbr (Citalopram Hydrobromide) 10 Mg Tablet 10 Mg PO DAILY 04/01/18 Reported Losartan Potassium 100 Mg Tablet 100 Mg PO DAILY 04/01/18 Reported Ipratropium [place] 0.2 Mg/1 Ml Solution 0.2 Mg IH Q8HRS 04/01/18 Reported Meclizine Hcl 25 Mg Tablet 25 Mg PO QID PRN 04/01/18 Reported Spiriva (Tiotropium [place]) 18 Mcg Cap.w.dev 1 Cap IH DAILY 04/01/18 Reported Calcium (Calcium Carbonate) 600 Mg Tablet 600 Mg PO DAILY 04/01/18 Reported Carvedilol 6.25 Mg Tablet 1 Tab PO BID 08/13/17 Reported Vitamin D3 (Cholecalciferol (Vitamin D3)) 1,000 Unit Tablet 2,000 Unit PO DAILY 08/13/17 Reported Vitamin B-12 (Cyanocobalamin (Vitamin B-12)) 1,000 Mcg Tablet 5,000 Mcg PO DAILY 08/13/17 Reported Omeprazole 40 Mg Capsule.dr 40 Mg PO DAILY 08/13/17 Reported Atorvastatin Calcium 80 Mg Tablet 80 Mg PO HS 08/13/17 Reported Fluticasone Propionate Nasal [place] (Fluticasone Propionate) 16 Gm [place].susp 1 [place] NS BID 08/13/17 Reported Trazodone Hcl 100 Mg Tablet 1 Tab PO QHS 10/03/15 Reported Gabapentin 600 Mg Tablet 600 Mg PO TID 10/03/15 Reported Aspir 81 (Aspirin) 81 Mg Tablet.dr 1 Tab PO DAILY 10/03/15 Reported Comments 1. No evidence of pulmonary embolism. 2. Small nodules identified in the right upper lobe, right middle lobe of lung with the largest measuring 4 mm. Follow-up per Fleischner Society guidelines follow-up CT in 6 months. 3. Mild left lung base airspace opacity likely atelectasis or infiltrate. 4. Moderate emphysematous changes identified in the lungs. 5. A 1.8 cm nodule identified in the left adrenal gland likely lipid rich adrenal adenoma. 6. 1 cm hypodense nodule identified in the right lobe of the thyroid gland. Recommend follow-up ultrasound thyroid. Impression . 1. Abnormal VQ scan read out as high probability, CTA no PE, has cp, s/p cardiac cath 04/03 2. Chronic obstructive pulmonary disease. 40 yrs of tobacco use 3. Chronic respiratory failure. 4. Protein malnutrition, present upon admission. 5. Atypical chest pain, suspect secondary to reflux. 6. Coronary artery disease with previous myocardial infarction. 7. Gastroesophageal reflux. Plan . PLAN: 1. CT angiogram, venous Dopplers of the lower extremities were negative: lovenox for dvt prophylaxis 2. 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 3. Follow up with her primary care doctor, Dr. Conley. 4. BD 5. cardiac cath, Normal LV systolic function Moderate LAD disease. Ostial borderline lesion in large RCA including a LCX vessel. cardiology to review and consider possible [place] assisted revascularization. discussed w pt and rn JUANY GODDARD MD Apr 05, 2018 12:37
[2018-04-05] MEDS ORDERED: LIDOCAINE 1% PF 30 ML VIAL. ONE (15:01)
[2018-04-05] MEDS ORDERED: NITROGLYCERIN 200 MCG/2 ML SYRINGE FOR CATH/VASC LAB. ONE (15:16)
[2018-04-05] MEDS ORDERED: HEPARIN for IV BOLUS 10,000 UNIT/10 ML VIAL. ONE (15:16)
[2018-04-05] MEDS ORDERED: VERAPAMIL 5 MG/2 ML VIAL. ONE (15:16)
[2018-04-05] MEDS ORDERED: fentaNYL PF VIAL 100 MCG/2 ML VIAL ONE (15:16)
[2018-04-05] MEDS ORDERED: MIDAZOLAM HCL/PF 2 MG/2 ML VIAL. ONE ×2 (15:16→15:43)
[2018-04-05] MEDS ORDERED: BIVALIRUDIN 250 MG VIAL. IV ONE ×2 (15:17→16:00)
[2018-04-05] MEDS ORDERED: IODIXANOL 320 MG/ML 100 ML VIAL. ONE ×2 (15:31→16:18)
[2018-04-05] MEDS ORDERED: MIDAZOLAM HCL/PF 2 MG/2 ML VIAL. IV ONE (16:00)
[2018-04-05] MEDS ORDERED: HEPARIN for IV BOLUS 10,000 UNIT/10 ML VIAL. IART ONE (16:00)
[2018-04-05] MEDS ORDERED: NITROGLYCERIN 200 MCG/2 ML SYRINGE FOR CATH/VASC LAB. IART ONE (16:00)
[2018-04-05] MEDS ORDERED: IODIXANOL 320 MG/ML 100 ML VIAL. IART ONE (16:00)
[2018-04-05] MEDS ORDERED: VERAPAMIL 5 MG/2 ML VIAL. IART ONE (16:00)
[2018-04-05] MEDS ORDERED: fentaNYL PF VIAL 100 MCG/2 ML VIAL IV ONE (16:00)
[2018-04-05] MEDS ORDERED: LIDOCAINE 1% PF 30 ML VIAL. INJ ONE (16:00)
[2018-04-05] MEDS ORDERED: CLOPIDOGREL BISULFATE 75 MG TABLET PO ONE (16:30)
[2018-04-05] MEDS ORDERED: CLOPIDOGREL BISULFATE 75 MG TABLET ONE (16:35)
--- NOTE | 2018-04-05 16:51 | PDOC ---
MODERATE SEDATION ASSESSMENT RISKS/ALTERNATIVES Risks/Alternatives Risks and alternatives of this type of sedation and procedure discussed with: RISK/ALTERNATIVES: Patient H & P ON CHART H & P H & P on chart and reviewed for co-morbid conditions and appropriate labs. H&P ON CHART: Yes STATUS PREG STATUS ASSESSED: N/A MEDS/ALLERGIES REVIEWED Meds/Allergies Reviewed Medications and Allergies including time and route of recently administered narcotics and sedatives. MEDS/ALLERGIES REVIEWED: Yes ASA RATING ASA RATING: III AIRWAY ASSESSMENT Airway Assessment Airway patency, oral function limitations, presence of caps, crowns, dentures, partials, and ability to extend neck assessed. AIRWAY ASSESSMENT: Yes MALLAMPATI SCORE MALLAMPATI SCORE: II PRE-SEDATION ASSESSMENT PRE-SEDATION ASSESSMENT: Yes FERNANDO WILKINSON MD Apr 05, 2018 16:51
[2018-04-05] MEDS ORDERED: ACETAMINOPHEN 325 MG TABLET. PO PRN (17:00)
[2018-04-05] MEDS ORDERED: NITROGLYCERIN SUBLINGUAL 0.4 MG BOTTLE OF 25. SL PRN (17:00)
--- NOTE | 2018-04-05 17:03 | CARD ---
MR#: [id number] Date of Study: 04/05/2018 Ordering Physician: FERNANDO WILKINSON, Referring Physician: DANIELLE PARKER, Tech: RT Julio César (Randee) BHUPENDRA APPROVED REPORT Technologist: RT Julio César (R) BHUPENDRA Nurse: Monae Weiner RN Procedure(s) performed: Successful PCI/drug eluting stent placement to the right coronary artery Moderate sedation: 48 min INDICATION The indication(s) include : 72-year-old female with history of coronary artery disease underwent card iac catheterization 04/03/18 secondary to unstable angina and was found to have significant 80% stenos is involving a large and dominant right coronary artery which 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 Patient has been referred to pa for PCI/stent placement.. PROCEDURE NARRATIVE After explaining the risks, benefits and alternative options, informed consent was obtained from kaitlin ent she was brought to the cardiac Slot Floor Attendant and her right wrist was prepped and draped in the usual f ashion after confirming a positive modified Gregorio's test. Arterial access was obtained in the right r adial artery and a 6 Tamazight sheath was inserted. A 6 Tamazight JR4 guide catheter with sideholes was adv anced under fluoroscopy guidance and the right coronary artery was engaged. 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 The stenosis was crossed with a 0.014 inch [email or web address] guidewire, predilated with a 3.0 x 8 mm raad k balloon following which this was successfully treated with a 3.5 x 8 mm Xience Alpine drug-eluting stent. Follow-up angiography showed resolution of the stenosis to 0% with MIRZA-3 distal flow. Patient tolerated the procedure well. Hemostasis was achieved using TR band. There were no immediate complic ations. Conclusion Successful PCI/drug eluting stent placement to the right coronary artery Recommendations 1. Aspirin 325 mg daily 2. Plavix 75 mg daily for preferably one year 3. Cardiovascular risk factor modification Signed by : Fernando Pasnoori, Electronically Approved : 04/05/2018 17:02:28
--- NOTE | 2018-04-05 17:50 | CARD ---
MR#: [id number] Date of Study: 04/03/2018 Ordering Physician: INEZ CARROLL, Referring Physician: DANIELLE PARKER, Tech: Leonel Hernández, RT (R) APPROVED REPORT Procedures Left heart catheterization Left ventriculogram Selective coronary angiogram The patient is a 72-year-old female with recurrent episodes of chest pain. Patient has had pain over the past 5-6 days. Pulmonary workup for a possible pulmonary embolism has been negative. In the setti ng of recurrent and progressive chest pain a cardiac catheterization was recommended for evaluation o f possible underlying coronary artery disease. Risks and benefits of the procedure were discussed wit h the patient. She agreed to proceed. After informed consent was obtained the patient was brought to the heart catheterization lab. The are a of the right femoral artery was prepared in the usual manner with Betadine, sterile draping and loc al anesthetic. An 18-gauge needle was used to enter the right femoral artery, a wire placed the 6 Sumit lah sheath placed over wire. A 6 [place] JL4 diagnostic catheter was used to engage the left system an d sequential injections in various views were obtained. A 6 [place] JR4 diagnostic catheter was then a dvanced the ascending aorta. It was used to engage the right coronary artery. Sequential injections i n various views were obtained. A pigtail catheter was advanced to ascending aorta and then the left v entricle. A 30 ADAMS left ventricular gram was performed. Pullback pressures were measured. The cathet er was removed from the patient. Injection the sheath showed normal placement. The sheath was removed and sealed with an Angio-Seal product. Hemodynamics. LV pressure 126/8,18 Aortic root pressure 122/56 Coronaries Left main. The patient had anomalous left circumflex off the right coronary artery. Left anterior descending. The LAD was a moderate size vessel. It had an ostial 10-15% lesion a mid le taylor of 40-45% and a distal lesion of 35%. Left circumflex. The left circumflex came off the right coronary artery. It had a proximal disease of approximately 30%. Right coronary artery. The right coronary was a large dominant vessel. It had a probable ostial steno sis estimated at 80%. Proximally it had a 30% lesion. In its midportion there was a previously placed patent stent. More distally there was a 35-40% lesion. Left ventriculogram. The left ventricle showed normal left ventricular systolic function and no significant mitral regurgi tation. <Conclusion> Ostial right coronary artery disease estimated at 80%. Patent right coronary artery stent with mild to moderate disease in the right coronary artery. 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 Moderate disease in the LAD with no lesions greater than 50%. At this time will continue to monitor the patient. We'll evaluate whether the patient will remain a r equire extra supportive measures to proceed with a intervention of her ostial dominant right coronary artery with an anomalous left circumflex coming off the vessel. Signed by : Robby Juárez MD Electronically Approved : 04/05/2018 17:49:06
[2018-04-05] MEDS ORDERED: IV 1/2 NORMAL SALINE 1,000 ML IV SCH (18:00)
[2018-04-05] MEDS: traZODone 100 MG TABLET. PO SCH (20:54)
[2018-04-05] MEDS: ATORVASTATIN CALCIUM 40 MG TABLET. PO SCH (20:55)
[2018-04-06 03:25] VITALS: BP 126/64
[2018-04-06 04:32] LABS: BASO # 0.1 x10^3/uL (0.0-0.2); BASO % 1 % (0-3); EOS # 0.2 x10^3/uL (0.0-0.7); EOS % 3 % (0-3); HEMATOCRIT 30.6 % (36.0-47.0); HEMOGLOBIN 10.6 g/dL (12.0-15.5); LYMPH # 2.9 x10^3/uL (1.0-4.8); LYMPH % 35 % (24-48); MEAN CORPUSCULAR HEMOGLOBIN 31 pg (25-35); MEAN CORPUSCULAR HGB CONC 35 g/dL (31-37); MEAN CORPUSCULAR VOLUME 91 fL (79-100); MONO # 0.9 x10^3/uL (0.0-1.1); MONO % 11 % (0-9); NEUT # 4.1 x10^3uL (1.8-7.7); NEUT % 50 % (31-73); PLATELET COUNT 177 x10^3/uL (140-400); RED BLOOD COUNT 3.38 x10^6/uL (3.50-5.40); RED CELL DISTRIBUTION WIDTH 12.9 % (11.5-14.5); WHITE BLOOD COUNT 8.2 x10^3/uL (4.0-11.0)
[2018-04-06 05:12] LABS: CREATININE 0.9 mg/dL (0.6-1.0); GFR 61.7; POTASSIUM 3.9 mmol/L (3.5-5.1)
[2018-04-06] MEDS: NITROGLYCERIN OINT 1 GM PACKET. TP SCH ×2 (06:00→12:00)
[2018-04-06 07:00] VITALS: BP 156/77
[2018-04-06] MEDS: IPRATRPIUM/ALBUTEROL 0.5/2.5MG 3 ML NEBU. NEB SCH ×2 (07:13→10:56)
[2018-04-06] MEDS ORDERED: CLOPIDOGREL BISULFATE 75 MG TABLET PO SCH (08:00)
[2018-04-06] MEDS ORDERED: ASPIRIN ENTERIC COATED 325 MG TABLET.DR. PO SCH (08:00)
[2018-04-06] MEDS: DOCUSATE SODIUM 100 MG CAPSULE. PO SCH (08:30)
[2018-04-06] MEDS: GABAPENTIN 300 MG CAPSULE. PO SCH (08:30)
[2018-04-06] MEDS: LOSARTAN POTASSIUM 50 MG TABLET. PO SCH (08:31)
[2018-04-06] MEDS: CITALOPRAM 10 MG TABLET. PO SCH (08:31)
[2018-04-06] MEDS: PANTOPRAZOLE 40 MG TABLET.DR. PO SCH (08:31)
[2018-04-06] MEDS: SENNOSIDES/DOCUSATE 8.6/50MG TABLET. PO SCH (08:31)
[2018-04-06 08:32] VITALS: BP 156/77
[2018-04-06] MEDS: CARVEDILOL 6.25 MG TABLET. PO SCH (08:32)
[2018-04-06] MEDS: CALCIUM CARBONATE 500 MG TABLET PO SCH (08:32)
[2018-04-06] MEDS: CYANOCOBALAMIN (VITAMIN B-12) 1,000 MCG TABLET. PO SCH (08:34)
[2018-04-06] MEDS: CHOLECALCIFEROL (VITAMIN D3) 1,000 UNIT TABLET PO SCH (08:34)
[2018-04-06] MEDS: DICLOFENAC SODIUM 25 MG TABLET.DR PO SCH (08:34)
[2018-04-06] MEDS: ALPRAZolam 0.25 MG TABLET PO PRN (08:34)
[2018-04-06] MEDS: FLUTICASONE 50MCG/NASAL SPRAY 16GM BOTTLE. NS SCH (08:36)
--- NOTE | 2018-04-06 10:07 | PDOC ---
CARDIO Progress Notes Date and Time Date of Service 04/06/2018 Time of Evaluation 1001 Subjective Subjective: No Chest Pain, No shortness of breath, No Palpitations, No Dizziness, Other (no nausea) Vitals Vitals Vital Signs Date Time Temp Pulse Resp B/P (MAP) Pulse Ox O2 Delivery O2 Flow Rate FiO2 04/06/18 08:32 85 156/77 04/06/18 07:15 84 Nasal Cannula 04/06/18 07:00 98.1 18 2.0 98.1 Weight Weight [ ] Input and Output Intake and Output Intake and Output 04/06/18 07:00 Intake Total 220 ml Output Total 1150 ml Balance -930 ml Intake Oral 220 ml Output Urine Total 1150 ml # Voids 1 Laboratory Labs Laboratory Tests Test 04/05/18 11:50 04/05/18 20:33 04/06/18 03:30 04/06/18 07:11 Glucose (Fingerstick) 137 mg/dL (70-99) 110 mg/dL (70-99) 101 mg/dL (70-99) White Blood Count 8.2 x10^3/uL (4.0-11.0) Red Blood Count 3.38 x10^6/uL (3.50-5.40) Hemoglobin 10.6 g/dL (12.0-15.5) Hematocrit 30.6 % (36.0-47.0) Mean Corpuscular Volume 91 fL (79-100) Mean Corpuscular Hemoglobin 31 pg (25-35) Mean Corpuscular Hemoglobin Concent 35 g/dL (31-37) Red Cell Distribution Width 12.9 % (11.5-14.5) Platelet Count 177 x10^3/uL (140-400) Neutrophils (%) (Auto) 50 % (31-73) Lymphocytes (%) (Auto) 35 % (24-48) Monocytes (%) (Auto) 11 % (0-9) Eosinophils (%) (Auto) 3 % (0-3) Basophils (%) (Auto) 1 % (0-3) Neutrophils # (Auto) 4.1 x10^3uL (1.8-7.7) Lymphocytes # (Auto) 2.9 x10^3/uL (1.0-4.8) Monocytes # (Auto) 0.9 x10^3/uL (0.0-1.1) Eosinophils # (Auto) 0.2 x10^3/uL (0.0-0.7) Basophils # (Auto) 0.1 x10^3/uL (0.0-0.2) Sodium Level 142 mmol/L (136-145) Potassium Level 3.9 mmol/L (3.5-5.1) Chloride Level 102 mmol/L (98-107) Carbon Dioxide Level 36 mmol/L (21-32) Anion Gap 4 (6-14) Blood Urea Nitrogen 17 mg/dL (7-20) Creatinine 0.9 mg/dL (0.6-1.0) Estimated GFR (Cockcroft-Gault) 61.7 Glucose Level 88 mg/dL (70-99) Calcium Level 9.0 mg/dL (8.5-10.1) Physical Exam HEENT: Neck Supple W Full Motion Chest: Symmetric LUNGS: Clear to Auscultation Heart: S1S2, RRR, other (tele: SR) Abdomen: Soft N/T Extremities: No Edema, Other (right wrist site C/D/I; pulse 2+; cap refill brisk) Neurology: alert, oriented, follow commands Assessment Assessment 1. angina --s/p PCI/ALFREDO to RCA --continue DAPT X 12 months, preferably --continue BB, ARB and high dose statin therapy --patient plans to follow up with [facility] - advised to make appt for 2 weeks 2. HTN --control with meds 3. HLD --continue high dose statin therapy 4. asthma/copd --per MAXIMO Cormier APRN Apr 06, 2018 10:07
[2018-04-06] MEDS ORDERED: CLOP75TA PO (10:10)
[2018-04-06] MEDS ORDERED: ASPI325T11 PO (10:10)
--- NOTE | 2018-04-06 13:09 | PDOC3 ---
Discharge Summary [facility] Date of Admission: Apr 01, 2018 Discharge Date: Apr 06, 2018 Admitting Diagnosis Chest pain, unstable angina s/p PCI with 1 stent at RCA H/O PA, 2 stents HTN GERD Osteoarthritis Chronic renal insufficiency Appendectomy Cholecystectomy Tonsillectomy Hysterectomy <1 ppd smoker MORbid obesity CONSULTS card Brief Hospital Course Ms. Garcia is a 72 old F, with h/o stents, coming for chest pain. got Cath needed 1 stent at RCA. pt feels good now, no chest pain dc home with asa, plavix. cont bb and statin ,and ACEI dc time 35min. General: Alert, No acute distress Heart: Regular rate, No murmurs Lungs: bl base mild crackles Abdomen: Normal bowel sounds Extremities: No edema, Normal pulses Skin: No rashes Disposition home CONDITION AT DISCHARGE: Improved Scheduled Aspirin (Aspirin Ec), 325 MG PO DAILYWBKFT Atorvastatin Calcium (Atorvastatin Calcium), 80 MG PO HS, (Reported) Calcium Carbonate (Calcium), 600 MG PO DAILY, (Reported) Carvedilol (Carvedilol), 1 TAB PO BID, (Reported) Cholecalciferol (Vitamin D3) (Vitamin D3), 2,000 UNIT PO DAILY, (Reported) Citalopram Hydrobromide (Citalopram Hbr), 10 MG PO DAILY, (Reported) Clopidogrel Bisulfate (Clopidogrel), 75 MG PO DAILYWBKFT Cyanocobalamin (Vitamin B-12) (Vitamin B-12), 5,000 MCG PO DAILY, (Reported) Fluticasone Propionate (Fluticasone Propionate Nasal [place]), 1 SPRAY NS BID, ( Reported) Gabapentin (Gabapentin), 600 MG PO TID, (Reported) Ipratropium [place] (Ipratropium [place]), 0.2 MG IH Q8HRS, (Reported) Losartan Potassium (Losartan Potassium), 100 MG PO DAILY, (Reported) Omeprazole (Omeprazole), 40 MG PO DAILY, (Reported) Tiotropium [place] (Spiriva), 1 CAP IH DAILY, (Reported) Trazodone Hcl (Trazodone Hcl), 1 TAB PO QHS, (Reported) Scheduled PRN Meclizine Hcl (Meclizine Hcl), 25 MG PO QID PRN for SEE COMMENTS, (Reported) Discontinued Medications Aspirin (Aspir 81), 1 TAB PO DAILY, (Reported) Diclofenac Sodium (Diclofenac Sodium), 75 MG PO BID, (Reported) AIDEE COOPER MD Apr 06, 2018 13:09
== END 2018-04-06 12:15 | disposition home or self-care (01) | DRG 246 ==
LOC: 2 NORTH 15:00
PROVIDERS: ADMIT Family Medicine; ATTEND Family Medicine
PROC: 4A023N7 Measurement of Cardiac Sampling and Pressure, Left Heart, Percutaneous Approach (ICD-10-PCS; principal; 2018-04-02)
PROC: B2111ZZ Fluoroscopy of Multiple Coronary Arteries using Low Osmolar Contrast (ICD-10-PCS; 2018-04-02)
PROC: B2151ZZ Fluoroscopy of Left Heart using Low Osmolar Contrast (ICD-10-PCS; 2018-04-02)
PROC: 027034Z Dilation of Coronary Artery, One Artery with Drug-eluting Intraluminal Device, Percutaneous Approach (ICD-10-PCS; 2018-04-05)
DX: I25.110 Atherosclerotic heart disease of native coronary artery with unstable angina pectoris (principal); I50.21 Acute systolic (congestive) heart failure; E46 Unspecified protein-calorie malnutrition; J96.10 Chronic respiratory failure, unspecified whether with hypoxia or hypercapnia; E66.01 Morbid (severe) obesity due to excess calories; E78.5 Hyperlipidemia, unspecified; I12.9 Hypertensive chronic kidney disease with stage 1 through stage 4 chronic kidney disease, or unspecified chronic kidney disease; J44.9 Chronic obstructive pulmonary disease, unspecified; K21.9 Gastro-esophageal reflux disease without esophagitis; M19.90 Unspecified osteoarthritis, unspecified site; N18.9 Chronic kidney disease, unspecified; F32.9 Major depressive disorder, single episode, unspecified; R79.1 Abnormal coagulation profile; F17.210 Nicotine dependence, cigarettes, uncomplicated; I25.2 Old myocardial infarction; Z95.5 Presence of coronary angioplasty implant and graft; Z90.710 Acquired absence of both cervix and uterus; Z90.49 Acquired absence of other specified parts of digestive tract; Z90.89 Acquired absence of other organs; Z88.0 Allergy status to penicillin; Z88.8 Allergy status to other drugs, medicaments and biological substances; Z91.040 Latex allergy status; Z68.32 Body mass index [BMI] 32.0-32.9, adult
CPT/HCPCS: 36415; 71275; 78452; 78582; 80048; 80053; 80061; 82962; 83735; 84443; 84484; 85025; 85520; 85610; 92928; 93005; 93017; 93306; 93458; 93970; 94640; 94760; 96374; 96375; 96376; 99152; 99153; A9500; A9540; A9558; C1725; C1769; C1771; C1887; C1892; G0269; J0583; J1644; J1650; J2250; J2270; J2405; J2785; J3010; J3475; J3490; J7030; J7620; Q9967; 97110

== ENCOUNTER 2020-03-01 16:15 | Inpatient (IN) | payer MEDICARE ==
[~2020-03-01] VITALS: Ht 160 cm; Wt 93.1 kg
[~2020-03-01 16:15] MED LIST changes: +AMLO5TAB10 PO; -AMLO5TAB7 PO; +ASPI325T11 PO; +CALC600T6 PO; +CARV6.2511 PO; -CARV6.252 PO; +CITA10TA4 PO; +CLOP75TA PO; +CYAN-25 PO; -CYAN10005 PO; +DICL75TA PO; -GABA600T2 PO; +GABA600T7 PO; +HYDR-2145 PO; -HYDR25TA9 PO; +IPRA0.2S5 IH; +LOSA-73 PO; +LOSA100T14 PO; -LOSA50TA7 PO; +MECL-75 PO; +OMEP20CA16 PO; -OMEP20CA9 PO; +OMEP40CA45 PO; -OMEP40CA5 PO; +TRAZ-123 PO; -TRAZ-86 PO
[2020-03-01] MEDS ORDERED: cefTRIAXone IV Push 1 GM VIAL. IVP ONE (17:00)
[2020-03-01 17:01] LABS: BASO # 0.1 x10^3/uL (0.0-0.2); BASO % 1 % (0-3); EOS # 0.2 x10^3/uL (0.0-0.7); EOS % 2 % (0-3); HEMATOCRIT 36.9 % (36.0-47.0); HEMOGLOBIN 12.5 g/dL (12.0-15.5); LYMPH # 2.4 x10^3/uL (1.0-4.8); LYMPH % 26 % (24-48); MEAN CORPUSCULAR HEMOGLOBIN 31 pg (25-35); MEAN CORPUSCULAR HGB CONC 34 g/dL (31-37); MEAN CORPUSCULAR VOLUME 92 fL (79-100); MONO # 1.1 x10^3/uL (0.0-1.1); MONO % 12 % (0-9); NEUT # 5.6 x10^3/uL (1.8-7.7); NEUT % 60 % (31-73); PLATELET COUNT 203 x10^3/uL (140-400); RED BLOOD COUNT 4.01 x10^6/uL (3.50-5.40); WHITE BLOOD COUNT 9.4 x10^3/uL (4.0-11.0)
[2020-03-01 17:14] LABS: CALCIUM 8.7 mg/dL (8.5-10.1); GFR 54.3; POTASSIUM 3.9 mmol/L (3.5-5.1)
--- NOTE | 2020-03-01 17:30 | PHYS DOC ---
Past Medical History Past Medical History: Arthritis, CAD, GERD, Hypertension, [place] Additional Past Medical Histor: CHRONIC RENAL INSUFFICIENCY Past Surgical History: Appendectomy, Cholecystectomy, Hysterectomy, Tonsillectomy, Other Additional Past Surgical Histo: CARDIAC STENTSX2 Smoking Status: Light Tobacco Smoker Alcohol Use: Occasionally General Adult EDM: Chief Complaint: Neck Pain HPI: HPI: Patient is a 74 year old female who presents with left neck swelling. Patient saw her primary care doctor for this on Thursday and at that time was started on doxycycline. She states that the initial swelling started on Thursday and was the size of the tip of her pinky. She states now it is much larger. She denies any shortness of breath or difficulty with swallowing or talking. She has not been having fevers, chills, sweats, nausea, vomiting. She is never had anything like this previously. I discussed the case with her primary care physician who has discussed it with Dr. Hagen the ENT physician. ENT felt like she was going to need IV antibiotics and sent her here for admission. Review of Systems: Review of Systems: General: Denies fever, chills, sweats, fatigue Eyes: Denies drainage, blurred vision, eye redness HENT: Denies rhinorrhea, sore throat, earache Respiratory: Denies cough, shortness of breath, wheezing Cardiac: Denies edema, palpitations, chest pain GI: Denies abdominal pain, Nausea, vomiting MSK: Denies back pain. Reports neck pain Skin: Denies rash, jaundice Neuro: Denies headache, dizziness Psychiatric: Denies SI/HI Heart Score: Risk Factors: Risk Factors: DM, Current or recent (<one month) smoker, HTN, HLP, family history of CAD, obesity. Risk Scores: Score 0 - 3: 2.5% MACE over next 6 weeks - Discharge Home Score 4 - 6: 20.3% MACE over next 6 weeks - Admit for Clinical Observation Score 7 - 10: 72.7% MACE over next 6 weeks - Early Invasive Strategies Current Medications: Current Medications Medications (Trade) Dose Ordered Sig/Gale Start Time Stop Time Status Last Admin Dose Admin Ceftriaxone Sodium (Rocephin) 1 gm 1X ONCE 03/01/20 17:00 03/01/20 17:01 DC Allergies: Allergies: Allergies Coded Allergies Type Severity Reaction Last Updated Verified ampicillin Allergy Intermediate 10/03/15 Yes cyclobenzaprine Allergy Intermediate 10/03/15 Yes latex Allergy Intermediate 10/03/15 Yes pravastatin Allergy Intermediate 08/13/17 Yes Physical Exam: PE: General: Awake, alert, NAD. Well Nourished, well hydrated. Cooperative HEENT: Atraumatic, EOMI, PERRL, airway patent, moist oral mucosa Neck: Supple, trachea midline, left 3x7cm area of swelling and induration with mild erythema Respiratory: CTA bilaterally, normal effort, no wheezing/crackles CV: RRR, no murmur, cap refill <2 GI: Soft, nondistended, nontender, no masses MSK: No obvious deformities Skin: Warm, dry, intact Neuro: A&O x3, speech NL, sensory and motor grossly intact, no focal deficits Psych: Normal affect, normal mood, not suicidal or homicidal Current Patient Data: Labs: Laboratory Tests Test 03/01/20 16:55 White Blood Count 9.4 x10^3/uL (4.0-11.0) Red Blood Count 4.01 x10^6/uL (3.50-5.40) Hemoglobin 12.5 g/dL (12.0-15.5) Hematocrit 36.9 % (36.0-47.0) Mean Corpuscular Volume 92 fL (79-100) Mean Corpuscular Hemoglobin 31 pg (25-35) Mean Corpuscular Hemoglobin Concent 34 g/dL (31-37) Red Cell Distribution Width 13.0 % (11.5-14.5) Platelet Count 203 x10^3/uL (140-400) Neutrophils (%) (Auto) 60 % (31-73) Lymphocytes (%) (Auto) 26 % (24-48) Monocytes (%) (Auto) 12 % (0-9) H Eosinophils (%) (Auto) 2 % (0-3) Basophils (%) (Auto) 1 % (0-3) Neutrophils # (Auto) 5.6 x10^3/uL (1.8-7.7) Lymphocytes # (Auto) 2.4 x10^3/uL (1.0-4.8) Monocytes # (Auto) 1.1 x10^3/uL (0.0-1.1) Eosinophils # (Auto) 0.2 x10^3/uL (0.0-0.7) Basophils # (Auto) 0.1 x10^3/uL (0.0-0.2) Sodium Level 141 mmol/L (136-145) Potassium Level 3.9 mmol/L (3.5-5.1) Chloride Level 99 mmol/L (98-107) Carbon Dioxide Level 35 mmol/L (21-32) H Anion Gap 7 (6-14) Blood Urea Nitrogen 16 mg/dL (7-20) Creatinine 1.0 mg/dL (0.6-1.0) Estimated GFR (Cockcroft-Gault) 54.3 Glucose Level 148 mg/dL (70-99) H Calcium Level 8.7 mg/dL (8.5-10.1) Laboratory Tests 03/01/20 16:55 Laboratory Tests 03/01/20 16:55 Vital Signs: Vital Signs Date Time Temp Pulse Resp B/P (MAP) Pulse Ox O2 Delivery O2 Flow Rate FiO2 03/01/20 16:34 98.8 79 20 146/73 (97) 93 Room Air 98.8 EKG: EKG: [] Radiology/Procedures: Radiology/Procedures: [] Course & Med Decision Making: Course & Med Decision Making Pertinent Labs and Imaging studies reviewed. (See chart for details) Patient is 74-year-old female who presents to the emergency room with a salivary gland infection. Patient was sent here for IV antibiotics. She will be admitted for further care by ENT and hospitalist. Hunter Disclaimer: Hunter Disclaimer: This electronic medical record was generated, in whole or in part, using a voice recognition dictation system. Departure Departure Impression: Primary Impression: Parotitis not due to mumps Disposition: ADMITTED INPATIENT Condition: STABLE Referrals: KHOA HYLTON MD (PCP) Justicifation of Admission Dx: Justifications for Admission: Justification of Admission Dx: Yes ROMINA ANTONY MD Mar 01, 2020 17:30
[2020-03-01 19:15] VITALS: BP 146/97
[2020-03-01] MEDS: MORPHINE SULFATE 2 MG/ML VIAL. IV PRN ×2 (19:31→23:43)
--- NOTE | 2020-03-01 20:20 | HP ---
ADMIT DATE: 03/01/2020 CHIEF COMPLAINT: Parotid infection. HISTORY OF PRESENT ILLNESS: The patient is a pleasant 74-year-old female who I think saw Dr. Meme Hagen of the ENT service today. She was told to go to the ER. We are going to admit the patient with infection to her parotid gland. We are going to be consulting Dr. Meme Hagen as I understood that she was going to see the patient in the morning. I discussed the case with ER physician. PAST MEDICAL HISTORY: Arthritis, CAD, GERD, hypertension, hyperlipidemia, chronic renal insufficiency, cholecystectomy, hysterectomy, tonsillectomy, cardiac stents, light tobacco smoker. ALLERGIES: AMPICILLIN, CYCLOBENZAPRINE, LATEX, AND PRAVASTATIN. FAMILY HISTORY: Coronary artery disease. SOCIAL HISTORY: She drinks. She smokes very lightly. No drinking or drugs. MEDICATIONS: Reviewed, please refer to the MRAD. REVIEW OF SYSTEMS: GENERAL: No history of weight change, weakness or fevers. SKIN: No bruising, hair changes or rashes. EYES: No blurred, double or loss of vision. HEENT: She complains of neck pain and carotid pain. HEART: No history of palpitations, chest pain or shortness of breath on exertion. LUNGS: Denies cough, hemoptysis, wheezing or shortness of breath. GASTROINTESTINAL: Denies changes in appetite, nausea, vomiting, diarrhea or constipation. GENITOURINARY: No history of frequency, urgency, hesitancy or nocturia. NEUROLOGIC: Denies history of numbness, tingling, tremor or weakness. PSYCHIATRIC: No history of panic, anxiety or depression. ENDOCRINE: No history of heat or cold intolerance, polyuria or polydipsia. EXTREMITIES: Denies muscle weakness, joint pain, pain on walking or stiffness. PHYSICAL EXAMINATION: VITALS: Within normal limits and are stable. GENERAL: No apparent distress. Alert and oriented. HEENT: The left carotid is swollen. EYES: Extraocular muscles are intact, pupils are equally round and reactive to light and accommodation MUSCULOSKELETAL: Well developed, well nourished, good range of motion ENDOCRINE: No thyromegaly was palpated LYMPHATICS: No cervical chain or axillary nodes were noted HEMATOPOIETIC: No bruising NECK: Supple, no JVD, no thyromegaly was noted. LUNGS: Clear to auscultation in all lung webb without rhonchi or wheezing. HEART: RRR, S1, S2 present. Peripheral pulses intact, no obvious murmurs were noted. ABDOMEN: Soft, nontender. Positive bowel sounds no organomegaly, normal bowel sounds. EXTREMITIES: Without any cyanosis, clubbing, or edema. Pedal pulses intact, Homans sign is negative. NEUROLOGIC: Normal speech, normal tone. A & O x3, moves all extremities, no obvious focal deficits. PSYCHIATRIC: Normal affect, normal mood. Stable. SKIN: No ulcerations or rashes, good skin turgor, no jaundice. VASCULAR: Good capillary refill, neurovascular bundle appears to be intact. LABORATORY DATA: White count is 9. Electrolytes are normal. ASSESSMENT AND PLAN: Parotid swelling, infection. The patient has been admitted. We will consult Meme Hagen MD, ENT p.r.n. morphine, IV ceftriaxone 1 gram every day. Home meds, DVT prophylaxis. Full code. ARA MATTHEW DO DR: SILVIANO/sam JOB#: [id number] / [id number]
[2020-03-01] MEDS ORDERED: METH-38 PO (21:01)
[2020-03-01] MEDS ORDERED: FLUT16SP NS (21:01)
[2020-03-01] MEDS ORDERED: RANO500T2 PO (21:01)
[2020-03-01] MEDS ORDERED: NITR0.4T22 SL (21:01)
[2020-03-01] MEDS ORDERED: HYDR-2759 PO (21:01)
[2020-03-01] MEDS ORDERED: CRESTOR40 MG PO (21:01)
[2020-03-01] MEDS ORDERED: SENN1TAB70 PO (21:01)
[2020-03-01] MEDS ORDERED: LOSA100T14 PO (21:01)
[2020-03-01] MEDS ORDERED: DIPH25CA58 PO (21:01)
[2020-03-01] MEDS ORDERED: FURO20TA3 PO (21:01)
[2020-03-01 23:00] VITALS: BP 140/63
[2020-03-02] VITALS (8 sets, daily range): BP systolic 101–196; BP diastolic 49–82
[2020-03-02] MEDS: MORPHINE SULFATE 2 MG/ML VIAL. IV PRN ×2 (03:37→12:55)
[2020-03-02] MEDS ORDERED: FLUTICASONE 50MCG/NASAL SPRAY 16GM BOTTLE. NS PRN (05:45)
[2020-03-02] MEDS ORDERED: NITROGLYCERIN SUBLINGUAL 0.4 MG BOTTLE OF 25. SL PRN (05:45)
[2020-03-02] MEDS ORDERED: diphenhydrAMINE HCL 25 MG CAPSULE PO PRN (05:45)
--- NOTE | 2020-03-02 08:53 | PDOC ---
PROGRESS NOTES Date of Service: DATE: 03/02/20 TIME: 08:51 Chief Complaint Chief Complaint ASSESSMENT AND PLAN: Parotid swelling, infection. morbid obesity admitted. consult Meme Hagen MD, ENT p.r.n. morphine, IV ceftriaxone 1 gram every day. Home meds, DVT prophylaxis. Full code. Vitals Vitals Vital Signs Date Time Temp Pulse Resp B/P (MAP) Pulse Ox O2 Delivery O2 Flow Rate FiO2 03/02/20 07:00 99.0 83 14 141/73 (95) 96 Nasal Cannula 2.0 99.0 Physical Exam Physical Exam HEENT: The left PAROTID is swollen., TENDERNESS SLOW TO RESOLVE EYES: Extraocular muscles are intact, pupils are equally round and reactive to light and accommodation MUSCULOSKELETAL: Well developed, well nourished, good range of motion ENDOCRINE: No thyromegaly was palpated LYMPHATICS: No cervical chain or axillary nodes were noted HEMATOPOIETIC: No bruising NECK: Supple, no JVD, no thyromegaly was noted. LUNGS: Clear to auscultation in all lung webb without rhonchi or wheezing. HEART: RRR, S1, S2 present. Peripheral pulses intact, no obvious murmurs were noted. ABDOMEN: Soft, nontender. Positive bowel sounds no organomegaly, normal bowel sounds. EXTREMITIES: Without any cyanosis, clubbing, or edema. Pedal pulses intact, Homans sign is negative. NEUROLOGIC: Normal speech, normal tone. A & O x3, moves all extremities, no obvious focal deficits. PSYCHIATRIC: Normal affect, normal mood. Stable. SKIN: No ulcerations or rashes, good skin turgor, no jaundice. VASCULAR: Good capillary refill, neurovascular bundle appears to be intact. General: Alert, Oriented X3, Cooperative, No acute distress Lungs: Clear Abdomen: Normal bowel sounds, Soft Extremities: No cyanosis, No edema Labs LABS EYES: Extraocular muscles are intact, pupils are equally round and reactive to light and accommodation MUSCULOSKELETAL: Well developed, well nourished, good range of motion ENDOCRINE: No thyromegaly was palpated LYMPHATICS: No cervical chain or axillary nodes were noted HEMATOPOIETIC: No bruising NECK: Supple, no JVD, no thyromegaly was noted. LUNGS: Clear to auscultation in all lung webb without rhonchi or wheezing. HEART: RRR, S1, S2 present. Peripheral pulses intact, no obvious murmurs were noted. ABDOMEN: Soft, nontender. Positive bowel sounds no organomegaly, normal bowel sounds. EXTREMITIES: Without any cyanosis, clubbing, or edema. Pedal pulses intact, Homans sign is negative. NEUROLOGIC: Normal speech, normal tone. A & O x3, moves all extremities, no obvious focal deficits. PSYCHIATRIC: Normal affect, normal mood. Stable. SKIN: No ulcerations or rashes, good skin turgor, no jaundice. VASCULAR: Good capillary refill, neurovascular bundle appears to be intact. Laboratory Tests Test 03/01/20 16:55 White Blood Count 9.4 x10^3/uL (4.0-11.0) Red Blood Count 4.01 x10^6/uL (3.50-5.40) Hemoglobin 12.5 g/dL (12.0-15.5) Hematocrit 36.9 % (36.0-47.0) Mean Corpuscular Volume 92 fL (79-100) Mean Corpuscular Hemoglobin 31 pg (25-35) Mean Corpuscular Hemoglobin Concent 34 g/dL (31-37) Red Cell Distribution Width 13.0 % (11.5-14.5) Platelet Count 203 x10^3/uL (140-400) Neutrophils (%) (Auto) 60 % (31-73) Lymphocytes (%) (Auto) 26 % (24-48) Monocytes (%) (Auto) 12 % (0-9) Eosinophils (%) (Auto) 2 % (0-3) Basophils (%) (Auto) 1 % (0-3) Neutrophils # (Auto) 5.6 x10^3/uL (1.8-7.7) Lymphocytes # (Auto) 2.4 x10^3/uL (1.0-4.8) Monocytes # (Auto) 1.1 x10^3/uL (0.0-1.1) Eosinophils # (Auto) 0.2 x10^3/uL (0.0-0.7) Basophils # (Auto) 0.1 x10^3/uL (0.0-0.2) Sodium Level 141 mmol/L (136-145) Potassium Level 3.9 mmol/L (3.5-5.1) Chloride Level 99 mmol/L (98-107) Carbon Dioxide Level 35 mmol/L (21-32) Anion Gap 7 (6-14) Blood Urea Nitrogen 16 mg/dL (7-20) Creatinine 1.0 mg/dL (0.6-1.0) Estimated GFR (Cockcroft-Gault) 54.3 Glucose Level 148 mg/dL (70-99) Calcium Level 8.7 mg/dL (8.5-10.1) Assessment and Plan Assessmemt and Plan Problems Medical Problems: (1) Parotitis not due to mumps Status: Acute Comment Review of Relevant I have reviewed the following items sarah (where applicable) has been applied. Labs Laboratory Tests Test 03/01/20 16:55 White Blood Count 9.4 x10^3/uL (4.0-11.0) Red Blood Count 4.01 x10^6/uL (3.50-5.40) Hemoglobin 12.5 g/dL (12.0-15.5) Hematocrit 36.9 % (36.0-47.0) Mean Corpuscular Volume 92 fL (79-100) Mean Corpuscular Hemoglobin 31 pg (25-35) Mean Corpuscular Hemoglobin Concent 34 g/dL (31-37) Red Cell Distribution Width 13.0 % (11.5-14.5) Platelet Count 203 x10^3/uL (140-400) Neutrophils (%) (Auto) 60 % (31-73) Lymphocytes (%) (Auto) 26 % (24-48) Monocytes (%) (Auto) 12 % (0-9) Eosinophils (%) (Auto) 2 % (0-3) Basophils (%) (Auto) 1 % (0-3) Neutrophils # (Auto) 5.6 x10^3/uL (1.8-7.7) Lymphocytes # (Auto) 2.4 x10^3/uL (1.0-4.8) Monocytes # (Auto) 1.1 x10^3/uL (0.0-1.1) Eosinophils # (Auto) 0.2 x10^3/uL (0.0-0.7) Basophils # (Auto) 0.1 x10^3/uL (0.0-0.2) Sodium Level 141 mmol/L (136-145) Potassium Level 3.9 mmol/L (3.5-5.1) Chloride Level 99 mmol/L (98-107) Carbon Dioxide Level 35 mmol/L (21-32) Anion Gap 7 (6-14) Blood Urea Nitrogen 16 mg/dL (7-20) Creatinine 1.0 mg/dL (0.6-1.0) Estimated GFR (Cockcroft-Gault) 54.3 Glucose Level 148 mg/dL (70-99) Calcium Level 8.7 mg/dL (8.5-10.1) Laboratory Tests Test 03/01/20 16:55 White Blood Count 9.4 x10^3/uL (4.0-11.0) Red Blood Count 4.01 x10^6/uL (3.50-5.40) Hemoglobin 12.5 g/dL (12.0-15.5) Hematocrit 36.9 % (36.0-47.0) Mean Corpuscular Volume 92 fL (79-100) Mean Corpuscular Hemoglobin 31 pg (25-35) Mean Corpuscular Hemoglobin Concent 34 g/dL (31-37) Red Cell Distribution Width 13.0 % (11.5-14.5) Platelet Count 203 x10^3/uL (140-400) Neutrophils (%) (Auto) 60 % (31-73) Lymphocytes (%) (Auto) 26 % (24-48) Monocytes (%) (Auto) 12 % (0-9) Eosinophils (%) (Auto) 2 % (0-3) Basophils (%) (Auto) 1 % (0-3) Neutrophils # (Auto) 5.6 x10^3/uL (1.8-7.7) Lymphocytes # (Auto) 2.4 x10^3/uL (1.0-4.8) Monocytes # (Auto) 1.1 x10^3/uL (0.0-1.1) Eosinophils # (Auto) 0.2 x10^3/uL (0.0-0.7) Basophils # (Auto) 0.1 x10^3/uL (0.0-0.2) Sodium Level 141 mmol/L (136-145) Potassium Level 3.9 mmol/L (3.5-5.1) Chloride Level 99 mmol/L (98-107) Carbon Dioxide Level 35 mmol/L (21-32) Anion Gap 7 (6-14) Blood Urea Nitrogen 16 mg/dL (7-20) Creatinine 1.0 mg/dL (0.6-1.0) Estimated GFR (Cockcroft-Gault) 54.3 Glucose Level 148 mg/dL (70-99) Calcium Level 8.7 mg/dL (8.5-10.1) Medications Current Medications Ceftriaxone Sodium (Rocephin) 1 gm 1X ONCE IVP Last administered on 03/01/20at 17:26; Start 03/01/20 at 17:00; Stop 03/01/20 at 17:01; Status DC Morphine Sulfate (Morphine Sulfate) 2 mg PRN Q2HR PRN IV PAIN Last administered on 03/02/20at 03:37; Start 03/01/20 at 19:30 Ceftriaxone Sodium (Rocephin) 1 gm Q24H IVP ; Start 03/02/20 at 17:00 Aspirin (Ecotrin) 325 mg DAILYWBKFT PO ; Start 03/02/20 at 08:00 Carvedilol (Coreg) 6.25 mg BIDWMEALS PO ; Start 03/02/20 at 08:00 Vitamin D (Vitamin D3) 2,000 unit DAILY PO ; Start 03/02/20 at 09:00 Citalopram Hydrobromide (CeleXA) 10 mg DAILY PO ; Start 03/02/20 at 09:00 Clopidogrel Bisulfate (Plavix) 75 mg DAILYWBKFT PO ; Start 03/02/20 at 08:00 Cyanocobalamin (Vitamin B-12) 5,000 mcg DAILY PO ; Start 03/02/20 at 09:00 Diphenhydramine HCl (Benadryl) 25 mg PRN DAILY PRN PO ALLERGIES; Start 03/02/20 at 05:45 Fluticasone Propionate (Flonase) 2 spray PRN DAILY PRN NS CONGESTION; Start 03/02/20 at 05:45 Furosemide (Lasix) 20 mg DAILY PO ; Start 03/02/20 at 09:00 Ipratropium [place] (Atrovent) 0.2 mg Q8HRS IH ; Start 03/02/20 at 06:00 Methocarbamol (Robaxin) 500 mg DAILY PO ; Start 03/02/20 at 09:00 Nitroglycerin (Nitrostat) 0.4 mg PRN Q5MIN PRN SL CHEST PAIN; Start 03/02/20 at 05:45 Ranolazine (Ranexa) 500 mg BID PO ; Start 03/02/20 at 09:00 Senna/Docusate Sodium (Senna Plus) 1 tab DAILY PO ; Start 03/02/20 at 09:00 Trazodone HCl (Desyrel) 100 mg QHS PO ; Start 03/02/20 at 21:00 Atorvastatin Calcium (Lipitor) 80 mg QHS PO ; Start 03/02/20 at 21:00 Gabapentin (Neurontin) 600 mg TID PO ; Start 03/02/20 at 09:00 Losartan Potassium (Cozaar) 100 mg DAILY PO ; Start 03/02/20 at 09:00 Pantoprazole Sodium (Protonix) 40 mg DAILYAC PO ; Start 03/02/20 at 07:30 Non-Formulary Medication (Rosuvastatin Calcium (Crestor)) 1 tab DAILY PO ; Start 03/02/20 at 09:00; Status UNV Acetaminophen/ Hydrocodone Bitart (Lortab 5/325) 1 tab PRN Q4HRS PRN PO MODERATE PAIN 4-6; Start 03/02/20 at 05:45 Active Scripts Active Aspirin Ec (Aspirin) 325 Mg Tablet.dr 325 Mg PO DAILYWBKFT Clopidogrel (Clopidogrel Bisulfate) 75 Mg Tablet 75 Mg PO DAILYWBKFT Reported Stool Softener Tablet (Sennosides/Docusate Sodium) 1 Each Tablet 1 Each PO DAILY NITROGLYCERIN SubLingual (Nitroglycerin) 0.4 Mg Tab.subl 0.4 Mg SL PRN Q5MIN PRN Benadryl (Diphenhydramine Hcl) 25 Mg Capsule 1 Cap PO DAILY PRN 30 Days Fluticasone Propionate Nasal [place] (Fluticasone Propionate) 16 Gm [place].susp 2 [place] NS DAILY PRN Crestor (Rosuvastatin Calcium) 40 Mg Tablet 1 Tab PO DAILY Ranexa (Ranolazine) 500 Mg Tab.er.12h 1 Tab PO BID 30 Days Robaxin-750 (Methocarbamol) 750 Mg Tablet 500 Mg PO DAILY 30 Days Hydrocodone-Acetamin 5-325 mg (Hydrocodone/Acetaminophen) 1 Each Tablet 1 Each PO Q4HRS PRN Furosemide 20 Mg Tablet 1 Tab PO DAILY Citalopram Hbr (Citalopram Hydrobromide) 10 Mg Tablet 10 Mg PO DAILY Losartan Potassium 100 Mg Tablet 100 Mg PO DAILY Ipratropium [place] 0.2 Mg/1 Ml Solution 0.2 Mg IH Q8HRS Spiriva (Tiotropium [place]) 18 Mcg Cap.w.dev 1 Cap IH DAILY Carvedilol (Carvedilol) 6.25 Mg Tablet 1 Tab PO BID Vitamin D3 (Cholecalciferol (Vitamin D3)) 1,000 Unit Tablet 2,000 Unit PO DAILY Vitamin B-12 (Cyanocobalamin (Vitamin B-12)) 1,000 Mcg Tablet 5,000 Mcg PO DAILY Omeprazole 40 Mg Capsule.dr 40 Mg PO DAILY Atorvastatin Calcium 80 Mg Tablet 80 Mg PO HS Trazodone Hcl 100 Mg Tablet 1 Tab PO QHS Gabapentin 600 Mg Tablet 600 Mg PO TID Vitals/I & O Vital Sign - Last 24 Hours 03/01/20 03/01/20 03/01/20 03/01/20 16:34 17:28 17:58 18:28 Temp 98.8 98.8 Pulse 79 76 76 76 Resp 20 18 20 20 B/P (MAP) 146/73 (97) 202/83 (122) 176/88 (117) 202/105 (137) Pulse Ox 93 90 91 O2 Delivery Room Air 03/01/20 03/01/20 03/01/20 03/01/20 19:15 19:31 20:00 20:01 Temp 99.4 99.4 Pulse 84 Resp 18 20 18 B/P (MAP) 146/97 (113) Pulse Ox 96 93 93 O2 Delivery Nasal Cannula Nasal Cannula O2 Flow Rate 2.0 03/01/20 03/01/20 03/02/20 03/02/20 23:00 23:43 00:13 03:00 Temp 99.3 99.2 99.3 99.2 Pulse 83 85 Resp 16 16 18 16 B/P (MAP) 140/63 (88) 128/62 (84) Pulse Ox 96 93 93 94 O2 Delivery Nasal Cannula Nasal Cannula O2 Flow Rate 2.0 03/02/20 03/02/20 03/02/20 03:37 04:07 07:00 Temp 99.0 99.0 Pulse 83 Resp 18 16 14 B/P (MAP) 141/73 (95) Pulse Ox 93 93 96 O2 Delivery Nasal Cannula Nasal Cannula Nasal Cannula O2 Flow Rate 2.0 2.0 2.0 Intake and Output 03/01/20 03/01/20 03/02/20 15:00 23:00 07:00 Intake Total 300 ml Balance 300 ml Justicifation of Admission Dx: Justifications for Admission: Justification of Admission Dx: Yes DANIELLE PARKER MD Mar 02, 2020 08:53
[2020-03-02] MEDS: RANOLAZINE 500 MG TAB.ER.12H PO SCH ×2 (09:00→21:00)
[2020-03-02] MEDS ORDERED: NON FORMULARY ITEM (Rosuvastatin Calcium (Crestor) 1 TAB) PO SCH (09:00)
--- NOTE | 2020-03-02 09:00 | NUR ---
Patient refused med : Ranexa. Patient is upset that the ENT DRRinku has not arrived. Patient threaten to leave because she believes she has been at [facility] for two days. Patient arrived to [facility] last night. Patient's family member stated that she tends to be forgetful.
[2020-03-02] MEDS: CHOLECALCIFEROL (VITAMIN D3) 1,000 UNIT TABLET PO SCH (09:02)
[2020-03-02] MEDS: SENNOSIDES/DOCUSATE 8.6/50MG TABLET. PO SCH (09:02)
[2020-03-02] MEDS: GABAPENTIN 300 MG CAPSULE. PO SCH ×3 (09:02→22:53)
[2020-03-02] MEDS: CYANOCOBALAMIN (VITAMIN B-12) 1,000 MCG TABLET. PO SCH (09:02)
[2020-03-02] MEDS: ASPIRIN ENTERIC COATED 325 MG TABLET.DR. PO SCH (09:03)
[2020-03-02] MEDS: FUROSEMIDE 20 MG TABLET PO SCH (09:03)
[2020-03-02] MEDS: LOSARTAN POTASSIUM 50 MG TABLET. PO SCH (09:03)
[2020-03-02] MEDS: CITALOPRAM 10 MG TABLET. PO SCH (09:04)
[2020-03-02] MEDS: CARVEDILOL 6.25 MG TABLET. PO SCH ×2 (09:04→17:07)
[2020-03-02] MEDS: CLOPIDOGREL BISULFATE 75 MG TABLET PO SCH (09:04)
[2020-03-02] MEDS: HYDROcodone/APAP 5/325MG 1 TAB TABLET PO PRN ×2 (09:06→23:17)
[2020-03-02] MEDS: IPRATROPIUM BROMIDE 0.5 MG/2.5 ML NEBU. IH SCH ×2 (09:26→16:30)
--- NOTE | 2020-03-02 10:10 | NUR ---
SW following. Discussed with RN, pt from home with sister, toño diet, 2L o2 at night - has at home. Consult for Meme Hagen ENT. SW will continue to follow.
[2020-03-02] MEDS: PANTOPRAZOLE 40 MG TABLET.DR. PO SCH (12:55)
[2020-03-02] MEDS: METHOCARBAMOL 500 MG TABLET PO SCH (12:55)
--- NOTE | 2020-03-02 15:41 | PDOC2 ---
CONSULT Date of Consult Date of Consult DATE: 03/02/20 TIME: 15:40 Reason for Consult Reason for Consult: left parotid sialoadenitis Referring Physician Referring Physician: Dr. Chowdary Identification/Chief Complaint Chief Complaint left parotid sialoadenitis Source Source: Patient History of Present Illness Reason for Visit: 74 year old female was admitted last night for IV antibiotics in treatment of left parotid sialoadenitis. Patient reports that she began to have swelling of left neck on Thursday, 24 February. She was seen by PCP earlier this week and prescribed doxycycline. She reports that pain and swelling continued to worsen. She underwent CT imaging yesterday which showed enlarged lymph node posterior left parotid gland and inflammation of parotid gland. No fluid collection or abscess. She was started on IV Rocephin. Patient reports minimal improvement in symptoms Past Medical History Cardiovascular: CAD, HTN, HI, Hyperlipidemia Pulmonary: Asthma, COPD CENTRAL NERVOUS SYSTEM: Other GI: GERD Heme/Onc: No pertinent hx Hepatobiliary: No pertinent hx Psych: No pertinent hx Musculoskeletal: No pain Rheumatologic: No pertinent hx Infectious disease: No pertinent hx Renal/: Chronic renal insuff Endocrine: No pertinent hx Past Surgical History Past Surgical History: Appendectomy, Cholecystectomy, Tonsillectomy, Hysterectomy Family History Family History: High Cholestrol Social History <1 pack per day ALCOHOL: social Drugs: None Lives: with Family Current Problem List Problem List Problems Medical Problems: (1) Parotitis not due to mumps Status: Acute Current Medications Current Medications Current Medications Ceftriaxone Sodium (Rocephin) 1 gm 1X ONCE IVP Last administered on 03/01/20at 17:26; Start 03/01/20 at 17:00; Stop 03/01/20 at 17:01; Status DC Morphine Sulfate (Morphine Sulfate) 2 mg PRN Q2HR PRN IV PAIN Last administered on 03/02/20at 12:55; Start 03/01/20 at 19:30 Ceftriaxone Sodium (Rocephin) 1 gm Q24H IVP ; Start 03/02/20 at 17:00 Aspirin (Ecotrin) 325 mg DAILYWBKFT PO Last administered on 03/02/20at 09:03; Start 03/02/20 at 08:00 Carvedilol (Coreg) 6.25 mg BIDWMEALS PO Last administered on 03/02/20at 09:04; Start 03/02/20 at 08:00 Vitamin D (Vitamin D3) 2,000 unit DAILY PO Last administered on 03/02/20at 0 9:02; Start 03/02/20 at 09:00 Citalopram Hydrobromide (CeleXA) 10 mg DAILY PO Last administered on 03/02/20at 09:04; Start 03/02/20 at 09:00 Clopidogrel Bisulfate (Plavix) 75 mg DAILYWBKFT PO Last administered on 03/02/20at 09:04; Start 03/02/20 at 08:00 Cyanocobalamin (Vitamin B-12) 5,000 mcg DAILY PO Last administered on 03/02/20at 09:02; Start 03/02/20 at 09:00 Diphenhydramine HCl (Benadryl) 25 mg PRN DAILY PRN PO ALLERGIES; Start 03/02/20 at 05:45 Fluticasone Propionate (Flonase) 2 spray PRN DAILY PRN NS CONGESTION; Start 03/02/20 at 05:45 Furosemide (Lasix) 20 mg DAILY PO Last administered on 03/02/20at 09:03; Start 03/02/20 at 09:00 Ipratropium [place] (Atrovent) 0.2 mg Q8HRS IH ; Start 03/02/20 at 06:00 Methocarbamol (Robaxin) 500 mg DAILY PO Last administered on 03/02/20at 12:55; Start 03/02/20 at 09:00 Nitroglycerin (Nitrostat) 0.4 mg PRN Q5MIN PRN SL CHEST PAIN; Start 03/02/20 at 05:45 Ranolazine (Ranexa) 500 mg BID PO ; Start 03/02/20 at 09:00 Senna/Docusate Sodium (Senna Plus) 1 tab DAILY PO Last administered on 03/02/20at 09:02; Start 03/02/20 at 09:00 Trazodone HCl (Desyrel) 100 mg QHS PO ; Start 03/02/20 at 21:00 Atorvastatin Calcium (Lipitor) 80 mg QHS PO ; Start 03/02/20 at 21:00 Gabapentin (Neurontin) 600 mg TID PO Last administered on 03/02/20at 14:30; Start 03/02/20 at 09:00 Losartan Potassium (Cozaar) 100 mg DAILY PO Last administered on 03/02/20at 09:03; Start 03/02/20 at 09:00 Pantoprazole Sodium (Protonix) 40 mg DAILYAC PO Last administered on 03/02/20at 12:55; Start 03/02/20 at 07:30 Non-Formulary Medication (Rosuvastatin Calcium (Crestor)) 1 tab DAILY PO ; Start 03/02/20 at 09:00; Status UNV Acetaminophen/ Hydrocodone Bitart (Lortab 5/325) 1 tab PRN Q4HRS PRN PO MODERATE PAIN 4-6 Last administered on 03/02/20at 09:06; Start 03/02/20 at 05:45 Lactobacillus Rhamnosus (Culturelle) 1 cap BID PO ; Start 03/02/20 at 21:00 Active Scripts Active Aspirin Ec (Aspirin) 325 Mg Tablet.dr 325 Mg PO DAILYWBKFT Clopidogrel (Clopidogrel Bisulfate) 75 Mg Tablet 75 Mg PO DAILYWBKFT Reported Stool Softener Tablet (Sennosides/Docusate Sodium) 1 Each Tablet 1 Each PO DAILY NITROGLYCERIN SubLingual (Nitroglycerin) 0.4 Mg Tab.subl 0.4 Mg SL PRN Q5MIN PRN Benadryl (Diphenhydramine Hcl) 25 Mg Capsule 1 Cap PO DAILY PRN 30 Days Fluticasone Propionate Nasal [place] (Fluticasone Propionate) 16 Gm [place].susp 2 [place] NS DAILY PRN Crestor (Rosuvastatin Calcium) 40 Mg Tablet 1 Tab PO DAILY Ranexa (Ranolazine) 500 Mg Tab.er.12h 1 Tab PO BID 30 Days Robaxin-750 (Methocarbamol) 750 Mg Tablet 500 Mg PO DAILY 30 Days Hydrocodone-Acetamin 5-325 mg (Hydrocodone/Acetaminophen) 1 Each Tablet 1 Each PO Q4HRS PRN Furosemide 20 Mg Tablet 1 Tab PO DAILY Citalopram Hbr (Citalopram Hydrobromide) 10 Mg Tablet 10 Mg PO DAILY Losartan Potassium 100 Mg Tablet 100 Mg PO DAILY Ipratropium [place] 0.2 Mg/1 Ml Solution 0.2 Mg IH Q8HRS Spiriva (Tiotropium [place]) 18 Mcg Cap.w.dev 1 Cap IH DAILY Carvedilol (Carvedilol) 6.25 Mg Tablet 1 Tab PO BID Vitamin D3 (Cholecalciferol (Vitamin D3)) 1,000 Unit Tablet 2,000 Unit PO DAILY Vitamin B-12 (Cyanocobalamin (Vitamin B-12)) 1,000 Mcg Tablet 5,000 Mcg PO DAILY Omeprazole 40 Mg Capsule.dr 40 Mg PO DAILY Atorvastatin Calcium 80 Mg Tablet 80 Mg PO HS Trazodone Hcl 100 Mg Tablet 1 Tab PO QHS Gabapentin 600 Mg Tablet 600 Mg PO TID Allergies Allergies: Coded Allergies: ampicillin (Verified Allergy, Intermediate, 10/03/15) cyclobenzaprine (Verified Allergy, Intermediate, 10/03/15) dexamethasone (Verified Allergy, Intermediate, 03/02/20) HEADACHE latex (Verified Allergy, Intermediate, 10/03/15) pravastatin (Verified Allergy, Intermediate, 08/13/17) albuterol (Verified Allergy, Mild, 03/01/20) CAN TOLERATE SMALL AMOUNTS/PT ROS General: No: Chills, Night Sweats, Fatigue, Malaise, Appetite, Other PSYCHOLOGICAL ROS: No: Anxiety, Behavioral Disorder, Concentration difficultie, Decreased libido, Depression, Disorientation, Hallucinations, Hostility, Irritablity, Memory difficulties, Mood Swings, Obsessive thoughts, Physical abuse, Sexual abuse, Sleep disturbances, Suicidal ideation, Other Eyes: No Blurry vision, No Decreased vision, No Double vision, No Dry eyes, No Excessive tearing, No Eye Pain, No Itchy Eyes, No Loss of vision, No Photophobia, No Scotomata, No Uses contacts, No Uses glasses, No Other HEENT: YES: Heacaches; No: Visual Changes, Hearing change, Nasal congestion, Nasal discharge, Oral lesions, Sinus pain, Sore Throat, Epistaxis, Sneezing, Snoring, Tinnitus, Vertigo, Vocal changes, Other ALLERGY AND IMMUNOLOGY: No: Hives, Insect Bite Sensitivity, Itchy/Watery Eyes, Nasal Congestion, Post Nasal Drip, Seasonal Allergies, Other Hematological and Lymphatic: YES: Swollen Lymph Nodes; No: Bleeding Problems, Blood Clots, Blood Transfusions, Brusing, Night Sweats, Pallor, Other Respiratory: No: Cough, Hemoptysis, Orthopnea, Pleuritic Pain, Shortness of breath, SOB with excertion, Sputum Changes, Stridor, Tachypnea, Wheezing, Other Cardiovascular: No Chest Pain, No Palpitations, No Orthopnea, No Paroxysmal No c. Dyspnea, No Edema, No Lt Headedness, No Other Musculoskeletal: Yes Swelling In: (left neck) Neurological: No Behavorial Changes, No Bowel/Bladder ControlChng, No Confusion, No Dizziness, No Gait Disturbance, No Headaches, No Impaired Coord/balance, No Memory Loss, No Numbness/Tingling, No Seizures, No Speech Problems, No Tremors, No Visual Changes, No Weakness, No Other Physical Exam General: Alert, Oriented X3, Cooperative, No acute distress HEENT: Atraumatic, PERRLA, EOMI, Other (Ears: normal tympanic membranes and ear canals bilaterally; Nasal Cavity: Normal; Oral Cavity: fair dentition, no trismus, normal tongue, Stensen's duct with no visible saliva on left, no palpable stone; Neck: diffuse swelling of left parotid, tender to palpation, no sam abscess ) Lungs: Clear to auscultation, Normal air movement Heart: Regular rate Extremities: No clubbing, No cyanosis, No edema Skin: No rashes Neuro: Normal gait, Normal speech, Cranial nerves 3-12 NL Psych/Mental Status: Mental status NL, Mood NL Vitals VITALS Vital Signs Date Time Temp Pulse Resp B/P (MAP) Pulse Ox O2 Delivery O2 Flow Rate FiO2 03/02/20 13:42 16 03/02/20 11:24 99.1 77 124/60 (81) 97 Nasal Cannula 2.0 99.1 Labs Labs Laboratory Tests Test 03/01/20 16:55 White Blood Count 9.4 x10^3/uL (4.0-11.0) Red Blood Count 4.01 x10^6/uL (3.50-5.40) Hemoglobin 12.5 g/dL (12.0-15.5) Hematocrit 36.9 % (36.0-47.0) Mean Corpuscular Volume 92 fL (79-100) Mean Corpuscular Hemoglobin 31 pg (25-35) Mean Corpuscular Hemoglobin Concent 34 g/dL (31-37) Red Cell Distribution Width 13.0 % (11.5-14.5) Platelet Count 203 x10^3/uL (140-400) Neutrophils (%) (Auto) 60 % (31-73) Lymphocytes (%) (Auto) 26 % (24-48) Monocytes (%) (Auto) 12 % (0-9) Eosinophils (%) (Auto) 2 % (0-3) Basophils (%) (Auto) 1 % (0-3) Neutrophils # (Auto) 5.6 x10^3/uL (1.8-7.7) Lymphocytes # (Auto) 2.4 x10^3/uL (1.0-4.8) Monocytes # (Auto) 1.1 x10^3/uL (0.0-1.1) Eosinophils # (Auto) 0.2 x10^3/uL (0.0-0.7) Basophils # (Auto) 0.1 x10^3/uL (0.0-0.2) Sodium Level 141 mmol/L (136-145) Potassium Level 3.9 mmol/L (3.5-5.1) Chloride Level 99 mmol/L (98-107) Carbon Dioxide Level 35 mmol/L (21-32) Anion Gap 7 (6-14) Blood Urea Nitrogen 16 mg/dL (7-20) Creatinine 1.0 mg/dL (0.6-1.0) Estimated GFR (Cockcroft-Gault) 54.3 Glucose Level 148 mg/dL (70-99) Calcium Level 8.7 mg/dL (8.5-10.1) Laboratory Tests Test 03/01/20 16:55 White Blood Count 9.4 x10^3/uL (4.0-11.0) Red Blood Count 4.01 x10^6/uL (3.50-5.40) Hemoglobin 12.5 g/dL (12.0-15.5) Hematocrit 36.9 % (36.0-47.0) Mean Corpuscular Volume 92 fL (79-100) Mean Corpuscular Hemoglobin 31 pg (25-35) Mean Corpuscular Hemoglobin Concent 34 g/dL (31-37) Red Cell Distribution Width 13.0 % (11.5-14.5) Platelet Count 203 x10^3/uL (140-400) Neutrophils (%) (Auto) 60 % (31-73) Lymphocytes (%) (Auto) 26 % (24-48) Monocytes (%) (Auto) 12 % (0-9) Eosinophils (%) (Auto) 2 % (0-3) Basophils (%) (Auto) 1 % (0-3) Neutrophils # (Auto) 5.6 x10^3/uL (1.8-7.7) Lymphocytes # (Auto) 2.4 x10^3/uL (1.0-4.8) Monocytes # (Auto) 1.1 x10^3/uL (0.0-1.1) Eosinophils # (Auto) 0.2 x10^3/uL (0.0-0.7) Basophils # (Auto) 0.1 x10^3/uL (0.0-0.2) Sodium Level 141 mmol/L (136-145) Potassium Level 3.9 mmol/L (3.5-5.1) Chloride Level 99 mmol/L (98-107) Carbon Dioxide Level 35 mmol/L (21-32) Anion Gap 7 (6-14) Blood Urea Nitrogen 16 mg/dL (7-20) Creatinine 1.0 mg/dL (0.6-1.0) Estimated GFR (Cockcroft-Gault) 54.3 Glucose Level 148 mg/dL (70-99) Calcium Level 8.7 mg/dL (8.5-10.1) Images Images CT Neck (03/01/2020): 1. There is enlarged node versus mass along the posterior aspect of the superficial left parotid gland. Imaging cannot reliably distinguish benign versus malignant etiologies. There is also inflammatory change associated with the left parotid gland suggestive of parotiditis. There are some small nodes or nodules of the superficial right parotid gland. 2. There is degenerative disc disease and spondylosis of the cervical spine greatest at C5-6 and C6-7 at which there is spinal stenosis greatest at C5-6. Uncovertebral degenerative change contributes to neural foramina compromise greatest bilaterally at C5-6. 3. There are bilateral thyroid nodules. Assessment/Plan Assessment/Plan 74 year old female with left parotid sialoadenitis that was refractory to oral antibiotics. Patient was admitted last night for IV antibiotics. Minimal improvement thus far but less than [address] imaging done yesterday did not show any abscess or other etiology that would require surgery at this time. - Discussed sialogogues with patient and family member. Family member to go to store and obtain sour candies. - Encouraged adequate hydration. - Ceftriaxone unlikely to be adequate alone due to less coverage of Gram positive organisms and oral anaerobes. Although, adequate gram negative coverage seen. Consider changing regimen to cefuroxime 1.5gm every 8 hours plus metronizadole 500mg IV q 8 hours since patient has allergy to ampicillin. - Also consider starting solumedrol IV to help relieve swelling-- although this addition will not allow us to monitor wbc - If not clinically improved, we can consider repeat CT imaging on Thursday to evaluate for abscess development. FLOYD PALMA MD Mar 02, 2020 15:41
[2020-03-02] MEDS: cefTRIAXone IV Push 1 GM VIAL. IVP SCH (17:07)
--- NOTE | 2020-03-02 17:20 | NUR ---
Patient was walked to the bathroom by family member. Patient stated that her knees buckled and she fell back on her family member, and the family member slide her down to the ground. Patient denies any injuries. Patient doesn't complain of any pain. PABLITO Corona obtain vitals post-fall : 196/82 hr 89 o2 92%. There were no visible injuries. Patient was assisted to the bed and the bed alarm was put on. Family member present. Dr. Davila was paged regarding the fall.
[2020-03-02] MEDS ORDERED: hydrALAZINE 20 MG/ML VIAL. IVP PRN (17:30)
[2020-03-02] MEDS: CARVEDILOL 12.5 MG TABLET. PO SCH (17:43)
--- NOTE | 2020-03-02 18:30 | NUR ---
Patient BP 122/55 HR 99 - 1hr after medication administration. Patient is experiencing no pain at this time.
[2020-03-02] MEDS ORDERED: IPRATROPIUM BROMIDE 0.5 MG/2.5 ML NEBU. IH PRN (22:00)
[2020-03-02] MEDS: ATORVASTATIN CALCIUM 40 MG TABLET. PO SCH (22:53)
[2020-03-02] MEDS: LACTOBACILLUS RHAMNOSUS GG 1 CAPSULE. PO SCH (22:53)
[2020-03-02] MEDS: traZODone 100 MG TABLET. PO SCH (22:53)
[2020-03-03] VITALS (7 sets, daily range): BP systolic 91–131; BP diastolic 45–67
[2020-03-03] MEDS: PANTOPRAZOLE 40 MG TABLET.DR. PO SCH (08:06)
[2020-03-03] MEDS: LACTOBACILLUS RHAMNOSUS GG 1 CAPSULE. PO SCH ×2 (08:06→21:38)
[2020-03-03] MEDS: ASPIRIN ENTERIC COATED 325 MG TABLET.DR. PO SCH (08:07)
[2020-03-03] MEDS: CARVEDILOL 12.5 MG TABLET. PO SCH ×2 (08:13→17:11)
[2020-03-03] MEDS: HYDROcodone/APAP 5/325MG 1 TAB TABLET PO PRN (08:35)
[2020-03-03] MEDS: CLOPIDOGREL BISULFATE 75 MG TABLET PO SCH (08:35)
[2020-03-03] MEDS: CHOLECALCIFEROL (VITAMIN D3) 1,000 UNIT TABLET PO SCH (08:36)
[2020-03-03] MEDS: SENNOSIDES/DOCUSATE 8.6/50MG TABLET. PO SCH (08:37)
[2020-03-03] MEDS: CITALOPRAM 10 MG TABLET. PO SCH (08:37)
[2020-03-03] MEDS: GABAPENTIN 300 MG CAPSULE. PO SCH ×3 (08:38→21:37)
[2020-03-03] MEDS: FUROSEMIDE 20 MG TABLET PO SCH (08:38)
[2020-03-03] MEDS: METHOCARBAMOL 500 MG TABLET PO SCH (08:38)
[2020-03-03] MEDS: LOSARTAN POTASSIUM 50 MG TABLET. PO SCH (08:39)
[2020-03-03] MEDS: RANOLAZINE 500 MG TAB.ER.12H PO SCH ×2 (08:40→21:37)
--- NOTE | 2020-03-03 09:23 | PDOC ---
Date of Service: DATE: 03/03/20 TIME: 09:17 Subjective: Subjective: 74 year old female admitted for left parotid sialoadenitis. Lymph node enlargement seen on CT imaging. Patient reports still having significant pain and discomfort. No significant improvement since hospital admission-- symptoms started 1 week ago. Patient has been treated with 48 hours of ceftriaxone without improvement. Objective: Vital Signs: Vital Signs Date Time Temp Pulse Resp B/P (MAP) Pulse Ox O2 Delivery O2 Flow Rate FiO2 03/03/20 08:40 72 131/67 03/03/20 08:35 95 Nasal Cannula 2.0 03/03/20 07:28 99.6 18 99.6 Labs: none today Physical Exam: Physical Exam: GEN: NAD, AAO X 3 HEENT: OP clear, dry Park's duct on left; Continued swelling and induration of left parotid gland (diffuse) CV: S1S2 without murmurs, rubs, or gallops RESP: CTAB without wheezing, rhonchi, or crackles EXT: No edema NEURO: AAO x 3, CN 3-12 intact Assessment & Plan: Assessment : 74 year old female with left parotid sialoadenitis that was refractory to oral antibiotics. Patient was admitted on 03/01 for IV antibiotics. Minimal improvement thus far with [address] imaging done 03/01 at [facility] did not show any abscess or other etiology that would require surgery at this time. Plan: - Discussed sialogogues with patient and family member. Patient to continue to use - Encouraged adequate hydration. - continue warm compresses to area - Ceftriaxone unlikely to be adequate alone due to less coverage of Gram positive organisms and oral anaerobes. Although, adequate gram negative coverage seen. No significant improvement after 48 hours. Plan to change today to cefuroxime 1.5gm every 8 hours plus metronizadole 500mg IV q 8 hours since patient has allergy to ampicillin. - Also plan to starting solumedrol IV to help relieve swelling-- although this addition will not allow us to monitor wbc - Will check CBC today prior to starting solumedrol. - If not clinically improved, we can consider repeat CT imaging on Thursday(tomorrow) to evaluate for abscess development Justicifation of Admission Dx: Justifications for Admission: Justification of Admission Dx: Yes FLOYD PALMA MD Mar 03, 2020 09:22
--- NOTE | 2020-03-03 10:29 | PDOC ---
PROGRESS NOTES Date of Service: DATE: 03/03/20 TIME: 10:29 Chief Complaint Chief Complaint ASSESSMENT AND PLAN: Parotid swelling, infection. morbid obesity admitted. consult Meme Hagen MD, ENT p.r.n. morphine, IV ceftriaxone 1 gram every day. Home meds, DVT prophylaxis. Full code. continued ceftriaxone and added clindamycin to regimen to cover anaerobes and aerobes D/W RN History of Present Illness History of Present Illness pleasant 74-year-old female who saw Dr. Meme Hagen of the ENT service today. She was told to go to the ER. We are going to admit the patient with infection to her parotid gland.//consulting Dr. Meme Hagen Vitals Vitals Vital Signs Date Time Temp Pulse Resp B/P (MAP) Pulse Ox O2 Delivery O2 Flow Rate FiO2 03/03/20 08:40 72 131/67 03/03/20 08:35 95 Nasal Cannula 2.0 03/03/20 07:28 99.6 18 99.6 Physical Exam Physical Exam HEENT: The left PAROTID is swollen., TENDERNESS SLOW TO RESOLVE EYES: Extraocular muscles are intact, pupils are equally round and reactive to light and accommodation MUSCULOSKELETAL: Well developed, well nourished, good range of motion ENDOCRINE: No thyromegaly was palpated LYMPHATICS: No cervical chain or axillary nodes were noted HEMATOPOIETIC: No bruising NECK: Supple, no JVD, no thyromegaly was noted. LUNGS: Clear to auscultation in all lung webb without rhonchi or wheezing. HEART: RRR, S1, S2 present. Peripheral pulses intact, no obvious murmurs were noted. ABDOMEN: Soft, nontender. Positive bowel sounds no organomegaly, normal bowel sounds. EXTREMITIES: Without any cyanosis, clubbing, or edema. Pedal pulses intact, Homans sign is negative. NEUROLOGIC: Normal speech, normal tone. A & O x3, moves all extremities, no obvious focal deficits. PSYCHIATRIC: Normal affect, normal mood. Stable. SKIN: No ulcerations or rashes, good skin turgor, no jaundice. VASCULAR: Good capillary refill, neurovascular bundle appears to be intact. General: Alert, Oriented X3, Cooperative, No acute distress Heart: Regular rate, Normal S1 Lungs: Clear Abdomen: Normal bowel sounds, Soft, No tenderness Extremities: No clubbing, No cyanosis, No edema Skin: No rashes Assessment and Plan Assessmemt and Plan Problems Medical Problems: (1) Parotitis not due to mumps Status: Acute Comment Review of Relevant I have reviewed the following items sarah (where applicable) has been applied. Labs Laboratory Tests Test 03/01/20 16:55 White Blood Count 9.4 x10^3/uL (4.0-11.0) Red Blood Count 4.01 x10^6/uL (3.50-5.40) Hemoglobin 12.5 g/dL (12.0-15.5) Hematocrit 36.9 % (36.0-47.0) Mean Corpuscular Volume 92 fL (79-100) Mean Corpuscular Hemoglobin 31 pg (25-35) Mean Corpuscular Hemoglobin Concent 34 g/dL (31-37) Red Cell Distribution Width 13.0 % (11.5-14.5) Platelet Count 203 x10^3/uL (140-400) Neutrophils (%) (Auto) 60 % (31-73) Lymphocytes (%) (Auto) 26 % (24-48) Monocytes (%) (Auto) 12 % (0-9) Eosinophils (%) (Auto) 2 % (0-3) Basophils (%) (Auto) 1 % (0-3) Neutrophils # (Auto) 5.6 x10^3/uL (1.8-7.7) Lymphocytes # (Auto) 2.4 x10^3/uL (1.0-4.8) Monocytes # (Auto) 1.1 x10^3/uL (0.0-1.1) Eosinophils # (Auto) 0.2 x10^3/uL (0.0-0.7) Basophils # (Auto) 0.1 x10^3/uL (0.0-0.2) Sodium Level 141 mmol/L (136-145) Potassium Level 3.9 mmol/L (3.5-5.1) Chloride Level 99 mmol/L (98-107) Carbon Dioxide Level 35 mmol/L (21-32) Anion Gap 7 (6-14) Blood Urea Nitrogen 16 mg/dL (7-20) Creatinine 1.0 mg/dL (0.6-1.0) Estimated GFR (Cockcroft-Gault) 54.3 Glucose Level 148 mg/dL (70-99) Calcium Level 8.7 mg/dL (8.5-10.1) Medications Current Medications Ceftriaxone Sodium (Rocephin) 1 gm 1X ONCE IVP Last administered on 03/01/20 17:26; Start 03/01/20 at 17:00; Stop 03/01/20 at 17:01; Status DC Morphine Sulfate (Morphine Sulfate) 2 mg PRN Q2HR PRN IV PAIN Last administered on 03/02/20at 12:55; Start 03/01/20 at 19:30; Stop 03/03/20 at 05:56; Status DC Ceftriaxone Sodium (Rocephin) 1 gm Q24H IVP Last administered on 03/02/20at 17:07; Start 03/02/20 at 17:00 Aspirin (Ecotrin) 325 mg DAILYWBKFT PO Last administered on 03/03/20 08:07; Start 03/02/20 at 08:00 Carvedilol (Coreg) 6.25 mg BIDWMEALS PO Last administered on 03/02/20at 17:07; Start 03/02/20 at 08:00; Stop 03/02/20 at 17:18; Status DC Vitamin D (Vitamin D3) 2,000 unit DAILY PO Last administered on 03/03/20 08:36; Start 03/02/20 at 09:00 Citalopram Hydrobromide (CeleXA) 10 mg DAILY PO Last administered on 03/03/20 08:37; Start 03/02/20 at 09:00 Clopidogrel Bisulfate (Plavix) 75 mg DAILYWBKFT PO Last administered on 03/03/20at 08:35; Start 03/02/20 at 08:00 Cyanocobalamin (Vitamin B-12) 5,000 mcg DAILY PO Last administered on 03/02/20 09:02; Start 03/02/20 at 09:00 Diphenhydramine HCl (Benadryl) 25 mg PRN DAILY PRN PO ALLERGIES; Start 03/02/20 at 05:45 Fluticasone Propionate (Flonase) 2 spray PRN DAILY PRN NS CONGESTION; Start 03/02/20 at 05:45 Furosemide (Lasix) 20 mg DAILY PO Last administered on 03/03/20at 08:38; Start 03/02/20 at 09:00 Ipratropium [place] (Atrovent) 0.2 mg Q8HRS IH ; Start 03/02/20 at 06:00; Stop 03/02/20 at 21:54; Status DC Methocarbamol (Robaxin) 500 mg DAILY PO Last administered on 03/03/20 08:38; Start 03/02/20 at 09:00 Nitroglycerin (Nitrostat) 0.4 mg PRN Q5MIN PRN SL CHEST PAIN; Start 03/02/20 at 05:45 Ranolazine (Ranexa) 500 mg BID PO Last administered on 03/03/20 08:40; Start 03/02/20 at 09:00 Senna/Docusate Sodium (Senna Plus) 1 tab DAILY PO Last administered on 03/03/20 08:37; Start 03/02/20 at 09:00 Trazodone HCl (Desyrel) 100 mg QHS PO Last administered on 03/02/20at 22:53; Start 03/02/20 at 21:00 Atorvastatin Calcium (Lipitor) 80 mg QHS PO Last administered on 03/02/20 22:53; Start 03/02/20 at 21:00 Gabapentin (Neurontin) 600 mg TID PO Last administered on 03/03/20 08:38; Start 03/02/20 at 09:00 Losartan Potassium (Cozaar) 100 mg DAILY PO Last administered on 03/03/20 08:39; Start 03/02/20 at 09:00 Pantoprazole Sodium (Protonix) 40 mg DAILYAC PO Last administered on 03/03/20 08:06; Start 03/02/20 at 07:30 Non-Formulary Medication (Rosuvastatin Calcium (Crestor)) 1 tab DAILY PO ; Start 03/02/20 at 09:00; Status UNV Acetaminophen/ Hydrocodone Bitart (Lortab 5/325) 1 tab PRN Q4HRS PRN PO MODERATE PAIN 4-6 Last administered on 03/03/20 08:35; Start 03/02/20 at 05:45 Lactobacillus Rhamnosus (Culturelle) 1 cap BID PO Last administered on 03/03/20 08:06; Start 03/02/20 at 21:00 Hydralazine HCl (Apresoline Inj) 10 mg PRN Q4HRS PRN IVP ELEVATED BP, SEE COMMENTS; Start 03/02/20 at 17:30 Carvedilol (Coreg) 12.5 mg BIDWMEALS PO Last administered on 03/03/20at 08:13; Start 03/02/20 at 17:30 Ipratropium [place]leg[place] (Atrovent) 0.2 mg PRN Q8HRS PRN IH SHORTNESS OF BREATH; Start 03/02/20 at 22:00 Metronidazole 100 ml @ 100 mls/hr Q8HRS IV ; Start 03/03/20 at 10:00; Status Cancel Methylprednisolone Sodium Succinate (SOLU-Medrol 125MG VIAL) 125 mg Q8HRS IV ; Start 03/03/20 at 10:00 Clindamycin Phosphate 50 ml @ 100 mls/hr Q8HRS IV ; Start 03/03/20 at 10:30 Active Scripts Active Aspirin Ec (Aspirin) 325 Mg Tablet.dr 325 Mg PO DAILYWBKFT Clopidogrel (Clopidogrel Bisulfate) 75 Mg Tablet 75 Mg PO DAILYWBKFT Reported Stool Softener Tablet (Sennosides/Docusate Sodium) 1 Each Tablet 1 Each PO DAILY NITROGLYCERIN SubLingual (Nitroglycerin) 0.4 Mg Tab.subl 0.4 Mg SL PRN Q5MIN PRN Benadryl (Diphenhydramine Hcl) 25 Mg Capsule 1 Cap PO DAILY PRN 30 Days Fluticasone Propionate Nasal [place] (Fluticasone Propionate) 16 Gm [place].susp 2 [place] NS DAILY PRN Crestor (Rosuvastatin Calcium) 40 Mg Tablet 1 Tab PO DAILY Ranexa (Ranolazine) 500 Mg Tab.er.12h 1 Tab PO BID 30 Days Robaxin-750 (Methocarbamol) 750 Mg Tablet 500 Mg PO DAILY 30 Days Hydrocodone-Acetamin 5-325 mg (Hydrocodone/Acetaminophen) 1 Each Tablet 1 Each PO Q4HRS PRN Furosemide 20 Mg Tablet 1 Tab PO DAILY Citalopram Hbr (Citalopram Hydrobromide) 10 Mg Tablet 10 Mg PO DAILY Losartan Potassium 100 Mg Tablet 100 Mg PO DAILY Ipratropium Bowlegs 0.2 Mg/1 Ml Solution 0.2 Mg IH Q8HRS Spiriva (Tiotropium Bowlegs) 18 Mcg Cap.w.dev 1 Cap IH DAILY Carvedilol (Carvedilol) 6.25 Mg Tablet 1 Tab PO BID Vitamin D3 (Cholecalciferol (Vitamin D3)) 1,000 Unit Tablet 2,000 Unit PO DAILY Vitamin B-12 (Cyanocobalamin (Vitamin B-12)) 1,000 Mcg Tablet 5,000 Mcg PO DAILY Omeprazole 40 Mg Capsule.dr 40 Mg PO DAILY Atorvastatin Calcium 80 Mg Tablet 80 Mg PO HS Trazodone Hcl 100 Mg Tablet 1 Tab PO QHS Gabapentin 600 Mg Tablet 600 Mg PO TID Vitals/I & O Vital Sign - Last 24 Hours 03/02/20 03/02/20 03/02/20 03/02/20 11:24 12:55 13:42 15:00 Temp 99.1 98.6 99.1 98.6 Pulse 77 74 Resp 16 16 16 18 B/P (MAP) 124/60 (81) 123/72 (89) Pulse Ox 97 94 O2 Delivery Nasal Cannula Nasal Cannula O2 Flow Rate 2.0 2.0 03/02/20 03/02/20 03/02/20 03/02/20 17:07 17:09 17:43 18:28 Pulse 89 89 89 99 Resp 16 B/P (MAP) 196/82 196/82 (120) 196/82 122/55 (77) Pulse Ox 92 98 O2 Delivery Nasal Cannula Nasal Cannula O2 Flow Rate 3.0 2.0 03/02/20 03/02/20 03/02/20 03/02/20 19:00 20:00 23:00 23:17 Temp 99.6 96.8 99.6 96.8 Pulse 65 75 Resp 16 B/P (MAP) 135/56 (82) 101/49 (66) Pulse Ox 95 98 95 O2 Delivery Nasal Cannula Nasal Cannula Nasal Cannula O2 Flow Rate 2.0 2.0 2.0 03/03/20 03/03/20 03/03/20 03/03/20 00:17 03:00 07:28 08:13 Temp 98.5 99.6 98.5 99.6 Pulse 63 72 72 Resp 18 18 18 B/P (MAP) 91/59 (70) 131/67 (88) 131/67 Pulse Ox 95 98 95 O2 Delivery Nasal Cannula Nasal Cannula O2 Flow Rate 2.0 2.0 03/03/20 03/03/20 03/03/20 08:35 08:39 08:40 Pulse 72 72 B/P (MAP) 131/67 131/67 Pulse Ox 95 O2 Delivery Nasal Cannula O2 Flow Rate 2.0 Intake and Output 03/02/20 03/02/20 03/03/20 15:00 23:00 07:00 Intake Total 760 ml 240 ml Output Total 0 ml Balance 760 ml 240 ml 0 ml Justicifation of Admission Dx: Justifications for Admission: Justification of Admission Dx: Yes DANIELLE PARKER MD Mar 03, 2020 10:29
[2020-03-03 10:43] LABS: BASO # 0.1 x10^3/uL (0.0-0.2); BASO % 1 % (0-3); EOS # 0.1 x10^3/uL (0.0-0.7); EOS % 2 % (0-3); HEMOGLOBIN 10.6 g/dL (12.0-15.5); LYMPH # 2.1 x10^3/uL (1.0-4.8); LYMPH % 26 % (24-48); MEAN CORPUSCULAR HEMOGLOBIN 31 pg (25-35); MEAN CORPUSCULAR HGB CONC 33 g/dL (31-37); MEAN CORPUSCULAR VOLUME 93 fL (79-100); MONO % 12 % (0-9); NEUT # 4.7 x10^3/uL (1.8-7.7); NEUT % 59 % (31-73); PLATELET COUNT 154 x10^3/uL (140-400); RED BLOOD COUNT 3.44 x10^6/uL (3.50-5.40); WHITE BLOOD COUNT 7.9 x10^3/uL (4.0-11.0)
[2020-03-03] MEDS: CYANOCOBALAMIN (VITAMIN B-12) 1,000 MCG TABLET. PO SCH (11:18)
[2020-03-03] MEDS: CLINDAMYCIN 900MG PREMIX 50 ML IV SCH ×2 (11:19→21:36)
[2020-03-03] MEDS: methylPREDNISolone SOD SUCC PF 125 MG/2 ML VIAL. IV SCH ×2 (11:19→21:38)
[2020-03-03] MEDS: cefTRIAXone IV Push 1 GM VIAL. IVP SCH (17:12)
[2020-03-03] MEDS: ATORVASTATIN CALCIUM 40 MG TABLET. PO SCH (21:37)
[2020-03-03] MEDS: traZODone 100 MG TABLET. PO SCH (21:38)
[2020-03-04 03:19] VITALS: BP 129/50
[2020-03-04] MEDS: HYDROcodone/APAP 5/325MG 1 TAB TABLET PO PRN ×2 (06:18→11:20)
[2020-03-04] MEDS: methylPREDNISolone SOD SUCC PF 125 MG/2 ML VIAL. IV SCH ×3 (06:18→20:41)
[2020-03-04] MEDS: CLINDAMYCIN 900MG PREMIX 50 ML IV SCH ×3 (06:19→20:40)
[2020-03-04 07:00] VITALS: BP 150/65
[2020-03-04 07:41] LABS: BASO % 0 % (0-3); EOS % 0 % (0-3); HEMATOCRIT 34.4 % (36.0-47.0); HEMOGLOBIN 11.6 g/dL (12.0-15.5); LYMPH # 1.1 x10^3/uL (1.0-4.8); LYMPH % 11 % (24-48); MEAN CORPUSCULAR HEMOGLOBIN 31 pg (25-35); MEAN CORPUSCULAR HGB CONC 34 g/dL (31-37); MEAN CORPUSCULAR VOLUME 92 fL (79-100); MONO # 0.3 x10^3/uL (0.0-1.1); MONO % 3 % (0-9); NEUT # 8.7 x10^3/uL (1.8-7.7); NEUT % 86 % (31-73); PLATELET COUNT 168 x10^3/uL (140-400); RED BLOOD COUNT 3.74 x10^6/uL (3.50-5.40); RED CELL DISTRIBUTION WIDTH 12.6 % (11.5-14.5); WHITE BLOOD COUNT 10.1 x10^3/uL (4.0-11.0)
[2020-03-04 07:52] LABS: ALBUMIN 2.8 g/dL (3.4-5.0); ALBUMIN/GLOBULIN RATIO 0.6 (1.0-1.7); CALCIUM 8.9 mg/dL (8.5-10.1); CREATININE 1.2 mg/dL (0.6-1.0); TOTAL BILIRUBIN 0.2 mg/dL (0.2-1.0); TOTAL PROTEIN 7.3 g/dL (6.4-8.2)
[2020-03-04] MEDS: CLOPIDOGREL BISULFATE 75 MG TABLET PO SCH (08:31)
[2020-03-04] MEDS: ASPIRIN ENTERIC COATED 325 MG TABLET.DR. PO SCH (08:31)
[2020-03-04] MEDS: PANTOPRAZOLE 40 MG TABLET.DR. PO SCH (08:31)
[2020-03-04] MEDS: METHOCARBAMOL 500 MG TABLET PO SCH (08:32)
[2020-03-04] MEDS: CARVEDILOL 12.5 MG TABLET. PO SCH ×2 (08:32→17:15)
[2020-03-04] MEDS: LACTOBACILLUS RHAMNOSUS GG 1 CAPSULE. PO SCH ×2 (08:32→20:40)
[2020-03-04] MEDS: CHOLECALCIFEROL (VITAMIN D3) 1,000 UNIT TABLET PO SCH (08:32)
[2020-03-04] MEDS: CITALOPRAM 10 MG TABLET. PO SCH (08:32)
[2020-03-04] MEDS: SENNOSIDES/DOCUSATE 8.6/50MG TABLET. PO SCH (08:32)
[2020-03-04] MEDS: GABAPENTIN 300 MG CAPSULE. PO SCH ×3 (08:32→20:41)
[2020-03-04] MEDS: FUROSEMIDE 20 MG TABLET PO SCH (08:33)
[2020-03-04] MEDS: LOSARTAN POTASSIUM 50 MG TABLET. PO SCH (08:33)
--- NOTE | 2020-03-04 10:15 | PDOC ---
Date of Service: DATE: 03/04/20 TIME: 10:12 Subjective: Subjective: Overall, patient does feel that pain and swelling has improved. She does report feeling slight fullness more superiorly now. Overall, doing better than yesterday. Objective: Vital Signs: Vital Signs Date Time Temp Pulse Resp B/P (MAP) Pulse Ox O2 Delivery O2 Flow Rate FiO2 03/04/20 08:33 71 150/65 03/04/20 08:30 Room Air 03/04/20 06:18 20 03/04/20 03:19 97.0 95 97.0 03/03/20 22:43 2.0 Labs: Laboratory Tests Test 03/03/20 10:20 03/04/20 06:25 White Blood Count 7.9 x10^3/uL (4.0-11.0) 10.1 x10^3/uL (4.0-11.0) Red Blood Count 3.44 x10^6/uL (3.50-5.40) 3.74 x10^6/uL (3.50-5.40) Hemoglobin 10.6 g/dL (12.0-15.5) 11.6 g/dL (12.0-15.5) Hematocrit 32.0 % (36.0-47.0) 34.4 % (36.0-47.0) Mean Corpuscular Volume 93 fL (79-100) 92 fL (79-100) Mean Corpuscular Hemoglobin 31 pg (25-35) 31 pg (25-35) Mean Corpuscular Hemoglobin Concent 33 g/dL (31-37) 34 g/dL (31-37) Red Cell Distribution Width 13.0 % (11.5-14.5) 12.6 % (11.5-14.5) Platelet Count 154 x10^3/uL (140-400) 168 x10^3/uL (140-400) Neutrophils (%) (Auto) 59 % (31-73) 86 % (31-73) Lymphocytes (%) (Auto) 26 % (24-48) 11 % (24-48) Monocytes (%) (Auto) 12 % (0-9) 3 % (0-9) Eosinophils (%) (Auto) 2 % (0-3) 0 % (0-3) Basophils (%) (Auto) 1 % (0-3) 0 % (0-3) Neutrophils # (Auto) 4.7 x10^3/uL (1.8-7.7) 8.7 x10^3/uL (1.8-7.7) Lymphocytes # (Auto) 2.1 x10^3/uL (1.0-4.8) 1.1 x10^3/uL (1.0-4.8) Monocytes # (Auto) 1.0 x10^3/uL (0.0-1.1) 0.3 x10^3/uL (0.0-1.1) Eosinophils # (Auto) 0.1 x10^3/uL (0.0-0.7) 0.0 x10^3/uL (0.0-0.7) Basophils # (Auto) 0.1 x10^3/uL (0.0-0.2) 0.0 x10^3/uL (0.0-0.2) Sodium Level 139 mmol/L (136-145) Potassium Level 4.0 mmol/L (3.5-5.1) Chloride Level 100 mmol/L (98-107) Carbon Dioxide Level 37 mmol/L (21-32) Anion Gap 2 (6-14) Blood Urea Nitrogen 24 mg/dL (7-20) Creatinine 1.2 mg/dL (0.6-1.0) Estimated GFR (Cockcroft-Gault) 44.0 BUN/Creatinine Ratio 20 (6-20) Glucose Level 240 mg/dL (70-99) Calcium Level 8.9 mg/dL (8.5-10.1) Total Bilirubin 0.2 mg/dL (0.2-1.0) Aspartate Amino Transf (AST/SGOT) 11 U/L (15-37) Alanine Aminotransferase (ALT/SGPT) 11 U/L (14-59) Alkaline Phosphatase 69 U/L (46-116) Total Protein 7.3 g/dL (6.4-8.2) Albumin 2.8 g/dL (3.4-5.0) Albumin/Globulin Ratio 0.6 (1.0-1.7) Physical Exam: Physical Exam: GEN: NAD HEENT: Oral Cavity-- increased discharge, slightly purulent from left Stensen's duct, no sam stone; Left neck: Parotid edema/induration has improved, especially anteriorly. Posterior induration still present. CV: S1S2 without murmurs, rubs, or gallops RESP: CTAB without wheezing, rhonchi, or crackles EXT: No edema NEURO: AAO x 3 Assessment & Plan: Assessment : 74 year old female with left parotid sialoadenitis that was refractory to oral antibiotics. Patient was admitted on 03/01 for IV antibiotics. Minimal improvement thus far with [address] imaging done 03/01 at [facility] did not show any abscess or other etiology that would require surgery at this time. Patient physical exam has improved over past 24 hours with addition of IV clindamycin and solumedrol. Plan: - Discussed sialogogues with patient and family member. Patient to continue to use - Encouraged adequate hydration. - continue warm compresses to area - Continue ceftriaxone and IV clindamycin - Continue solumedrol IV to help relieve swelling-- although this addition will not allow us to monitor wbc - I don't feel that CT imaging required at this time. If continues to clinically improve over next 24 hours, we can consider hospital discharge tomorrow or Thursday with oral antibiotics. Justicifation of Admission Dx: Justifications for Admission: Justification of Admission Dx: Yes FLOYD PALMA MD Mar 04, 2020 10:15
--- NOTE | 2020-03-04 10:56 | PDOC ---
PROGRESS NOTES Date of Service: DATE: 03/04/20 TIME: 10:56 Chief Complaint Chief Complaint ASSESSMENT AND PLAN: Parotid swelling, infection. morbid obesity admitted. consult Meme Hagen MD, ENT p.r.n. morphine, IV ceftriaxone 1 gram every day. Home meds, DVT prophylaxis. Full code. continued ceftriaxone and added clindamycin to regimen to cover anaerobes and aerobes Consider hospital discharge tomorrow or Thursday with oral antibiotics. D/W RN History of Present Illness History of Present Illness pleasant 74-year-old female who saw Dr. Meme Hagen of the ENT service today. She was told to go to the ER. We are going to admit the patient with infection to her parotid gland.//consulting Dr. Meme Hagen Vitals Vitals Vital Signs Date Time Temp Pulse Resp B/P (MAP) Pulse Ox O2 Delivery O2 Flow Rate FiO2 03/04/20 08:33 71 150/65 03/04/20 08:30 Room Air 03/04/20 07:00 97.5 12 100 97.5 03/03/20 22:43 2.0 Physical Exam Physical Exam HEENT: The left PAROTID is swollen., TENDERNESS SLOW TO RESOLVE , BUT IMPROVING EYES: Extraocular muscles are intact, pupils are equally round and reactive to light and accommodation MUSCULOSKELETAL: Well developed, well nourished, good range of motion ENDOCRINE: No thyromegaly was palpated LYMPHATICS: No cervical chain or axillary nodes were noted HEMATOPOIETIC: No bruising NECK: Supple, no JVD, no thyromegaly was noted. LUNGS: Clear to auscultation in all lung webb without rhonchi or wheezing. HEART: RRR, S1, S2 present. Peripheral pulses intact, no obvious murmurs were noted. ABDOMEN: Soft, nontender. Positive bowel sounds no organomegaly, normal bowel sounds. EXTREMITIES: Without any cyanosis, clubbing, or edema. Pedal pulses intact, Homans sign is negative. NEUROLOGIC: Normal speech, normal tone. A & O x3, moves all extremities, no obvious focal deficits. PSYCHIATRIC: Normal affect, normal mood. Stable. SKIN: No ulcerations or rashes, good skin turgor, no jaundice. VASCULAR: Good capillary refill, neurovascular bundle appears to be intact. General: Alert, Oriented X3, Cooperative, No acute distress Heart: Regular rate, Normal S1 Lungs: Clear Abdomen: Normal bowel sounds, Soft, No tenderness Extremities: No clubbing, No cyanosis, No edema Skin: No rashes Labs LABS Laboratory Tests Test 03/04/20 06:25 White Blood Count 10.1 x10^3/uL (4.0-11.0) Red Blood Count 3.74 x10^6/uL (3.50-5.40) Hemoglobin 11.6 g/dL (12.0-15.5) Hematocrit 34.4 % (36.0-47.0) Mean Corpuscular Volume 92 fL (79-100) Mean Corpuscular Hemoglobin 31 pg (25-35) Mean Corpuscular Hemoglobin Concent 34 g/dL (31-37) Red Cell Distribution Width 12.6 % (11.5-14.5) Platelet Count 168 x10^3/uL (140-400) Neutrophils (%) (Auto) 86 % (31-73) Lymphocytes (%) (Auto) 11 % (24-48) Monocytes (%) (Auto) 3 % (0-9) Eosinophils (%) (Auto) 0 % (0-3) Basophils (%) (Auto) 0 % (0-3) Neutrophils # (Auto) 8.7 x10^3/uL (1.8-7.7) Lymphocytes # (Auto) 1.1 x10^3/uL (1.0-4.8) Monocytes # (Auto) 0.3 x10^3/uL (0.0-1.1) Eosinophils # (Auto) 0.0 x10^3/uL (0.0-0.7) Basophils # (Auto) 0.0 x10^3/uL (0.0-0.2) Sodium Level 139 mmol/L (136-145) Potassium Level 4.0 mmol/L (3.5-5.1) Chloride Level 100 mmol/L (98-107) Carbon Dioxide Level 37 mmol/L (21-32) Anion Gap 2 (6-14) Blood Urea Nitrogen 24 mg/dL (7-20) Creatinine 1.2 mg/dL (0.6-1.0) Estimated GFR (Cockcroft-Gault) 44.0 BUN/Creatinine Ratio 20 (6-20) Glucose Level 240 mg/dL (70-99) Calcium Level 8.9 mg/dL (8.5-10.1) Total Bilirubin 0.2 mg/dL (0.2-1.0) Aspartate Amino Transf (AST/SGOT) 11 U/L (15-37) Alanine Aminotransferase (ALT/SGPT) 11 U/L (14-59) Alkaline Phosphatase 69 U/L (46-116) Total Protein 7.3 g/dL (6.4-8.2) Albumin 2.8 g/dL (3.4-5.0) Albumin/Globulin Ratio 0.6 (1.0-1.7) Assessment and Plan Assessmemt and Plan Problems Medical Problems: (1) Parotitis not due to mumps Status: Acute Comment Review of Relevant I have reviewed the following items sarah (where applicable) has been applied. Labs Laboratory Tests Test 03/03/20 10:20 03/04/20 06:25 White Blood Count 7.9 x10^3/uL (4.0-11.0) 10.1 x10^3/uL (4.0-11.0) Red Blood Count 3.44 x10^6/uL (3.50-5.40) 3.74 x10^6/uL (3.50-5.40) Hemoglobin 10.6 g/dL (12.0-15.5) 11.6 g/dL (12.0-15.5) Hematocrit 32.0 % (36.0-47.0) 34.4 % (36.0-47.0) Mean Corpuscular Volume 93 fL (79-100) 92 fL (79-100) Mean Corpuscular Hemoglobin 31 pg (25-35) 31 pg (25-35) Mean Corpuscular Hemoglobin Concent 33 g/dL (31-37) 34 g/dL (31-37) Red Cell Distribution Width 13.0 % (11.5-14.5) 12.6 % (11.5-14.5) Platelet Count 154 x10^3/uL (140-400) 168 x10^3/uL (140-400) Neutrophils (%) (Auto) 59 % (31-73) 86 % (31-73) Lymphocytes (%) (Auto) 26 % (24-48) 11 % (24-48) Monocytes (%) (Auto) 12 % (0-9) 3 % (0-9) Eosinophils (%) (Auto) 2 % (0-3) 0 % (0-3) Basophils (%) (Auto) 1 % (0-3) 0 % (0-3) Neutrophils # (Auto) 4.7 x10^3/uL (1.8-7.7) 8.7 x10^3/uL (1.8-7.7) Lymphocytes # (Auto) 2.1 x10^3/uL (1.0-4.8) 1.1 x10^3/uL (1.0-4.8) Monocytes # (Auto) 1.0 x10^3/uL (0.0-1.1) 0.3 x10^3/uL (0.0-1.1) Eosinophils # (Auto) 0.1 x10^3/uL (0.0-0.7) 0.0 x10^3/uL (0.0-0.7) Basophils # (Auto) 0.1 x10^3/uL (0.0-0.2) 0.0 x10^3/uL (0.0-0.2) Sodium Level 139 mmol/L (136-145) Potassium Level 4.0 mmol/L (3.5-5.1) Chloride Level 100 mmol/L (98-107) Carbon Dioxide Level 37 mmol/L (21-32) Anion Gap 2 (6-14) Blood Urea Nitrogen 24 mg/dL (7-20) Creatinine 1.2 mg/dL (0.6-1.0) Estimated GFR (Cockcroft-Gault) 44.0 BUN/Creatinine Ratio 20 (6-20) Glucose Level 240 mg/dL (70-99) Calcium Level 8.9 mg/dL (8.5-10.1) Total Bilirubin 0.2 mg/dL (0.2-1.0) Aspartate Amino Transf (AST/SGOT) 11 U/L (15-37) Alanine Aminotransferase (ALT/SGPT) 11 U/L (14-59) Alkaline Phosphatase 69 U/L (46-116) Total Protein 7.3 g/dL (6.4-8.2) Albumin 2.8 g/dL (3.4-5.0) Albumin/Globulin Ratio 0.6 (1.0-1.7) Laboratory Tests Test 03/04/20 06:25 White Blood Count 10.1 x10^3/uL (4.0-11.0) Red Blood Count 3.74 x10^6/uL (3.50-5.40) Hemoglobin 11.6 g/dL (12.0-15.5) Hematocrit 34.4 % (36.0-47.0) Mean Corpuscular Volume 92 fL (79-100) Mean Corpuscular Hemoglobin 31 pg (25-35) Mean Corpuscular Hemoglobin Concent 34 g/dL (31-37) Red Cell Distribution Width 12.6 % (11.5-14.5) Platelet Count 168 x10^3/uL (140-400) Neutrophils (%) (Auto) 86 % (31-73) Lymphocytes (%) (Auto) 11 % (24-48) Monocytes (%) (Auto) 3 % (0-9) Eosinophils (%) (Auto) 0 % (0-3) Basophils (%) (Auto) 0 % (0-3) Neutrophils # (Auto) 8.7 x10^3/uL (1.8-7.7) Lymphocytes # (Auto) 1.1 x10^3/uL (1.0-4.8) Monocytes # (Auto) 0.3 x10^3/uL (0.0-1.1) Eosinophils # (Auto) 0.0 x10^3/uL (0.0-0.7) Basophils # (Auto) 0.0 x10^3/uL (0.0-0.2) Sodium Level 139 mmol/L (136-145) Potassium Level 4.0 mmol/L (3.5-5.1) Chloride Level 100 mmol/L (98-107) Carbon Dioxide Level 37 mmol/L (21-32) Anion Gap 2 (6-14) Blood Urea Nitrogen 24 mg/dL (7-20) Creatinine 1.2 mg/dL (0.6-1.0) Estimated GFR (Cockcroft-Gault) 44.0 BUN/Creatinine Ratio 20 (6-20) Glucose Level 240 mg/dL (70-99) Calcium Level 8.9 mg/dL (8.5-10.1) Total Bilirubin 0.2 mg/dL (0.2-1.0) Aspartate Amino Transf (AST/SGOT) 11 U/L (15-37) Alanine Aminotransferase (ALT/SGPT) 11 U/L (14-59) Alkaline Phosphatase 69 U/L (46-116) Total Protein 7.3 g/dL (6.4-8.2) Albumin 2.8 g/dL (3.4-5.0) Albumin/Globulin Ratio 0.6 (1.0-1.7) Medications Current Medications Ceftriaxone Sodium (Rocephin) 1 gm 1X ONCE IVP Last administered on 03/01/20 17:26; Start 03/01/20 at 17:00; Stop 03/01/20 at 17:01; Status DC Morphine Sulfate (Morphine Sulfate) 2 mg PRN Q2HR PRN IV PAIN Last administered on 03/02/20 12:55; Start 03/01/20 at 19:30; Stop 03/03/20 at 05:56; Status DC Ceftriaxone Sodium (Rocephin) 1 gm Q24H IVP Last administered on 03/03/20at 17:12; Start 03/02/20 at 17:00 Aspirin (Ecotrin) 325 mg DAILYWBKFT PO Last administered on 03/04/20 08:31; Start 03/02/20 at 08:00 Carvedilol (Coreg) 6.25 mg BIDWMEALS PO Last administered on 03/02/20 17:07; Start 03/02/20 at 08:00; Stop 03/02/20 at 17:18; Status DC Vitamin D (Vitamin D3) 2,000 unit DAILY PO Last administered on 03/04/20 08:32; Start 03/02/20 at 09:00 Citalopram Hydrobromide (CeleXA) 10 mg DAILY PO Last administered on 03/04/20 08:32; Start 03/02/20 at 09:00 Clopidogrel Bisulfate (Plavix) 75 mg DAILYWBKFT PO Last administered on 03/04/20 08:31; Start 03/02/20 at 08:00 Cyanocobalamin (Vitamin B-12) 5,000 mcg DAILY PO Last administered on 03/03/20 11:18; Start 03/02/20 at 09:00 Diphenhydramine HCl (Benadryl) 25 mg PRN DAILY PRN PO ALLERGIES; Start 03/02/20 at 05:45 Fluticasone Propionate (Flonase) 2 spray PRN DAILY PRN NS CONGESTION; Start 03/02/20 at 05:45 Furosemide (Lasix) 20 mg DAILY PO Last administered on 03/04/20at 08:33; Start 03/02/20 at 09:00 Ipratropium [place] (Atrovent) 0.2 mg Q8HRS IH ; Start 03/02/20 at 06:00; Stop 03/02/20 at 21:54; Status DC Methocarbamol (Robaxin) 500 mg DAILY PO Last administered on 03/04/20 08:32; Start 03/02/20 at 09:00 Nitroglycerin (Nitrostat) 0.4 mg PRN Q5MIN PRN SL CHEST PAIN; Start 03/02/20 at 05:45 Ranolazine (Ranexa) 500 mg BID PO Last administered on 03/03/20 21:37; Start 03/02/20 at 09:00 Senna/Docusate Sodium (Senna Plus) 1 tab DAILY PO Last administered on 03/04/20 08:32; Start 03/02/20 at 09:00 Trazodone HCl (Desyrel) 100 mg QHS PO Last administered on 03/03/20 21:38; Start 03/02/20 at 21:00 Atorvastatin Calcium (Lipitor) 80 mg QHS PO Last administered on 03/03/20 21:37; Start 03/02/20 at 21:00 Gabapentin (Neurontin) 600 mg TID PO Last administered on 03/04/20 08:32; Start 03/02/20 at 09:00 Losartan Potassium (Cozaar) 100 mg DAILY PO Last administered on 03/04/20 08:33; Start 03/02/20 at 09:00 Pantoprazole Sodium (Protonix) 40 mg DAILYAC PO Last administered on 03/04/20 08:31; Start 03/02/20 at 07:30 Non-Formulary Medication (Rosuvastatin Calcium (Crestor)) 1 tab DAILY PO ; Start 03/02/20 at 09:00; Status UNV Acetaminophen/ Hydrocodone Bitart (Lortab 5/325) 1 tab PRN Q4HRS PRN PO MODERATE PAIN 4-6 Last administered on 03/04/20at 06:18; Start 03/02/20 at 05:45 Lactobacillus Rhamnosus (Culturelle) 1 cap BID PO Last administered on 03/04/20at 08:32; Start 03/02/20 at 21:00 Hydralazine HCl (Apresoline Inj) 10 mg PRN Q4HRS PRN IVP ELEVATED BP, SEE COMMENTS; Start 03/02/20 at 17:30 Carvedilol (Coreg) 12.5 mg BIDWMEALS PO Last administered on 03/04/20at 08:32; Start 03/02/20 at 17:30 Ipratropium [place] (Atrovent) 0.2 mg PRN Q8HRS PRN IH SHORTNESS OF BREATH; Start 03/02/20 at 22:00 Metronidazole 100 ml @ 100 mls/hr Q8HRS IV ; Start 03/03/20 at 10:00; Status Cancel Methylprednisolone Sodium Succinate (SOLU-Medrol 125MG VIAL) 125 mg Q8HRS IV Last administered on 03/04/20at 06:18; Start 03/03/20 at 10:00 Clindamycin Phosphate 50 ml @ 100 mls/hr Q8HRS IV Last administered on 03/04/20at 06:19; Start 03/03/20 at 10:30 Active Scripts Active Aspirin Ec (Aspirin) 325 Mg Tablet.dr 325 Mg PO DAILYWBKFT Clopidogrel (Clopidogrel Bisulfate) 75 Mg Tablet 75 Mg PO DAILYWBKFT Reported Stool Softener Tablet (Sennosides/Docusate Sodium) 1 Each Tablet 1 Each PO DAILY NITROGLYCERIN SubLingual (Nitroglycerin) 0.4 Mg Tab.subl 0.4 Mg SL PRN Q5MIN PRN Benadryl (Diphenhydramine Hcl) 25 Mg Capsule 1 Cap PO DAILY PRN 30 Days Fluticasone Propionate Nasal [place] (Fluticasone Propionate) 16 Gm [place].susp 2 [place] NS DAILY PRN Crestor (Rosuvastatin Calcium) 40 Mg Tablet 1 Tab PO DAILY Ranexa (Ranolazine) 500 Mg Tab.er.12h 1 Tab PO BID 30 Days Robaxin-750 (Methocarbamol) 750 Mg Tablet 500 Mg PO DAILY 30 Days Hydrocodone-Acetamin 5-325 mg (Hydrocodone/Acetaminophen) 1 Each Tablet 1 Each PO Q4HRS PRN Furosemide 20 Mg Tablet 1 Tab PO DAILY Citalopram Hbr (Citalopram Hydrobromide) 10 Mg Tablet 10 Mg PO DAILY Losartan Potassium 100 Mg Tablet 100 Mg PO DAILY Ipratropium [place] 0.2 Mg/1 Ml Solution 0.2 Mg IH Q8HRS Spiriva (Tiotropium [place]) 18 Mcg Cap.w.dev 1 Cap IH DAILY Carvedilol (Carvedilol) 6.25 Mg Tablet 1 Tab PO BID Vitamin D3 (Cholecalciferol (Vitamin D3)) 1,000 Unit Tablet 2,000 Unit PO DAILY Vitamin B-12 (Cyanocobalamin (Vitamin B-12)) 1,000 Mcg Tablet 5,000 Mcg PO DAILY Omeprazole 40 Mg Capsule.dr 40 Mg PO DAILY Atorvastatin Calcium 80 Mg Tablet 80 Mg PO HS Trazodone Hcl 100 Mg Tablet 1 Tab PO QHS Gabapentin 600 Mg Tablet 600 Mg PO TID Vitals/I & O Vital Sign - Last 24 Hours 03/03/20 03/03/20 03/03/20 03/03/20 11:00 15:27 17:11 19:31 Temp 99.0 99.3 98.6 99.0 99.3 98.6 Pulse 69 71 71 70 Resp 18 18 16 B/P (MAP) 120/53 (75) 104/45 (64) 104/45 122/55 (77) Pulse Ox 96 95 94 O2 Delivery Nasal Cannula Nasal Cannula Nasal Cannula O2 Flow Rate 2.0 2.0 2.0 03/03/20 03/03/20 03/03/20 03/04/20 20:20 21:37 22:43 03:19 Temp 98.9 97.0 98.9 97.0 Pulse 70 77 61 Resp 22 20 B/P (MAP) 122/55 112/65 (81) 129/50 (76) Pulse Ox 96 95 O2 Delivery Nasal Cannula Nasal Cannula Nasal Cannula O2 Flow Rate 2.0 2.0 03/04/20 03/04/20 03/04/20 03/04/20 06:18 07:00 08:30 08:32 Temp 97.5 97.5 Pulse 71 71 Resp 20 12 B/P (MAP) 150/65 (93) 150/65 Pulse Ox 100 O2 Delivery Nasal Cannula Nasal Cannula Room Air 03/04/20 08:33 Pulse 71 B/P (MAP) 150/65 Intake and Output 03/03/20 03/03/20 03/04/20 15:00 23:00 07:00 Intake Total 560 ml 50 ml Output Total 0 ml Balance 560 ml 50 ml 0 ml Justicifation of Admission Dx: Justifications for Admission: Justification of Admission Dx: Yes DANIELLE PARKER MD Mar 04, 2020 10:56
[2020-03-04 11:00] VITALS: BP 106/76
[2020-03-04 11:16] LABS: % EOS 4 % (0-5); % LYMPHS 27 % (24-48); % MONOS 8 % (0-10); % SEGS 61 % (35-66); PLT ESTIMATE ADEQUATE (ADEQUATE)
[2020-03-04] MEDS: CYANOCOBALAMIN (VITAMIN B-12) 1,000 MCG TABLET. PO SCH (11:20)
[2020-03-04] MEDS: RANOLAZINE 500 MG TAB.ER.12H PO SCH ×2 (12:06→20:41)
[2020-03-04 15:00] VITALS: BP 143/63
[2020-03-04] MEDS: cefTRIAXone IV Push 1 GM VIAL. IVP SCH (17:15)
[2020-03-04 19:00] VITALS: BP 150/74
[2020-03-04] MEDS: traZODone 100 MG TABLET. PO SCH (20:40)
[2020-03-04] MEDS: ATORVASTATIN CALCIUM 40 MG TABLET. PO SCH (20:40)
[2020-03-04 23:00] VITALS: BP 142/59
[2020-03-05] MEDS: HYDROcodone/APAP 5/325MG 1 TAB TABLET PO PRN (00:09)
[2020-03-05 03:43] VITALS: BP 138/61
[2020-03-05] MEDS: methylPREDNISolone SOD SUCC PF 125 MG/2 ML VIAL. IV SCH ×2 (06:06→13:05)
[2020-03-05] MEDS: CLINDAMYCIN 900MG PREMIX 50 ML IV SCH ×2 (06:06→13:05)
[2020-03-05 07:00] VITALS: BP 138/60
[2020-03-05] MEDS: LACTOBACILLUS RHAMNOSUS GG 1 CAPSULE. PO SCH (09:24)
[2020-03-05] MEDS: ASPIRIN ENTERIC COATED 325 MG TABLET.DR. PO SCH (09:25)
[2020-03-05] MEDS: CLOPIDOGREL BISULFATE 75 MG TABLET PO SCH (09:25)
[2020-03-05] MEDS: FUROSEMIDE 20 MG TABLET PO SCH (09:25)
[2020-03-05] MEDS: METHOCARBAMOL 500 MG TABLET PO SCH (09:25)
[2020-03-05] MEDS: PANTOPRAZOLE 40 MG TABLET.DR. PO SCH (09:25)
[2020-03-05] MEDS: LOSARTAN POTASSIUM 50 MG TABLET. PO SCH (09:25)
[2020-03-05] MEDS: CITALOPRAM 10 MG TABLET. PO SCH (09:25)
[2020-03-05] MEDS: SENNOSIDES/DOCUSATE 8.6/50MG TABLET. PO SCH (09:25)
[2020-03-05] MEDS: CYANOCOBALAMIN (VITAMIN B-12) 1,000 MCG TABLET. PO SCH (09:26)
[2020-03-05] MEDS: CHOLECALCIFEROL (VITAMIN D3) 1,000 UNIT TABLET PO SCH (09:26)
[2020-03-05] MEDS: GABAPENTIN 300 MG CAPSULE. PO SCH ×2 (09:26→13:05)
[2020-03-05] MEDS: RANOLAZINE 500 MG TAB.ER.12H PO SCH (09:26)
[2020-03-05] MEDS: CARVEDILOL 12.5 MG TABLET. PO SCH (09:26)
--- NOTE | 2020-03-05 09:52 | PDOC ---
[facility] PROGRESS NOTE Date of Service DOS: DATE: 03/05/20 TIME: 09:51 Chief Complaint Chief Complaint A/P: Parotid swelling, infection. morbid obesity Hyperglycemia admitted. consult Meme Hagen MD, ENT p.r.n. morphine, IV ceftriaxone 1 gram every day. Home meds, DVT prophylaxis. Full code. continued ceftriaxone and added clindamycin to regimen to cover anaerobes and aerobes Consider hospital discharge tomorrow or Thursday with oral antibiotics. D/W RN History of Present Illness History of Present Illness Ms Garcia is a 74-year-old female who saw Dr. Meme Hagen of the ENT service and was told to go to the ER. Admitted the patient with infection to her parotid gland. Solumedrol, clindamycin, and ceftriaxone improving parotid swelling. Counseled on use of sialogues. She is feeling much improved and requesting discharge home today. Vitals/I&O Vitals/I&O: Vital Signs Date Time Temp Pulse Resp B/P (MAP) Pulse Ox O2 Delivery O2 Flow Rate FiO2 03/05/20 09:26 67 138/60 03/05/20 07:00 97.7 18 94 Room Air 97.7 03/05/20 00:09 2.0 I & O 03/04/20 03/04/20 03/05/20 15:00 23:00 07:00 Intake Total 410 ml 50 ml Output Total 0 ml Balance 410 ml 50 ml 0 ml Physical Exam Physical Exam: HEENT: The left PAROTID is swollen., TENDERNESS SLOW TO RESOLVE , BUT IMPROVING EYES: Extraocular muscles are intact, pupils are equally round and reactive to light and accommodation MUSCULOSKELETAL: Well developed, well nourished, good range of motion ENDOCRINE: No thyromegaly was palpated LYMPHATICS: No cervical chain or axillary nodes were noted HEMATOPOIETIC: No bruising NECK: Supple, no JVD, no thyromegaly was noted. LUNGS: Clear to auscultation in all lung webb without rhonchi or wheezing. HEART: RRR, S1, S2 present. Peripheral pulses intact, no obvious murmurs were noted. ABDOMEN: Soft, nontender. Positive bowel sounds no organomegaly, normal bowel sounds. EXTREMITIES: Without any cyanosis, clubbing, or edema. Pedal pulses intact, Homans sign is negative. NEUROLOGIC: Normal speech, normal tone. A & O x3, moves all extremities, no obvious focal deficits. PSYCHIATRIC: Normal affect, normal mood. Stable. SKIN: No ulcerations or rashes, good skin turgor, no jaundice. VASCULAR: Good capillary refill, neurovascular bundle appears to be intact. General: Alert, Oriented X3, Cooperative, No acute distress Heart: Regular rate, Normal S1 Lungs: Clear Abdomen: Normal bowel sounds, Soft, No tenderness Extremities: No clubbing, No cyanosis, No edema Skin: No rashes Assessment and Plan Assessmemt and Plan Problems Medical Problems: (1) Parotitis not due to mumps Status: Acute Comment Review of Relevant I have reviewed the following items sarah (where applicable) has been applied. Justicifation of Admission Dx: Justifications for Admission: Justification of Admission Dx: Yes TATI FERREIRA MD Mar 05, 2020 09:52
--- NOTE | 2020-03-05 10:17 | NUR ---
SW following. Discussed with RN, pt from home with sister. RN advised no SW needs, anticipate discharge home today.
[2020-03-05 11:00] VITALS: BP 158/65
[2020-03-05] MEDS ORDERED: PRED20TA PO (12:28)
[2020-03-05] MEDS ORDERED: CEFD300C PO (12:28)
[2020-03-05] MEDS ORDERED: HYDR-2759 PO (12:28)
[2020-03-05] MEDS ORDERED: CLIN300C8 PO (12:28)
--- NOTE | 2020-03-05 16:02 | NUR ---
Discharge Note: PT DISCHARGED HOME WITH SELF CARE. PT LEFT FACILITY VIA PRIVATE VEHICLE WITH DAUGHTER. PT STABLE AND ALERT UPON DISCHARGE. PT PIV REMOVED FROM R FA WITHOUT COMPLICATIONS, BANDAGE APPLIED. PT EDUCATED ABOUT DISCHARGE INSTRUCTIONS, DISCHARGE MEDICATIONS, AND FOLLOW-UP CARE. PT INFORMED THAT DR. PALMA (ENT) WOULD BE IN CONTACT WITH HER TO SCHEDULE A FOLLOW-UP APPOINTMENT BY THURSDAY. NO CONCERNS VOICED AT THIS TIME. PT LEFT WITH ALL PERSONAL BELONGINGS. ANTONETTE GORMAN Discharge instructions and discharge home medications reviewed with Patient and a copy given. All questions have been answered and understanding verbalized.
--- NOTE | 2020-03-05 23:01 | PDOC3 ---
Discharge Summary Visit Information Date of Admission: Mar 02, 2020 Date of Discharge: Mar 05, 2020 Admitting Diagnosis: Parotitits, left > right Final Diagnosis Problems Medical Problems: (1) Parotitis not due to mumps Status: Acute Brief Hospital Course Allergies Allergies Coded Allergies Type Severity Reaction Last Updated Verified ampicillin Allergy Intermediate 10/03/15 Yes cyclobenzaprine Allergy Intermediate 10/03/15 Yes dexamethasone Allergy Intermediate 03/02/20 Yes latex Allergy Intermediate 10/03/15 Yes pravastatin Allergy Intermediate 08/13/17 Yes albuterol Allergy Mild 03/01/20 Yes morphine Adverse Reaction Intermediate 03/03/20 Yes Vital Signs Vital Signs Date Time Temp Pulse Resp B/P (MAP) Pulse Ox O2 Delivery O2 Flow Rate FiO2 03/05/20 11:00 98.1 73 18 158/65 (96) 92 Room Air 98.1 03/05/20 08:00 2.0 Lab Results Laboratory Tests Test 03/04/20 06:25 White Blood Count 10.1 x10^3/uL (4.0-11.0) Red Blood Count 3.74 x10^6/uL (3.50-5.40) Hemoglobin 11.6 g/dL (12.0-15.5) Hematocrit 34.4 % (36.0-47.0) Mean Corpuscular Volume 92 fL (79-100) Mean Corpuscular Hemoglobin 31 pg (25-35) Mean Corpuscular Hemoglobin Concent 34 g/dL (31-37) Red Cell Distribution Width 12.6 % (11.5-14.5) Platelet Count 168 x10^3/uL (140-400) Neutrophils (%) (Auto) 86 % (31-73) Lymphocytes (%) (Auto) 11 % (24-48) Monocytes (%) (Auto) 3 % (0-9) Eosinophils (%) (Auto) 0 % (0-3) Basophils (%) (Auto) 0 % (0-3) Neutrophils # (Auto) 8.7 x10^3/uL (1.8-7.7) Lymphocytes # (Auto) 1.1 x10^3/uL (1.0-4.8) Monocytes # (Auto) 0.3 x10^3/uL (0.0-1.1) Eosinophils # (Auto) 0.0 x10^3/uL (0.0-0.7) Basophils # (Auto) 0.0 x10^3/uL (0.0-0.2) Segmented Neutrophils % 61 % (35-66) Lymphocytes % 27 % (24-48) Monocytes % 8 % (0-10) Eosinophils % 4 % (0-5) Platelet Estimate Adequate (ADEQUATE) Large Platelets Present Sodium Level 139 mmol/L (136-145) Potassium Level 4.0 mmol/L (3.5-5.1) Chloride Level 100 mmol/L (98-107) Carbon Dioxide Level 37 mmol/L (21-32) Anion Gap 2 (6-14) Blood Urea Nitrogen 24 mg/dL (7-20) Creatinine 1.2 mg/dL (0.6-1.0) Estimated GFR (Cockcroft-Gault) 44.0 BUN/Creatinine Ratio 20 (6-20) Glucose Level 240 mg/dL (70-99) Calcium Level 8.9 mg/dL (8.5-10.1) Total Bilirubin 0.2 mg/dL (0.2-1.0) Aspartate Amino Transf (AST/SGOT) 11 U/L (15-37) Alanine Aminotransferase (ALT/SGPT) 11 U/L (14-59) Alkaline Phosphatase 69 U/L (46-116) Total Protein 7.3 g/dL (6.4-8.2) Albumin 2.8 g/dL (3.4-5.0) Albumin/Globulin Ratio 0.6 (1.0-1.7) Brief Hospital Course Ms Garcia is a 74-year-old female who saw Dr. Meme Hagen of the ENT service and was told to go to the ER. Admitted the patient with infection to her parotid gland. 03/03-03/04: continued ceftriaxone and added clindamycin to regimen to cover anaerobes and aerobes Solumedrol, clindamycin, and ceftriaxone improving parotid swelling. Counseled on use of sialogues. She is feeling much improved and requesting discharge home today. Problem list: Parotid swelling, infection. morbid obesity Hyperglycemia Consults: Meme Hagen MD, ENT Greater than 30 minutes spent on d/c on oral cefdinir, clindamycin, and prednisone with f/u with ENT outpatient. Discharge Information Condition at Discharge: Improved Follow Up: Weeks (1) Disposition/Orders: D/C to Home Scheduled Aspirin (Aspirin Ec) 325 Mg Tablet.dr, 325 MG PO DAILYWBKFT, #90 Prescribed by: MAXIMO WAITE on 04/06/18 1010 Last Action: Continued on 03/02/20550 by CALEB REEDER Atorvastatin Calcium (Atorvastatin Calcium) 80 Mg Tablet, 80 MG PO HS for FOR CHOLESTEROL, #30 Ref 0 (Reported) Entered as Reported by: JOSE WALKER on 08/13/171137 Last Action: Converted on 03/02/20550 by CALEB REEDER Carvedilol (Carvedilol ) 6.25 Mg Tablet, 1 TAB PO BID, #180 Ref 1 (Reported) Entered as Reported by: JOSE WALKER on 08/13/171137 Last Action: Continued on 03/02/20550 by CALEB REEDER Cefdinir (Cefdinir) 300 Mg Capsule, 1 CAP PO BID for Parotitis for 7 Days, #14 Prescribed by: TATI FERREIRA MD on 03/05/20 1228 Cholecalciferol (Vitamin D3) (Vitamin D3) 1,000 Unit Tablet, 2,000 UNIT PO DAILY, (Reported) Entered as Reported by: JOSE WALKER on 08/13/171137 Last Action: Continued on 03/02/20550 by CALEB REEDER Citalopram Hydrobromide (Citalopram Hbr) 10 Mg Tablet, 10 MG PO DAILY, (Reported) Entered as Reported by: WILL WEATHERS on 04/01/18 1736 Last Action: Continued on 03/02/20550 by CALEB REEDER Clindamycin Hcl (Clindamycin Hcl) 300 Mg Capsule, 1 CAP PO TID for parotitis for 7 Days, #21 Prescribed by: TATI FERREIRA MD on 03/05/20 1228 Clopidogrel Bisulfate (Clopidogrel) 75 Mg Tablet, 75 MG PO DAILYWBKFT, #90 Ref 0 Prescribed by: MAXIMO WAITE on 04/06/18 1010 Last Action: Continued on 03/02/20550 by CALEB REEDER Cyanocobalamin (Vitamin B-12) (Vitamin B-12) 1,000 Mcg Tablet, 5,000 MCG PO DAILY, (Reported) Entered as Reported by: JOSE WALKER on 08/13/171137 Last Action: Continued on 03/02/20550 by CALEB REEDER Furosemide (Furosemide) 20 Mg Tablet, 1 TAB PO DAILY for SWELLING, #90 Ref 1 (Reported) Entered as Reported by: CALEB REEDER on 03/01/202100 Last Action: Continued on 03/02/20550 by CALEB REEDER Gabapentin (Gabapentin) 600 Mg Tablet, 600 MG PO TID, (Reported) Entered as Reported by: JADA RAYA on 10/03/15 1224 Last Action: Converted on 03/02/20550 by CALEB REEDER Ipratropium Nikolai (Ipratropium Nikolai) 0.2 Mg/1 Ml Solution, 0.2 MG IH Q8HRS, (Reported) Entered as Reported by: WILL WEATHERS on 04/01/181735 Last Action: Continued on 03/02/20550 by CALEB REEDER Losartan Potassium (Losartan Potassium) 100 Mg Tablet, 100 MG PO DAILY, (R eported) Entered as Reported by: WILL WEATHERS on 04/01/181735 Last Action: Converted on 03/02/20550 by CALEB REEDER Methocarbamol (Robaxin-750) 750 Mg Tablet, 500 MG PO DAILY for MUSCLE RELAXER for 30 Days, #20 Ref 0 (Reported) Entered as Reported by: CALEB REEDER on 03/01/202100 Last Action: Continued on 03/02/20550 by CALEB REEDER Omeprazole (Omeprazole) 40 Mg Capsule.dr, 40 MG PO DAILY, (Reported) Entered as Reported by: JOSE WALKER on 08/13/171137 Last Action: Converted on 03/02/20550 by CALEB REEDER Prednisone (Prednisone) 20 Mg Tablet, 1 TAB PO DAILY for Parotitis for 5 Days, #5 Prescribed by: TATI FERREIRA MD on 03/05/208 Ranolazine (Ranexa) 500 Mg Tab.er.12h, 1 TAB PO BID for htn for 30 Days, #60 Ref 0 (Reported) Entered as Reported by: CALEB REEDER on 03/01/202100 Last Action: Continued on 03/02/20550 by CALEB REEDER Rosuvastatin Calcium (Crestor) 40 Mg Tablet, 1 TAB PO DAILY for CHOLESTEROL, #30 Ref 5 (Reported) Entered as Reported by: CALEB REEDER on 03/01/202100 Last Action: Converted on 03/02/20550 by CALEB REEDER Sennosides/Docusate Sodium (Stool Softener Tablet) 1 Each Tablet, 1 EACH PO DAILY for CONSTIPATION, (Reported) Entered as Reported by: CALEB REEDER on 03/01/202100 Last Action: Continued on 03/02/20550 by CALEB REEDER Tiotropium Nikolai (Spiriva) 18 Mcg Cap.w.dev, 1 CAP IH DAILY, #30 Ref 3 (Reported) Entered as Reported by: WILL WEATHERS on 04/01/181 Trazodone Hcl (Trazodone Hcl) 100 Mg Tablet, 1 TAB PO QHS, #30 Ref 1 (Reported) Entered as Reported by: JADA RAYA on 10/03/15 1224 Last Action: Continued on 03/02/20550 by CALEB REEDER Scheduled PRN Diphenhydramine Hcl (Benadryl) 25 Mg Capsule, 1 CAP PO DAILY PRN for ALLERGIES for 30 Days, #30 Ref 0 (Reported) Entered as Reported by: CALEB REEDER on 03/01/202100 Last Action: Continued on 03/02/20550 by CALEB REEDER Fluticasone Propionate (Fluticasone Propionate Nasal [place]) 16 Gm [place].susp, 2 SPRAY NS DAILY PRN for CONGESTION, #1 Ref 11 (Reported) Entered as Reported by: CALEB REEDER on 03/01/202100 Last Action: Continued on 03/02/20550 by CALEB REEDER Hydrocodone/Acetaminophen (Hydrocodone-Acetamin 5-325 mg) 1 Each Tablet, 1 EACH PO PRN Q6HRS PRN for PAIN for 6 Days, #15 Prescribed by: TATI FERREIRA MD on 03/05/201228 Nitroglycerin (NITROGLYCERIN SubLingual) 0.4 Mg Tab.subl, 0.4 MG SL PRN Q5MIN PRN for CHEST PAIN, (Reported) Entered as Reported by: CALEB REEDER on 03/01/202100 Last Action: Continued on 03/02/20 0551 by CALEB REEDER Justicifation of Admission Dx: Justifications for Admission: Justification of Admission Dx: Yes TATI FERREIRA MD Mar 05, 2020 23:01
== END 2020-03-05 16:00 | disposition home or self-care (01) | DRG 154 ==
LOC: ER 16:15 → 5 NORTH 17:16 → OBSVTOIN 03-02 11:38
PROVIDERS: ADMIT Internal Medicine; ATTEND Internal Medicine
DX: K11.20 Sialoadenitis, unspecified (principal); E43 Unspecified severe protein-calorie malnutrition; E66.01 Morbid (severe) obesity due to excess calories; E78.5 Hyperlipidemia, unspecified; F17.200 Nicotine dependence, unspecified, uncomplicated; I12.9 Hypertensive chronic kidney disease with stage 1 through stage 4 chronic kidney disease, or unspecified chronic kidney disease; I25.10 Atherosclerotic heart disease of native coronary artery without angina pectoris; J44.9 Chronic obstructive pulmonary disease, unspecified; N18.9 Chronic kidney disease, unspecified; R73.9 Hyperglycemia, unspecified; Z82.49 Family history of ischemic heart disease and other diseases of the circulatory system; Z88.0 Allergy status to penicillin; Z90.49 Acquired absence of other specified parts of digestive tract; Z90.710 Acquired absence of both cervix and uterus; Z95.5 Presence of coronary angioplasty implant and graft; K21.9 Gastro-esophageal reflux disease without esophagitis; M19.90 Unspecified osteoarthritis, unspecified site; Z20.828 Contact with and (suspected) exposure to other viral communicable diseases; Z68.36 Body mass index [BMI] 36.0-36.9, adult; Z88.8 Allergy status to other drugs, medicaments and biological substances; Z91.040 Latex allergy status; I25.2 Old myocardial infarction; Z79.899 Other long term (current) drug therapy
CPT/HCPCS: 36415; 80048; 80053; 85007; 85025; 94760; 96374; G0378; G0379; J0696; J2270; J2930; J3490; 99285-25

== ENCOUNTER → 2020-06-28 | Outpatient (CLI) | payer MEDICARE ==
[~2020-06-28] MED LIST changes: +AMLO-186 PO; -AMLO5TAB10 PO; +CALC-627 PO; -CALC1TAB75 PO; +CEFD300C PO; +CLIN300C9 PO; +CRESTOR40 MG PO; +DIPH25CA58 PO; +FURO20TA3 PO; +HYDR-2759 PO; +METH-38 PO; +NITR0.4T22 SL; +PRED20TA PO; +RANO500T2 PO; +SENN1TAB70 PO
--- NOTE | 2020-06-29 13:32 | EEG ---
DATE OF SERVICE: 06/28/2020 ELECTROENCEPHALOGRAM REPORT EEG NUMBER: [id number]. OBJECTIVE: The patient is a 74-year-old female with episodes of trembling, rule out seizures. DESCRIPTION: This is a digital study. Electrodes are placed according to the international 10-20 system. Bipolar and referential montages are available. Activation procedures typically include hyperventilation and intermittent photic stimulation. INTERPRETATION: The waking background consists of 8-9 Hz, 50-100 microvolt activity, symmetrically distributed over parietooccipital regions and reactive to eye opening. Hyperventilation and intermittent photic stimulation are noncontributory. Stage 1 sleep is achieved with normal electroencephalogram patterns. IMPRESSION: This electroencephalogram with the patient awake and asleep is within normal limits. There is no focal, paroxysmal, or epileptiform activity. Thank you for letting us help with the patient's care. MARKOS HERNANDEZ MD DR: LACY/sam JOB#: [id number] / [id number] KAYCEE Jolly
== END ==
LOC: RT 09:03
PROVIDERS: ATTEND Nurse Practitioner Family
DX: R25.1 Tremor, unspecified (principal)
CPT/HCPCS: 95816

== ENCOUNTER → 2021-06-21 | Outpatient (CLI) | payer MEDICARE ==
[~2021-06-21] MED LIST changes: -CALC600T6 PO; +CALC600T60 PO; -CITA10TA4 PO; +CITA10TA5 PO; +CLIN-94 PO; -CLIN300C9 PO; -DIPH50CA PO; +DIPH50CA16 PO; +METH-561 PO; -METH500T7 PO; +NAPR-699 PO; -NAPR250T6 PO; -OMEP40CA45 PO; +OMEP40CA7 PO
--- NOTE | 2021-06-24 09:20 | KCIC ---
EXAM: MRI RIGHT SHOULDER WITHOUT CONTRAST INDICATION: Right shoulder pain, fell in January. Limited range of motion. COMPARISON: None TECHNIQUE: Multiplanar, multisequence imaging of the right shoulder without contrast. FINDINGS: ROTATOR CUFF: Mild tendinopathy and bursal sided fraying of the anterior mid supraspinatus tendon at the footprint. No discrete rotator cuff tear. Infraspinatus, subscapularis, and teres minor tendons a re intact. No rotator cuff muscle atrophy or edema.. LABRUM: There is degenerative superior labral tearing. BICEPS TENDON: The biceps tendon is intact and located. ACROMIOCLAVICULAR JOINT: Mild acromioclavicular degenerative joint disease. Type II acromion with lat eral downsloping and a small subacromial enthesophyte. GLENOHUMERAL JOINT: Articular cartilage is intact. No acute fracture or marrow signal abnormality. Al ignment is normal. OTHER: No joint effusion. Mild subacromial-subdeltoid bursitis. IMPRESSION: 1. Mild tendinopathy and bursal sided fraying of the supraspinatus tendon. No full-thickness rotator cuff tear. 2. Subacromial-subdeltoid bursitis. 3. Mild acromioclavicular degenerative joint disease with a lateral downsloping acromion and small vargas bacromial enthesophyte. Electronically signed by: Ria Moore MD (06/24/2021 9:18 AM) [id number]
== END ==
LOC: KCIC MRI 13:10
PROVIDERS: ATTEND Family Medicine
DX: M19.011 Primary osteoarthritis, right shoulder (principal); M75.81 Other shoulder lesions, right shoulder; M75.51 Bursitis of right shoulder
CPT/HCPCS: 73221